=== PATIENT | male | born 1955 | race Caucasian/White ===

== ENCOUNTER 2019-02-03 17:05 | Inpatient (IN) | payer OTHER ==
--- NOTE | 2019-02-03 18:18 | PDOC ---
History of Present Illness - General Chief Complaint: Shortness of Breath Stated Complaint: SOB Time Seen by Provider: 02/03/19 18:16 - History of Present Illness Initial Comments: 02/03/19 19:00 HPI: 63 y/o M with hx ESRD via left arms AVF (MWF), DM, HTN, CAD s/p CABG and stents , hx of recurrent pulmonary edema requiring drainage catheter and multiple thoracenteses c/b infection and ?abscess vs empyema s/p VATS, COPD, lymphoma (s/ p radiation now in remission) presenting with 1 week of URI symptoms with SOB. He states 6 days ago he started feeling sore throat and the next couple days worsened to include cough with white sputum and sinus congestion. He has SOB at baseline due to COPD, but he said this week its worsened to the extent that he cant walk more than 10ft without SOB. He took a duonebs at home that improved symptoms slightly. He reports he is from [place], [place] and before flying to [place] he saw his PCP and was given azithromycin for bronchitis infection. After arriving to [place], his SOB worsened and needed an urgent care visit where his sats were 93% and was recommended to come to the ED. Of note, he also reports vague abdominal pain when he gets short of breath that improves after resting. Patient denies fever, chills, chest pain, palpitations, nausea, vomiting, diarrhea, constipation, dysuria, hematuria, BPR, weakness, sensory changes. PMHx: as noted above ROS: as noted SHx: Denies tobacco use; no alcohol use; no rec drugs Allergies: NKDA PCP: patient is from [place] for the weekend and has care done at [facility] in [place] ROS: GENERAL/CONSTITUTIONAL: No fever or chills. No weakness. HEAD, EYES, EARS, NOSE AND THROAT: +sore throat, sinus congestion CARDIOVASCULAR: No chest pain or shortness of breath RESPIRATORY: +cough, wheezing GASTROINTESTINAL: No nausea, vomiting, diarrhea or constipation. GENITOURINARY: No dysuria, frequency, or change in urination. MUSCULOSKELETAL: No joint or muscle swelling or pain. No neck or back pain. SKIN: No rash NEUROLOGIC: No headache, vertigo, loss of consciousness, or change in strength/ sensation. ENDOCRINE: No increased thirst. No abnormal weight change HEMATOLOGIC/LYMPHATIC: No anemia, easy bleeding, or history of blood clots. ALLERGIC/IMMUNOLOGIC: No hives or skin allergy. PE: GENERAL: Awake, alert, and fully oriented, mild acute distress HEAD: No signs of trauma, normocephalic, atraumatic EYES: EOMI, sclera anicteric, conjunctiva clear ENT: Auricles normal inspection, hearing grossly normal, nares patent, oropharynx clear without exudates. Moist mucosa NECK: Normal ROM, no lymphadenopathy LUNGS: audible cough, symmetrical chest rise, Rhonchi and wheezing auscultated in lung rodriguez through, worse on R>L HEART: Regular rate and rhythm, normal S1 and S2, no murmurs, peripheral pulses 2+ and equal bilaterally. ABDOMEN: Soft, nontender, nondistended, normoactive bowel sounds, reducible ventral hernia with no overlying skin changes. No guarding, no rebound. No masses EXTREMITIES: Normal inspection, Normal range of motion, no edema. No clubbing or cyanosis. NEUROLOGICAL: Cranial nerves II through XII grossly intact. Normal speech, normal gait, no focal sensorimotor deficits SKIN: Warm, Dry, normal turgor, no rashes or lesions noted Past History - Past Medical History Allergies/Adverse Reactions: Allergies Allergy/AdvReac Type Severity Reaction Status Date / Time No Known Allergies Allergy Verified 02/03/19 17:17 Home Medications: Ambulatory Orders Aspirin 81 mg PO DAILY 02/03/19 Calcium Acetate [Phoslo -] 667 mg PO TID 02/03/19 Candesartan Cilexetil [Atacand] 8 mg PO BID 02/03/19 Carvedilol 25 mg PO BID 02/03/19 Glipizide 10 mg PO BID 02/03/19 Montelukast Na [Singulair -] 10 mg PO DAILY 02/03/19 Pantoprazole Sodium 40 mg PO DAILY 02/03/19 Pravastatin Sodium [Pravachol (Nf)] 40 mg PO HS 02/03/19 Sodium Bicarbonate - 1,950 mg PO TID 02/03/19 Asthma: Yes Cardiac Disorders: Yes COPD: No Diabetes: Yes Other medical history: renal failure stage 4 - Surgical History Cardiac Surgery: Yes (bypass 05/2006) - Suicide/Smoking/Psychosocial Hx Smoking History: Never smoked *Physical Exam - Vital Signs Last Vital Signs Temp Pulse Resp BP Pulse Ox 98.2 F 82 20 143/62 95 02/03/19 17:12 02/03/19 17:12 02/03/19 17:12 02/03/19 17:12 02/03/19 17:12 ED Treatment Course - LABORATORY CBC & Chemistry Diagram: 02/03/19 20:05 02/03/19 20:05 Medical Decision Making - Medical Decision Making 02/03/19 21:24 63 y/o M with hx ESRD via left arms AVF (MWF), DM, HTN, CAD s/p CABG and stents , COPD, lymphoma (now in remission) presenting with 1 week of URI symptoms with SOB, currently being treated for bronchitis by PCP but now with worsening O2sats to 93% at urgent care. Sats on arrival 95%. PE notable for rhonchi and wheezing on pulmonary exam R>L -cbc, cmp, trops, bnp, vbg -ekg, cxr -duo nebs, salumedrol 125mg, ceftriaxone, azithromycin 02/03/19 23:11 patient now maintaining sats >93% after ambulation 02/03/19 23:25 discussed cxr with attending Dr Chang: right sided consolidation with concern for pna 02/03/19 23:26 ekg: NSR; RBBB; no vanessa admitted under Dr Figueroa *DC/Admit/Observation/Transfer Diagnosis at time of Disposition: Pneumonia Qualifiers: Pneumonia type: due to unspecified organism Laterality: right Lung location: middle lobe of lung Qualified Code(s): J18.1 - Lobar pneumonia, unspecified organism Fluid overload Qualifiers: Hypervolemia type: unspecified Qualified Code(s): E87.70 - Fluid overload, unspecified - Discharge Dispostion Condition at time of disposition: Stable Decision to Admit order: Yes - Referrals Referrals: ON STAFF,NOT [Primary Care Provider] - - Patient Instructions - Post Discharge Activity
--- NOTE | 2019-02-03 18:46 | PDOC ---
Attending Attestation - Resident Resident Name: Ranjan Alva - ED Attending Attestation I have performed the following: I have examined & evaluated the patient, The case was reviewed & discussed with the resident, I agree w/resident's findings & plan, Exceptions are as noted - HPI HPI: 02/03/19 18:45 63y M COPD, CHF, ESRD (MWF, last dialysis yesterday) presents with cough/sob. PT states he started with sore throat last tuesday followed by cough productive of whitish sputum starting tuesday along with CROSS - went to his PMD and was given an rx for azithromycin yesterday. He went to urgent care today who noticed he was wheezing, gave him a neb and told him to come to the ED for a cxr - pt notes some cross with his cough. denies any chest pain. pt does note some epigastric pain from his hernia when he is coughing. denies any diaphoresis , leg swelling, hemoptysis, back pain. . GENERAL: The patient is awake, alert, and fully oriented, Nontoxic - in no acute distress. HEAD: Normocephalic, atraumatic. EYES: extraocular movements intact, sclera anicteric, conjunctiva clear. ENT: Normal voice, Moist mucous membranes. NECK: Normal range of motion, supple LUNGS: no acute respiratory distress, scattered wheezing and rhonchi HEART: Regular rate and rhythm, normal S1 and S2 without murmur, rub or gallop. ABDOMEN: Soft, nontender, No guarding, no rebound. No CVA tenderness, soft reducible hernia on epigastrium in midline. EXTREMITIES: Normal range of motion, no edema. vascular access in RUE with thrill NEUROLOGICAL: No facial assymetry, Normal speech, moving all 4 extremities spontaneously and symemtrically PSYCH: Normal mood, normal affect. SKIN: Warm, Dry, normal turgor, a/p likely copd exacerbation vs viral illness consider fluid overload, chf, pna will obtain blood work, vbg, bnp, cxr will give duonebs and steroids will reassess - Physicial Exam PE: 02/09/19 13:51 see above - Medical Decision Making 02/03/19 19:17 signed out to evening team to reaseses
[2019-02-03] MEDS ORDERED: ALBUTEROL SO4 2.5/IPRATROPIUM 0.5 INH SOL 3 ML VIAL.NEB. NEB ONE (18:53)
[2019-02-03] MEDS ORDERED: methylPREDNISolone NA SUCC 125 MG/2 ML VIAL IVPUSH ONE (19:16)
[2019-02-03] MEDS ORDERED: methylPREDNISolone NA SUCC 125 MG/2 ML VIAL ONE (19:43)
[2019-02-03] MEDS ORDERED: ALBUTEROL SO4 0.083% IH SOL 2.5 MG/3 ML VIAL.NEB. NEB ONE (19:43)
[2019-02-03] MEDS ORDERED: CEFTRIAXONE 1 GM in DEXTROSE 5%-WATER - 50 ML IVPB ONE (19:56)
[2019-02-03] MEDS ORDERED: AZITHROMYCIN IVPB 500 MG in DEXTROSE 5%-WATER - 250 ML IVPB ONE (19:56)
--- NOTE | 2019-02-03 20:13 | PDOC ---
*Physical Exam - Vital Signs Last Vital Signs Temp Pulse Resp BP Pulse Ox 98.2 F 82 20 143/62 95 02/03/19 17:12 02/03/19 17:12 02/03/19 17:12 02/03/19 17:12 02/03/19 17:12 ED Treatment Course - LABORATORY CBC & Chemistry Diagram: 02/03/19 20:05 02/03/19 20:05 - Medications Given in the ED: ED Medications Discontinued Medications Generic Name Dose Route Start Last Admin Trade Name Terry PRN Reason Stop Dose Admin Albuterol/Ipratropium 1 amp 02/03/19 18:53 02/03/19 19:45 Duoneb - NEB 02/03/19 18:54 1 amp ONCE ONE Administration Methylprednisolone Sodium Succinate 125 mg 02/03/19 19:16 02/03/19 19:50 Solu-Medrol - IVPUSH 02/03/19 19:17 125 mg ONCE ONE Administration Medical Decision Making - Medical Decision Making 02/03/19 20:12Case signed out to me. Pt has cough and coarse breath sounds bilaterally. Pt has no fever. Pt has rhonchi and egophony. 02/03/19 20:56 Pt has a BNP of 5500 and he will be admitted for fluid overload and possible pneumonia *DC/Admit/Observation/Transfer Diagnosis at time of Disposition: Pneumonia, Fluid overload - Referrals - Patient Instructions - Post Discharge Activity
[2019-02-03 20:16] LABS: HEMATOCRIT 37.5 % (35.4-49); HEMOGLOBIN 12.3 GM/dL (11.7-16.9); LYMPH % 21.5 % (8-40); MCH 31.7 pg (25.7-33.7); MCHC 32.7 g/dl (32.0-35.9); MONO % 12.3 % (3.8-10.2); NEUT % 59.2 % (42.8-82.8); RBC 3.86 M/mm3 (4.00-5.60); RDW 14.5 % (11.9-15.9); WHITE BLOOD COUNT 7.1 K/mm3 (4.0-10.0)
[2019-02-03 20:18] LABS: VENOUS PC02 48.2 mmHg (38-52); VENOUS PH 7.33 (7.31-7.41)
[2019-02-03 20:19] LABS: VENOUS PO2 < 49 mmHg (28-48)
[2019-02-03 20:26] LABS: MEAN PLT VOLUME 9.7 fl (7.5-11.1); PLATELET COUNT 114 K/MM3 (134-434)
[2019-02-03] MEDS ORDERED: AZITHROMYCIN IVPB 500 MG/250 ML BAG IVPB ONE (20:47)
[2019-02-03] MEDS ORDERED: CEFTRIAXONE 1 GM/50 ML BAG ONE (20:47)
[2019-02-03 21:04] LABS: ALBUMIN 3.5 g/dl (3.4-5.0); BILIRUBIN,TOTAL 0.5 mg/dL (0.2-1); BLOOD UREA NITROGEN 75.1 mg/dL (7-18); CALCIUM 7.3 mg/dL (8.5-10.1); POTASSIUM 4.3 mmol/L (3.5-5.1)
[2019-02-03 21:06] LABS: CREATININE 9.2 mg/dL (0.55-1.3)
--- NOTE | 2019-02-04 00:46 | PN ---
Teaching Attending Note Name of Resident: Kush Jin ATTENDING PHYSICIAN STATEMENT I saw and evaluated the patient. Chart, data, imaging reviewed. I reviewed the resident's note and discussed the case with the resident. I agree with the resident's findings and plan as documented. SUBJECTIVE: 63yo man with CAD s/p 4 vessel CABG 2006 a [facility], COPD, DM, HTN, lymphoma, ESRD on HD, here visiting from [place], reports cough, malaise, since 01/30, says his boss was sick and might have infected him, received azithromcyin rx from PCP the next day which didnt help. Went to urgent care center 02/03 in am, received nebulizer treatment which helped slightly, came to ER seeking cxr. s/p azithromcyin, ceftriaxone in er. OBJECTIVE: Last Vital Signs Temp Pulse Resp BP Pulse Ox 98.1 F 82 20 155/77 96 02/03/19 23:04 02/03/19 23:04 02/03/19 23:04 02/03/19 23:04 02/03/19 23:04 general - coughing, hoarseness heent- at, nc, mild pharyngeal injection neck supple cv s1+s2+ rrr no murmur chest- diffuse rhonchi, mild exp wheezing abd- soft, nt, bs+ ext left upper ext avf fistula, good thrill, bruit, chronic venous changes on lower extremities b/ Abnormal Lab Results 02/03/19 02/03/19 02/03/19 20:05 20:05 20:05 RBC 3.86 L MCV 97.0 H Plt Count 114 L Monocytes % 12.3 H Eosinophils % 6.0 H POC VBG pO2 BUN 75.1 H Creatinine 9.2 H* Random Glucose 339 H Calcium 7.3 L Alkaline Phosphatase 202 H B-Natriuretic Peptide 5523.0 H Total Protein 6.0 L 02/03/19 20:05 RBC MCV Plt Count Monocytes % Eosinophils % POC VBG pO2 < 49 H BUN Creatinine Random Glucose Calcium Alkaline Phosphatase B-Natriuretic Peptide Total Protein cxr - reviewed- right mid/lower lobe infiltrate ekg - nsr, rbbb q waves in anterior lateral leads , poor r wave progression, prolonged qtc ASSESSMENT AND PLAN: #Community acquired pneumonia with poor response to azithromycin in immunocompromised patient. Likely pna superimposed on viral uri -flu swab -blood cultures x2 -ur legionella ag -sputum culture -vancomcyin 1g stat -cefepime 1g IV -supplemental oxygen -antibiotics should be dosed for renal failure -lactate -ID consult #ESRD - hd m,w,f -renal consult for HD -avoid ARB in renal failure -sodium bicard home dose -fluid restriction #DM - uncontrolled hyperglycemia -lantus 10 units qhs -novolog sliding scale #CAD/ s/p cabg, no baseline echo -echo to evaluate for chf -pravastatin home dose -carvedilol home dose #nonhodgkin lymphona #COPD? -duonebs q6hrs prn #DVT ppx - heparin sc
[2019-02-04] MEDS ORDERED: ALBUTEROL SO4 2.5/IPRATROPIUM 0.5 INH SOL 3 ML VIAL.NEB. NEB PRN (00:48)
--- NOTE | 2019-02-04 01:37 | HP ---
CHIEF COMPLAINT: SOB PCP: HISTORY OF PRESENT ILLNESS: Mr. Pereira is a 63 yo man with history ESRD (MWF dialysis), DM, HTN, CAD s/p CABG and stents, COPD and lymphoma (s/p radiation, now in remission). The patient also reported a hx of recurrent pulmonary edema requiring drainage catheter and multiple thoracenteses c/b infection s/p VATS. The patient said that he had this issue until about 7 years ago when he began dialysis. After starting dialysis he reports he has not had any issues with pulmonary edema. The patient is visiting from [facility]. In the ED the patient presented with a CC of URI symptoms with SOB since 01/30. He states that his boss at work was sick and that a few days ago he started feeling sore throat and the next couple days worsened to include cough with white sputum and sinus congestion. He says that on he visited his PCP and they prescribed him a Zpack. He states it doesn't seem to be helping yet but notes he still has 2 days remaining. He also reports that for the past several months he has been noticing increasing shortness of breath on exertion. He states that he finds it difficult to lay flat on his back and finds that laying on his side makes it easier to breath. He also reports that his friend gifted him a wedge pillow to try and sleep with, however he finds it uncomfortable so he doesn't use it. The patient also has some chronic SOB at baseline due to his COPD, but noted that in the last few days it has acutely worsened and he can hardly walk without symptoms. He came to the ED at the advice of an urgent care center he visted after arriving in [place] because of his worsening SOB. They discovered he was satting in the low 90s and recommended he come in. Patient denies fever, chills, chest pain, palpitations, nausea, vomiting, diarrhea, constipation, dysuria, hematuria, weakness, numbness or tingling in the hands or feet. In the ED he was given azithromycin and ceftriaxone. CXR showed an area of questionable consolidation in the R lower lobe, in addition to bilateral blunting of the costophrenic angles and clips present from his CABG. Recent Travel: yes, is visiting from [place] where he lives. PAST MEDICAL HISTORY: ESRD (MWF), DM, HTN, CAD s/p CABG and stents, COPD, Lymphoma (s/p radation, now in remission). PAST SURGICAL HISTORY: CABG and stents (2006) VATs Social History: Smoking: denies Alcohol: denies Drugs: denies Family History: Mother- DM Father- HF Allergies- No Known Allergies Allergy (Verified 02/03/19 17:17) HOME MEDICATIONS: Home Medications Medication Instructions Recorded Aspirin 81 mg PO DAILY 02/03/19 Calcium Acetate [Phoslo -] 667 mg PO TID 02/03/19 Candesartan Cilexetil [Atacand] 8 mg PO BID 02/03/19 Carvedilol 25 mg PO BID 02/03/19 Glipizide 10 mg PO BID 02/03/19 Montelukast Na [Singulair -] 10 mg PO DAILY 02/03/19 Pantoprazole Sodium 40 mg PO DAILY 02/03/19 Pravastatin Sodium [Pravachol (Nf)] 40 mg PO HS 02/03/19 Sodium Bicarbonate - 1,950 mg PO TID 02/03/19 REVIEW OF SYSTEMS CONSTITUTIONAL: Absent: fever, chills, diaphoresis, generalized weakness, malaise, loss of appetite, weight change HEENT: sore throat, sinus congestion Absent: rhinorrhea, throat swelling, difficulty swallowing, mouth swelling, ear pain, eye pain, visual changes CARDIOVASCULAR: Absent: chest pain, syncope, palpitations, irregular heart rate, lightheadedness , peripheral edema RESPIRATORY: cough, wheezing Absent: cough, shortness of breath, dyspnea with exertion, orthopnea, wheezing, stridor, hemoptysis GASTROINTESTINAL: Absent: abdominal pain, abdominal distension, nausea, vomiting, diarrhea, constipation, melena, hematochezia GENITOURINARY: Absent: dysuria, frequency, urgency, hesitancy, hematuria, flank pain, genital pain MUSCULOSKELETAL: Absent: myalgia, arthralgia, joint swelling, back pain, neck pain SKIN: Absent: rash, itching, pallor HEMATOLOGIC/IMMUNOLOGIC: Absent: easy bleeding, easy bruising, lymphadenopathy, frequent infections ENDOCRINE: Absent: unexplained weight gain, unexplained weight loss, heat intolerance, cold intolerance NEUROLOGIC: Absent: headache, focal weakness or paresthesias, dizziness, unsteady gait, seizure, mental status changes, bladder or bowel incontinence PSYCHIATRIC: Absent: anxiety, depression, suicidal or homicidal ideation, hallucinations. PHYSICAL EXAMINATION Vital Signs - 24 hr 02/03/19 02/03/19 17:12 23:04 Temperature 98.2 F 98.1 F Pulse Rate 82 Pulse Rate [ 82 Apical] Respiratory 20 20 Rate Blood Pressure 143/62 Blood Pressure 155/77 [Right Arm] O2 Sat by Pulse 95 96 Oximetry (%) GENERAL: Awake, sleepy, and fully oriented, in no acute distress. HEAD: Normal with no signs of trauma. EYES: Pupils equal, round and reactive to light, extraocular movements intact, sclera anicteric, conjunctiva clear. No lid lag. EARS, NOSE, THROAT: Ears normal, nares patent, oropharynx clear without exudates. Moist mucous membranes. NECK: Normal range of motion, supple without lymphadenopathy. LUNGS: Breath sounds equal to auscultation bilaterally, crackles and ronchi noted throughout all lung rodriguez. Expiratory wheezes noted at the bases R>L. No accessory muscle use. HEART: Distant heart sounds, regular rate and rhythm, normal S1 and S2. ABDOMEN: Soft, nontender, not distended, normoactive bowel sounds, no guarding, no rebound. Small reducible hernia noted in epigastric area. MUSCULOSKELETAL: Normal range of motion at all joints. No bony deformities or tenderness. No CVA tenderness. UPPER EXTREMITIES: 2+ pulses, warm, well-perfused. No cyanosis. No clubbing. No peripheral edema, LUE has dialysis fistula with palpable thrill. LOWER EXTREMITIES: 2+ pulses, warm, well-perfused. No calf tenderness. No peripheral edema. NEUROLOGICAL: Cranial nerves II-XII intact. Normal speech. Gait not observed. PSYCHIATRIC: Cooperative. Good eye contact. Appropriate mood and affect. SKIN: Warm, dry, normal turgor. Laboratory Results - last 24 hr 02/03/19 02/03/19 02/03/19 20:05 20:05 20:05 WBC 7.1 RBC 3.86 L Hgb 12.3 Hct 37.5 MCV 97.0 H MCH 31.7 MCHC 32.7 RDW 14.5 Plt Count 114 L MPV 9.7 Absolute Neuts (auto) 4.2 Neutrophils % 59.2 Lymphocytes % 21.5 Monocytes % 12.3 H Eosinophils % 6.0 H Basophils % 1.0 Nucleated RBC % 0 VBG pH POC VBG pCO2 POC VBG pO2 VBG HCO3 VBG O2 Sat (Jazmin) VBG Base Excess Sodium 137 Potassium 4.3 Chloride 99 Carbon Dioxide 27 Anion Gap 12 BUN 75.1 H Creatinine 9.2 H* Est GFR (CKD-EPI)AfAm 6.36 Est GFR (CKD-EPI)NonAf 5.49 Random Glucose 339 H Calcium 7.3 L Total Bilirubin 0.5 AST 15 ALT 17 Alkaline Phosphatase 202 H Troponin I 0.03 B-Natriuretic Peptide 5523.0 H Total Protein 6.0 L Albumin 3.5 02/03/19 20:05 WBC RBC Hgb Hct MCV MCH MCHC RDW Plt Count MPV Absolute Neuts (auto) Neutrophils % Lymphocytes % Monocytes % Eosinophils % Basophils % Nucleated RBC % VBG pH 7.33 POC VBG pCO2 48.2 POC VBG pO2 < 49 H VBG HCO3 24.4 VBG O2 Sat (Jazmin) 74.3 VBG Base Excess -1.4 Sodium Potassium Chloride Carbon Dioxide Anion Gap BUN Creatinine Est GFR (CKD-EPI)AfAm Est GFR (CKD-EPI)NonAf Random Glucose Calcium Total Bilirubin AST ALT Alkaline Phosphatase Troponin I B-Natriuretic Peptide Total Protein Albumin ASSESSMENT/PLAN: Mr. Pereira is a 63 yo man with history ESRD (MWF dialysis), DM, HTN, CAD s/p CABG and stents, COPD and lymphoma (s/p radiation, now in remission) presenting with a 1 week history of worsening SOB accompanied by productive cough with white sputum. #CAP- Patient presnting with productive cough, sick contacts, CXR with possible consolidation present in the RLL, and physical exam findings of crackles/ ronchi and expiratory wheezes at the bases R>L. Possible PNA superimposed on viral URI - flu swab - blood cultures x2 - ur legionella ag - sputum culture - vancomcyin 1g stat - cefepime 1g IV - supplemental oxygen - antibiotics should be dosed for renal failure - lactate - ID consult #ESRD - Hemodialysis on m,w,f - renal consult for HD - avoid ARB in renal failure - sodium bicarb home dose - fluid restriction #DM - uncontrolled hyperglycemia - lantus 10 units qhs - novolog sliding scale #CAD s/p cabg, no baseline echo. Patient denies CHF diagnosis but has significan cardiac history, appears volume overloaded on exam and endorses symptoms such as difficulty breathing flat on his back. On exam the patient has crackles and ronchi in all lung rodriguez and sounds volume overloaded. - echo to evaluate for chf - pravastatin home dose - carvedilol home dose #nonhodgkin lymphona #COPD -duonebs q6hrs prn #DVT ppx - heparin sc Visit type - Emergency Visit Emergency Visit: Yes ED Registration Date: 02/03/19 Care time: The patient presented to the Emergency Department on the above date and was hospitalized for further evaluation of their emergent condition. - New Patient This patient is new to me today: Yes Date on this admission: 02/05/19 - Critical Care Critical Care patient: No ATTENDING PHYSICIAN STATEMENT I saw and evaluated the patient. I reviewed the resident's note and discussed the case with the resident. I agree with the resident's findings and plan as documented. SUBJECTIVE: OBJECTIVE: ASSESSMENT AND PLAN:
[2019-02-04] MEDS: HEPARIN NA (PORCINE) 5,000 UNITS/ML 1ML VIAL SQ SCH ×3 (06:31→21:26)
[2019-02-04] MEDS: INSULIN SLIDING SCALE (NOVOLOG) 1 VIAL SQ SCH ×5 (06:32→21:05)
[2019-02-04] MEDS: SODIUM BICARBONATE 650 MG TABLET PO SCH ×3 (06:32→21:26)
[2019-02-04 07:10] LABS: ARTERIAL BLD GAS O2 SATURATION 96.2 % (95-98); ARTERIAL BLOOD GAS BASE EXCESS -4.4 meq/l (-2-2); ARTERIAL BLOOD GAS PCO2 41.2 mmHg (35-45); ARTERIAL BLOOD GAS PO2 94.1 mmHg (80-100); ARTERIAL BLOOD GAS pH 7.33 (7.35-7.45)
[2019-02-04 07:11] LABS: ALLENS TEST POSITIVE
[2019-02-04] MEDS: CALCIUM ACETATE 667 MG CAPSULE (FP) PO SCH ×3 (08:29→17:09)
[2019-02-04] MEDS ORDERED: CEFEPIME HCL 1 GM VIAL (RESTRICTED TO ID) ONE (09:22)
[2019-02-04] MEDS ORDERED: DEXTROSE 5%-WATER 100 ML IVPB ONE (09:23)
[2019-02-04] MEDS: ASPIRIN 81 MG CHEWABLE TABLETS PO SCH (09:29)
[2019-02-04] MEDS: PANTOPRAZOLE 40 MG TABLET (FP) PO SCH (09:29)
[2019-02-04] MEDS: CARVEDILOL 25 MG TABLET (FP) PO SCH ×2 (09:29→21:26)
[2019-02-04] MEDS ORDERED: ENOXAPARIN NA (PORCINE) 40 MG/0.4 ML DISP.SYRIN SQ SCH (10:00)
[2019-02-04] MEDS ORDERED: VANCOMYCIN 1 GM in D5W (PRE-DOCKED) 1,000 MG/250 ML IVPB SCH (10:00)
[2019-02-04] MEDS ORDERED: CEFEPIME 1 GM in DEXTROSE 5%-WATER 100 ML IVPB SCH (10:00)
[2019-02-04 10:09] LABS: BASO % 0.1 % (0-2.0); EOS % 0.1 % (0-4.5); HEMATOCRIT 36.1 % (35.4-49); HEMOGLOBIN 12.1 GM/dL (11.7-16.9); LYMPH % 11.1 % (8-40); MCH 32.3 pg (25.7-33.7); MCHC 33.6 g/dl (32.0-35.9); MEAN PLT VOLUME 9.7 fl (7.5-11.1); MONO % 2.3 % (3.8-10.2); NEUT % 86.4 % (42.8-82.8); PLATELET COUNT 116 K/MM3 (134-434); RBC 3.76 M/mm3 (4.00-5.60); RDW 14.7 % (11.9-15.9); WHITE BLOOD COUNT 5.7 K/mm3 (4.0-10.0)
--- NOTE | 2019-02-04 10:37 | CON.NEP ---
Consult Consult Specialty:: nephrology Reason for Consultation:: esrd - History of Present Illness Chief Complaint: cough History of Present Illness: 63 y/o M with hx ESRD via left arms AVF (MWF), DM, HTN, CAD s/p CABG and stents , hx of recurrent pulmonary edema requiring drainage catheter and multiple thoracenteses c/b infection and ?abscess vs empyema s/p VATS, COPD, lymphoma (s/ p radiation now in remission) presenting with 1 week of URI symptoms with SOB. He states 6 days ago he started feeling sore throat and the next couple days worsened to include cough with white sputum and sinus congestion. He has SOB at baseline due to COPD, but he said this week its worsened to the extent that he cant walk more than 10ft without SOB. He took a duonebs at home that improved symptoms slightly. He reports he is from [place], [place] and before flying to [place] he saw his PCP and was given azithromycin for bronchitis infection. After arriving to [place], his SOB worsened and needed an urgent care visit where his sats were 93% and was recommended to come to the ED. Of note, he also reports vague abdominal pain when he gets short of breath that improves after resting. 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 He has high interdialytic weight gains and usually has about 4 liters of fluid removed. Has severe hyperparathyroidism and was on parsabiv but it was stopped for unclear reasons. He takes renvela 3 tabs and phoslo 1 tab tid. - History Source History Provided By: Patient, Family Member, Medical Record - Past Medical History Cardio/Vascular: Yes: CHF Pulmonary: Yes: Bronchitis, COPD Renal/: Yes: Renal Failure, Hemodialysis Heme/Onc: Yes: Cancer (lymphoma) Endocrine: Yes: Diabetes Mellitus, Hyperparathyroidism (secondary) - Past Surgical History Past Surgical History: Yes: CABG - Alcohol/Substance Use Hx Alcohol Use: No - Smoking History Smoking history: Never smoked Home Medications - Allergies Allergies/Adverse Reactions: Allergies Allergy/AdvReac Type Severity Reaction Status Date / Time No Known Allergies Allergy Verified 02/03/19 17:17 - Home Medications Home Medications: Ambulatory Orders Aspirin 81 mg PO DAILY 02/03/19 Calcium Acetate [Phoslo -] 667 mg PO TID 02/03/19 Candesartan Cilexetil [Atacand] 8 mg PO BID 02/03/19 Carvedilol 25 mg PO BID 02/03/19 Glipizide 10 mg PO BID 02/03/19 Montelukast Na [Singulair -] 10 mg PO DAILY 02/03/19 Pantoprazole Sodium 40 mg PO DAILY 02/03/19 Pravastatin Sodium [Pravachol (Nf)] 40 mg PO HS 02/03/19 Sodium Bicarbonate - 1,950 mg PO TID 02/03/19 Renvela - 800 mg PO TID 02/04/19 Review of Systems - Review of Systems Constitutional: reports: No Symptoms Eyes: reports: No Symptoms HENT: reports: Throat Pain Neck: reports: No Symptoms Cardiovascular: reports: Shortness of Breath Respiratory: reports: Cough, SOB, SOB on Exertion Gastrointestinal: reports: Abdominal Pain Genitourinary: reports: No Symptoms Breasts: reports: No Symptoms Reported Musculoskeletal: reports: No Symptoms Integumentary: reports: No Symptoms Neurological: reports: No Symptoms Endocrine: reports: No Symptoms Hematology/Lymphatic: reports: No Symptoms Psychiatric: reports: No Symptoms Nephrology Consult - Height Height: 5 ft 6 in - Weight Weight: 200 lb 7 oz - BMI Body Mass Index (BMI): 32.3 - Lab Results CBC,BMP: CBC, BMP 02/04/19 09:30 Anion Gap: Anion Gap Anion Gap 12 MMOL/L (8-16) 02/03/19 20:05 - Imaging Chest X-ray: Report Reviewed, Image Reviewed - Physical Examination Vital Signs: Vital Signs Temperature 97.8 F 02/04/19 03:34 Pulse Rate 82 02/04/19 03:34 Respiratory Rate 18 02/04/19 03:34 Blood Pressure 156/77 02/04/19 03:34 O2 Sat by Pulse Oximetry (%) 95 02/04/19 08:32 Constitutional: Yes: No Distress, Calm, Mild Distress Eyes: Yes: Conjunctiva Clear, EOM Intact HENT: Yes: Atraumatic, Normocephalic Neck: Yes: Supple, Trachea Midline Cardiovascular: Yes: Regular Rate and Rhythm, Murmur Respiratory: Yes: Diminished (diminished on left) Gastrointestinal: Yes: Soft Renal/: Yes: WNL Access for Hemodialysis: AV Fistula Musculoskeletal: Yes: WNL Extremities: Yes: WNL Edema: Yes Edema: LLE: Trace, RLE: Trace Integumentary: Yes: Other (has a scar on left chest posteriorly) Neurological: Yes: Alert, Oriented Psychiatric: Yes: Alert, Oriented Assessment/Plan IMPRESSION esrd h/o NHL in remission htn h/o cabg h/o thoracotomy probable copd exacerbation reduced breath sounds on left may be from previous surgery- pleural reaction secondary hyperparathyroidism previously on parsabiv which was stopped possibly because of hypocalcemia PLAN will write orders for HD tomorrow would obtain CT of chest to evaluate reduced breath sounds further can get calcitriol for low calcium though he says he is noncompliant with meds antibiotics per primary team MV
[2019-02-04 10:46] LABS: BLOOD UREA NITROGEN 90.8 mg/dL (7-18); CALCIUM 7.6 mg/dL (8.5-10.1); MAGNESIUM 2.1 mg/dL (1.8-2.4); PHOSPHOROUS 5.4 mg/dL (2.5-4.9); POTASSIUM 5.2 mmol/L (3.5-5.1)
[2019-02-04 10:50] LABS: CREATININE 10.2 mg/dL (0.55-1.3)
[2019-02-04] MEDS ORDERED: SODIUM CHLORIDE 250 ML IV PRN (10:50)
--- NOTE | 2019-02-04 11:44 | PN ---
Progress Note (short form) - Note Progress Note: Seen and examined; please see overnight note for today's exam for billing, etc. 63 y/o male admitted for CAP; found to have DM with uncontrolled hypergly to 500s this AM but no positive anion gap. EKG documented as having prolonged QTc but I don't see a complete study uploaded so will repeat. Problems: -SOB: On my review of CXR looks overloaded; per radiology blunted CP angles, etc. consistent with fluid overload. Checking echo, fluid removal with HD. Consult CV if reduced LVEF and try to obtain old records. -Presumed CAP: Failed OP azithro; CXR read noted and states 'no infiltrates.' Continue coverage until verified with CT given presumed immunocompromise. Plan on adding atypical coverage with doxy if true PNA on CT. Followup urine Ags, sputum and blood cultures. Weaning from O2 as tolerated. -DM with uncontrolled hypergly: No anion gap; giving IV insulin. Changing to q4h fsg with SSI coverage and titrate up long acting based on requirements. Check A1c. Monitor closely on floor. -ESRD on HD: Renal following; to dialyze. -HyperK: Mild with no EKG changes noted -Hx HTN -? Long QTc: Followup EKG; I can't find the physical ER study or the uploaded copy Visit type - Emergency Visit Emergency Visit: No - New Patient This patient is new to me today: Yes Date on this admission: 02/04/19 - Critical Care Critical Care patient: No
[2019-02-04] MEDS ORDERED: ALBUTEROL SO4 0.042% IH SOL 1.25 MG/3 ML VIAL.NEB NEB PRN (11:57)
[2019-02-04] MEDS: ALBUTEROL SO4 2.5/IPRATROPIUM 0.5 INH SOL 3 ML VIAL.NEB. NEB SCH ×3 (12:40→20:05)
[2019-02-04] MEDS ORDERED: INSULIN REGULAR HUMAN 100 UNITS/ML *VIAL IVPUSH ONE (13:00)
[2019-02-04] MEDS: predniSONE 20 MG TABLET (UD) PO SCH (13:00)
[2019-02-04] MEDS: CALCITRIOL 1 MCG/ML BOT PO SCH (13:00)
--- NOTE | 2019-02-04 14:04 | CON.ID ---
Consult Consult Specialty:: infectious diseases Referred by:: Dr Sinclair Reason for Consultation:: r/o pneumonia,sob - History of Present Illness Chief Complaint: sob,bronchitis History of Present Illness: 63y M who lives in [place] COPD, CHF, ESRD presents with cough/sob. PT states he started with sore throat last tuesday followed by cough productive of whitish sputum starting tuesday went to his PMD and was given an rx for azithromycin . He went to urgent care today who noticed he was wheezing, gave him a neb and told him to come to the ED for a cxr - pt notes some encinas with his cough. denies any chest pain. pt does note some epigastric pain from his hernia when he is coughing. denies any diaphoresis, leg swelling, hemoptysis, back pain. denies any fever any other issues,says he has had bronchitis couple of times currently has a voice change but has remained stable - History Source History Provided By: Patient, Family Member Limitations to Obtaining History: No Limitations - Past Medical History Cardio/Vascular: Yes: CHF Pulmonary: Yes: Bronchitis, COPD Renal/: Yes: Renal Failure, Hemodialysis Endocrine: Yes: Diabetes Mellitus, Hyperparathyroidism (secondary) - Past Surgical History Past Surgical History: Yes: CABG - Alcohol/Substance Use Hx Alcohol Use: No - Smoking History Smoking history: Never smoked Home Medications - Allergies Allergies/Adverse Reactions: Allergies Allergy/AdvReac Type Severity Reaction Status Date / Time No Known Allergies Allergy Verified 02/03/19 17:17 - Home Medications Home Medications: Ambulatory Orders Aspirin 81 mg PO DAILY 02/03/19 Calcium Acetate [Phoslo -] 667 mg PO TID 02/03/19 Candesartan Cilexetil [Atacand] 8 mg PO BID 02/03/19 Carvedilol 25 mg PO BID 02/03/19 Glipizide 10 mg PO BID 02/03/19 Montelukast Na [Singulair -] 10 mg PO DAILY 02/03/19 Pantoprazole Sodium 40 mg PO DAILY 02/03/19 Pravastatin Sodium [Pravachol (Nf)] 40 mg PO HS 02/03/19 Sodium Bicarbonate - 1,950 mg PO TID 02/03/19 Renvela - 800 mg PO TID 02/04/19 Review of Systems - Review of Systems Constitutional: reports: No Symptoms Eyes: reports: No Symptoms HENT: reports: No Symptoms Neck: reports: No Symptoms Cardiovascular: reports: No Symptoms Respiratory: reports: Cough, SOB, SOB on Exertion Gastrointestinal: reports: No Symptoms Genitourinary: reports: No Symptoms Musculoskeletal: reports: No Symptoms Integumentary: reports: No Symptoms Neurological: reports: No Symptoms Endocrine: reports: No Symptoms Hematology/Lymphatic: reports: No Symptoms Psychiatric: reports: No Symptoms Physical Exam Vital Signs: Vital Signs Temperature 97.8 F 02/04/19 03:34 Pulse Rate 82 02/04/19 03:34 Respiratory Rate 18 02/04/19 03:34 Blood Pressure 156/77 02/04/19 03:34 O2 Sat by Pulse Oximetry (%) 95 02/04/19 08:32 Constitutional: Yes: Well Nourished, Calm, Mild Distress Eyes: Yes: Conjunctiva Clear HENT: Yes: Atraumatic, Normocephalic Neck: Yes: Supple, Trachea Midline Cardiovascular: Yes: Regular Rate and Rhythm Respiratory: Yes: Regular, CTA Bilaterally Gastrointestinal: Yes: Normal Bowel Sounds, Soft Musculoskeletal: Yes: WNL Extremities: Yes: Other (fistula site) Neurological: Yes: Alert, Oriented Psychiatric: Yes: Alert, Oriented Labs: CBC, BMP 02/04/19 09:30 02/04/19 09:30 Imaging - Results Chest X-ray: Report Reviewed, Image Reviewed Cat Scan: Report Reviewed, Image Reviewed Assessment/Plan esrd h/o NHL in remission htn h/o cabg h/o thoracotomy copd bronchitis plan will monitor off of abx probably symptoms due to fluid overload dialysis rest as per the team
[2019-02-04] MEDS: SEVELAMER CARBONATE 800 MG TAB (FP) PO SCH ×2 (14:46→21:26)
--- NOTE | 2019-02-04 15:38 | CON.CARD ---
Consult Consult Specialty:: cardiology Referred by:: hospitalist Reason for Consultation:: sob - History of Present Illness Chief Complaint: sob, cough History of Present Illness: 63 year old man with pmh HTN, DMII, HLD, CAD s/p CABG 2006 [facility], lymphoma, ESRD on HD, COPD, h/o recurrent pleural effusions s/p thoracentesis and VATS, lives in [place] where he sees his physicians, flew here last week, admitted with sob and cough. pt states he began feeling sick while in [place] but flew here anyway. states his boss was sick at work with a cold. [facility] he follows closely with his reproductive surgeon in [place] and recently underwent a preop work up for renal transplant consideration. [facility] he had a cardiac cath 09/2018 that showed no sig new obstructive CAD and medical management was recommended. was started on tx for AE COPD as outpatient with bronchodilators and azithromycin but did not improve so came to the hospital. he was seen and examined today in [facility]. states he is feeling a little better since admission. denies any chest pain, palpitations, pnd, orthopnea or LE edema. - History Source History Provided By: Patient, Family Member - Past Medical History Cardio/Vascular: Yes: CAD, CHF Pulmonary: Yes: Bronchitis, COPD Renal/: Yes: Renal Failure, Hemodialysis Endocrine: Yes: Diabetes Mellitus, Hyperparathyroidism (secondary) - Past Surgical History Past Surgical History: Yes: CABG - Alcohol/Substance Use Hx Alcohol Use: No - Smoking History Smoking history: Never smoked - Social History ADL: Independent Home Medications - Allergies Allergies/Adverse Reactions: Allergies Allergy/AdvReac Type Severity Reaction Status Date / Time No Known Allergies Allergy Verified 02/03/19 17:17 - Home Medications Home Medications: Ambulatory Orders Aspirin 81 mg PO DAILY 02/03/19 Calcium Acetate [Phoslo -] 667 mg PO TID 02/03/19 Candesartan Cilexetil [Atacand] 8 mg PO BID 02/03/19 Carvedilol 25 mg PO BID 02/03/19 Glipizide 10 mg PO BID 02/03/19 Montelukast Na [Singulair -] 10 mg PO DAILY 02/03/19 Pantoprazole Sodium 40 mg PO DAILY 02/03/19 Pravastatin Sodium [Pravachol (Nf)] 40 mg PO HS 02/03/19 Sodium Bicarbonate - 1,950 mg PO TID 02/03/19 Renvela - 800 mg PO TID 02/04/19 Family Disease History - Family Disease History Family History: Denies Review of Systems - Review of Systems Constitutional: reports: Weakness. denies: No Symptoms, Chills, Diaphoresis, Fever, Lethargy, Loss of Appetite, Malaise, Night Sweats, Unintentional Wgt. Loss, Other Eyes: denies: No Symptoms, Blind Spots, Blurred Vision, Double Vision, Eye Pain , Floaters, Photophobia, Recent Change in Vision, Other HENT: denies: No Symptoms, Difficult Swallowing, Ear Discharge, Ear Pain, Epistaxis, Gingival Bleeding, Hearing Loss, Mouth Swelling, Nasal Congestion, Ocular Prosthesis, Throat Pain, Toothache, Ringing in Ears, Other Neck: denies: No Symptoms, Decreased ROM, Lumps, Pain on Movement, Stiffness, Swollen Glands, Tenderness, Other Cardiovascular: reports: Shortness of Breath. denies: No Symptoms, Chest Pain, Edema, Palpitations, Other Respiratory: reports: Cough, Exercise Intolerance, SOB, SOB on Exertion. denies : No Symptoms, Hemoptysis, Orthopnea, PND, Snoring, Wheezing, Other Gastrointestinal: denies: No Symptoms, Abdominal Pain, Bloating, Constipation, Diarrhea, Dysphagia, Indigestion, Melena, Nausea, Rectal Bleeding, Vomiting, Vomiting Blood, Other Genitourinary: denies: No Symptoms, Burning, Discharge, Dysuria, Flank Pain, Frequency, Hematuria, Incontinence, Lesions, Menses, Pain, Testicular Mass, Testicular Pain, Testicular Swelling, Urgency, Vaginal Bleeding, Other Breasts: denies: No Symptoms Reported, See HPI, Breast Implants, Discharge from Nipple, Lumps, Pain, Skin Changes, Other Musculoskeletal: denies: No Symptoms, Back Pain, Crepitus, Decreased ROM, Extremity Pain, Joint Pain, Joint Swelling, Muscle Pain, Muscle Cramps, Muscle Weakness, Other Integumentary: denies: No Symptoms, Blister, Bruising, Change in Color, Eczema, Erythema, Incision, Lesions, Lump, Pallor, Pruritis, Rash, Wound, Other Neurological: denies: No Symptoms, Change in LOC, Change in Speech, Confusion, Dizziness, Headache, Incoordination, Numbness, Parasthesia, Pre-Existing Deficit , Seizure, Syncope, Tremors, Unsteady Gait, Weakness, Other Endocrine: denies: No Symptoms, Excessive Sweating, Flushing, Increased Hunger, Increased Thirst, Intolerance to Cold, Intolerance to Heat, Unexplained Weight Gain, Unexplained Weight Loss, Other Hematology/Lymphatic: denies: No Symptoms, Easily Bruised, Excessive Bleeding, Swollen Glands, Other Psychiatric: denies: No Symptoms, Altered Sleep Pattern, Anxiety, Depression, Hallucinations, Panic, Paranoia, Suicidal, Other - Risk Factors Known Risk Factors: Yes: Hypercholesterolemia, Hypertension Vital Signs: Vital Signs Temperature 97.8 F 02/04/19 03:34 Pulse Rate 82 02/04/19 03:34 Respiratory Rate 18 02/04/19 03:34 Blood Pressure 156/77 02/04/19 03:34 O2 Sat by Pulse Oximetry (%) 95 02/04/19 08:32 Constitutional: Yes: No Distress, Calm Eyes: Yes: Conjunctiva Clear, EOM Intact, PERRL HENT: Yes: Atraumatic, Normocephalic Neck: Yes: Supple, Trachea Midline Respiratory: Yes: Regular, Diminished, On Nasal O2, Rales, Rhonchi, Wheezes. No : SOB Gastrointestinal: Yes: Normal Bowel Sounds, Soft. No: Distention, Tenderness Cardiovascular: Yes: Regular Rate and Rhythm. No: Bradycardia, Tachycardia, Pulse Irregular, Gallop, Rub, Varicosities JVD: No Carotid Bruit: No PMI: Non-Displaced Heart Sounds: Yes: S1, S2. No: Split S2, S3, S4, Clicks, Gallop, Rub, Bruit Murmur: No: Systolic Murmur Extremities: Yes: WNL Edema: No Peripheral Pulses WNL: Yes Neurological: Yes: Alert, Oriented Psychiatric: Yes: Alert, Oriented - Other Data Labs, Other Data: CBC, BMP 02/04/19 09:30 02/04/19 09:30 Troponin, BNP 02/03/19 02/03/19 02/04/19 20:05 20:05 09:30 Troponin I 0.03 < 0.02 B-Natriuretic Peptide 5523.0 H Troponin, BNP 02/03/19 02/03/19 02/04/19 20:05 20:05 09:30 Troponin I 0.03 < 0.02 B-Natriuretic Peptide 5523.0 H Imaging - Results Chest X-ray: Report Reviewed, Image Reviewed EKG: Report Reviewed, Image Reviewed Other: Report Reviewed, Image Reviewed Assessment/Plan 63 year old man with pmh HTN, DMII, HLD, CAD s/p CABG 2006 [facility], lymphoma, ESRD on HD, COPD, h/o recurrent pleural effusions s/p thoracentesis and VATS, lives in [place] where he sees his physicians, flew here last week, admitted with sob and cough. pt states he began feeling sick while in [place] but flew here anyway. states his boss was sick at work with a cold. states he follows closely with his reproductive surgeon in [place] and recently underwent a preop work up for renal transplant consideration. [facility] he had a cardiac cath 09/2018 that showed no sig new obstructive CAD and medical management was recommended. was started on tx for AE COPD as outpatient with bronchodilators and azithromycin but did not improve so came to the hospital. he was seen and examined today in [facility]. states he is feeling a little better since admission. denies any chest pain, palpitations, pnd, orthopnea or LE edema. SOB/Cough -most likely AE COPD -possible mild component of pulm vascular congestion with known h/o CAD/CABG and presume chronic systolic CHF based on pts report -cardiac enzymes wnl, not c/w acs -recent cardiac cath showed no sig recurrent CAD that would need PCI and was medically managed -cont tx of AE COPD -volume removal with HD as needed -cont home cardiac meds -no additional cardiac testing is needed at this time. will see as needed. please call with additional questions.
--- NOTE | 2019-02-04 16:26 | EKG ---
Test Reason : Blood Pressure : / mmHG Vent. Rate : 077 BPM Atrial Rate : 077 BPM P-R Int : 160 ms QRS Dur : 158 ms QT Int : 462 ms P-R-T Axes : 075 265 -06 degrees QTc Int : 522 ms NORMAL SINUS RHYTHM RIGHT BUNDLE BRANCH BLOCK OLD INFERIOR INFARCT ABNORMAL ECG WHEN COMPARED WITH ECG OF 03-FEB-2019 19:39, NO SIGNIFICANT CHANGE WAS FOUND Confirmed by ELENITA VALENCIA MD ([id number]) on 02/04/2019 4:26:11 PM Referred By: Radha VELÁSQUEZ Confirmed By:ELENITA VALENCIA MD
--- NOTE | 2019-02-04 16:40 | EKG ---
Test Reason : Blood Pressure : / mmHG Vent. Rate : 079 BPM Atrial Rate : 079 BPM P-R Int : 166 ms QRS Dur : 154 ms QT Int : 448 ms P-R-T Axes : 072 252 -05 degrees QTc Int : 513 ms NORMAL SINUS RHYTHM RIGHT BUNDLE BRANCH BLOCK OLD INFERIOR INFARCT ABNORMAL ECG WHEN COMPARED WITH ECG OF 16-JUL-2009 10:26, RIGHT BUNDLE BRANCH BLOCK IS NOW PRESENT INFERIOR INFARCT NOT PRESENT Confirmed by ELENITA VALENCAI MD ([id number]) on 02/04/2019 4:40:08 PM Referred By: Confirmed By:ELENITA VALENCIA MD
[2019-02-04] MEDS: guaiFENesin 200 MG/10 ML 10 ML UNIT-DOSE CUPS PO PRN (17:09)
[2019-02-04] MEDS: ATORVASTATIN CA 10 MG TABLET (FP) PO SCH (21:26)
[2019-02-04] MEDS: MONTELUKAST NA 10 MG TABLET PO SCH (21:26)
[2019-02-05] MEDS: INSULIN SLIDING SCALE (NOVOLOG) 1 VIAL SQ SCH ×6 (00:29→21:18)
[2019-02-05] MEDS: SEVELAMER CARBONATE 800 MG TAB (FP) PO SCH ×3 (05:39→21:20)
[2019-02-05] MEDS: HEPARIN NA (PORCINE) 5,000 UNITS/ML 1ML VIAL SQ SCH ×3 (05:39→21:20)
[2019-02-05] MEDS: SODIUM BICARBONATE 650 MG TABLET PO SCH ×3 (05:39→21:19)
[2019-02-05] MEDS: guaiFENesin 200 MG/10 ML 10 ML UNIT-DOSE CUPS PO PRN ×2 (05:42→21:27)
[2019-02-05] MEDS: ALBUTEROL SO4 2.5/IPRATROPIUM 0.5 INH SOL 3 ML VIAL.NEB. NEB SCH ×4 (08:00→20:05)
[2019-02-05 08:01] LABS: BASO % 0.2 % (0-2.0); HEMOGLOBIN 10.8 GM/dL (11.7-16.9); LYMPH % 10.3 % (8-40); MCHC 33.6 g/dl (32.0-35.9); MEAN CELL VOLUME 95.1 fl (80-96); MONO % 4.8 % (3.8-10.2); NEUT % 84.7 % (42.8-82.8); PLATELET COUNT 95 K/MM3 (134-434); RBC 3.37 M/mm3 (4.00-5.60); RDW 14.7 % (11.9-15.9); WHITE BLOOD COUNT 8.1 K/mm3 (4.0-10.0)
[2019-02-05 08:05] LABS: ALBUMIN 3.1 g/dl (3.4-5.0); BILIRUBIN,TOTAL 0.5 mg/dL (0.2-1); CALCIUM 7.1 mg/dL (8.5-10.1); MAGNESIUM 1.9 mg/dL (1.8-2.4); PHOSPHOROUS 6.5 mg/dL (2.5-4.9); POTASSIUM 5.5 mmol/L (3.5-5.1); TOT PROT 5.2 g/dl (6.4-8.2)
[2019-02-05 08:30] LABS: BLOOD UREA NITROGEN 123.4 mg/dL (7-18); CREATININE 11.1 mg/dL (0.55-1.3)
[2019-02-05] MEDS: CARVEDILOL 25 MG TABLET (FP) PO SCH ×2 (09:00→21:19)
--- NOTE | 2019-02-05 09:37 | PN ---
Progress Note, Physician History of Present Illness: says still coughing voice sounds better - Current Medication List Current Medications: Active Medications Albuterol Sulfate (Ventolin 0.042trength) -) 1 amp NEB Q4H PRN PRN Reason: SHORT OF BREATH/WHEEZING Albuterol/Ipratropium (Duoneb -) 1 amp NEB RQID [facility] Last Admin: 02/05/19 08:00 Dose: 1 amp Aspirin (Asa -) 81 mg PO DAILY [facility] Last Admin: 02/04/19 09:29 Dose: 81 mg Atorvastatin Calcium (Lipitor -) 10 mg PO HS [facility] Last Admin: 02/04/19 21:26 Dose: 10 mg Calcitriol (Rocaltrol Liquid -) 0.5 mcg PO DAILY [facility] Last Admin: 02/04/19 13:00 Dose: 0.5 mcg Calcium Acetate (Phoslo -) 667 mg PO TIDCM [facility] Last Admin: 02/04/19 17:09 Dose: 667 mg Carvedilol (Coreg -) 25 mg PO BID [facility] Last Admin: 02/04/19 21:26 Dose: 25 mg Guaifenesin (Robitussin -) 10 ml PO Q6H PRN PRN Reason: COUGH Last Admin: 02/05/19 05:42 Dose: 10 ml Heparin Sodium (Porcine) (Heparin -) 5,000 unit SQ TID [facility] Last Admin: 02/05/19 05:39 Dose: 5,000 unit Cefepime HCl 1 gm/ Dextrose 100 mls @ 200 mls/hr IVPB DAILY [facility]; Protocol Sodium Chloride (Normal Saline -) 250 mls @ 3,000 mls/hr IV PRN PRN PRN Reason: Hypotension during Dialysis Stop: 02/05/19 10:50 Insulin Aspart (Novolog Vial Sliding Scale -) 1 vial SQ Q4H [facility]; Protocol Last Admin: 02/05/19 05:39 Dose: 2 units Montelukast Sodium (Singulair -) 10 mg PO HS [facility] Last Admin: 02/04/19 21:26 Dose: 10 mg Pantoprazole Sodium (Protonix -) 40 mg PO DAILY [facility] Last Admin: 02/04/19 09:29 Dose: 40 mg Prednisone (Deltasone -) 60 mg PO DAILY [facility] Last Admin: 02/04/19 13:00 Dose: 60 mg Sevelamer Carbonate (Renvela -) 800 mg PO TID [facility] Last Admin: 02/05/19 05:39 Dose: 800 mg Sodium Bicarbonate (Sodium Bicarbonate -) 1,950 mg PO TID [facility] Last Admin: 02/05/19 05:39 Dose: 1,950 mg Valsartan (Diovan -) 160 mg PO DAILY [facility] Vancomycin HCl (Vancomycin (Pre-Docked)) 1,000 mg IVPB DAILY [facility]; Protocol - Objective Vital Signs: Vital Signs Temperature 97.5 F L 02/05/19 05:42 Pulse Rate 73 02/05/19 05:42 Respiratory Rate 02/05/19 05:42 Blood Pressure 147/66 02/05/19 05:42 O2 Sat by Pulse Oximetry (%) 96 02/04/19 22:00 Constitutional: Yes: Calm, Mild Distress Cardiovascular: Yes: S1, S2 Respiratory: Yes: Regular, Other Gastrointestinal: Yes: Normal Bowel Sounds, Soft Musculoskeletal: Yes: WNL Extremities: Yes: WNL Neurological: Yes: Alert, Oriented Psychiatric: Yes: Alert, Oriented Labs: CBC, BMP 02/05/19 06:45 02/05/19 06:45 Assessment/Plan esrd h/o NHL in remission htn h/o cabg h/o thoracotomy copd bronchitis plan continue current mgmt dialysis await for sputum gm stain will decide after that if patient needs abx
[2019-02-05] MEDS: CALCIUM ACETATE 667 MG CAPSULE (FP) PO SCH ×3 (09:56→17:54)
--- NOTE | 2019-02-05 11:05 | CON.PULM ---
Consult Consult Specialty:: PULMONARY Referred by:: Dr Jeff Reason for Consultation:: shortness of breath - History of Present Illness Chief Complaint: shortness of breath History of Present Illness: 63yo male with h/o HTN, DM, CAD s/p CABG, COPD, lymphoma s/p RT, ESRD on HD, recurrent pleural effusions s/p VATS who was admitted with worsening shortness of breath x 1 week. Denies chest pain or palpitations. Was told that he was wheezing at his last HD session. +nonproductive cough. No fevers, chills or sweats. CT chest done showing areas of bronchiectasis. He is a never smoker. He worked mostly in a [employer] but did work in an [employer] shop x 9 years. No pets. - History Source History Provided By: Patient, Family Member, Medical Record Limitations to Obtaining History: No Limitations - Past Medical History Cardio/Vascular: Yes: CAD, CHF Pulmonary: Yes: Bronchitis, COPD Renal/: Yes: Renal Failure, Hemodialysis Endocrine: Yes: Diabetes Mellitus, Hyperparathyroidism (secondary) - Past Surgical History Past Surgical History: Yes: CABG - Alcohol/Substance Use Hx Alcohol Use: No - Smoking History Smoking history: Never smoked - Social History ADL: Independent Home Medications - Allergies Allergies/Adverse Reactions: Allergies Allergy/AdvReac Type Severity Reaction Status Date / Time No Known Allergies Allergy Verified 02/03/19 17:17 - Home Medications Home Medications: Ambulatory Orders Aspirin 81 mg PO DAILY 02/03/19 Calcium Acetate [Phoslo -] 667 mg PO TID 02/03/19 Candesartan Cilexetil [Atacand] 8 mg PO BID 02/03/19 Carvedilol 25 mg PO BID 02/03/19 Glipizide 10 mg PO BID 02/03/19 Montelukast Na [Singulair -] 10 mg PO DAILY 02/03/19 Pantoprazole Sodium 40 mg PO DAILY 02/03/19 Pravastatin Sodium [Pravachol (Nf)] 40 mg PO HS 02/03/19 Sodium Bicarbonate - 1,950 mg PO TID 02/03/19 Renvela - 800 mg PO TID 02/04/19 Review of Systems - Review of Systems Constitutional: reports: Weakness. denies: Chills, Fever Eyes: denies: Recent Change in Vision HENT: denies: Nasal Congestion, Throat Pain Neck: denies: Stiffness, Tenderness Cardiovascular: reports: Shortness of Breath. denies: Chest Pain, Palpitations Respiratory: reports: Cough, Exercise Intolerance, SOB on Exertion, Wheezing. denies: Hemoptysis Gastrointestinal: denies: Abdominal Pain, Nausea, Vomiting Genitourinary: denies: Dysuria, Hematuria Neurological: denies: Dizziness, Headache Endocrine: denies: Unexplained Weight Loss Physical Exam Vital Sings: Vital Signs Temperature 97.5 F L 02/05/19 05:42 Pulse Rate 73 02/05/19 05:42 Respiratory Rate 02/05/19 05:42 Blood Pressure 147/66 02/05/19 05:42 O2 Sat by Pulse Oximetry (%) 96 02/04/19 22:00 Constitutional: Yes: Calm Eyes: Yes: Conjunctiva Clear, EOM Intact HENT: Yes: Atraumatic, Normocephalic Neck: Yes: Supple, Trachea Midline Cardiovascular: Yes: Regular Rate and Rhythm Respiratory: Yes: Diminished (distant breath sounds), Poor Air Entry ...Clubbing: No Gastrointestinal: Yes: Normal Bowel Sounds, Soft. No: Tenderness Edema: Yes Neurological: Yes: Alert, Oriented Labs: CBC, BMP 02/05/19 06:45 02/05/19 06:45 ABG Results ABG pH 7.33 (7.35-7.45) L 02/04/19 06:50 ABG pCO2 at Pt Temp 41.2 mmHg (35-45) 02/04/19 06:50 ABG pO2 at Pt Temp 94.1 mmHg (80-100) 02/04/19 06:50 ABG HCO3 20.9 mmol/L (22-27) L 02/04/19 06:50 ABG O2 Sat (Measured) 96.2 % (95-98) 02/04/19 06:50 ABG O2 Content 17.0 % vol 02/04/19 06:50 ABG Base Excess -4.4 meq/l (-2-2) L 02/04/19 06:50 Imaging - Results Chest X-ray: Report Reviewed, Image Reviewed Cat Scan: Report Reviewed, Image Reviewed (no infiltrates, +bronchiectasis) Assessment/Plan Acute COPD Exacerbation Bronchiectasis CAD s/p CABG ESRD on HD HTN DM h/o Lymphoma - would start IV medrol - inhaled bronchodilators standing and PRN - O2 to keep SpO2 >90% - HD per renal - will need outpt PFTs and further work up of his bronchiectasis - DVT prophylaxis Thank you for this consult Javed Herrera MD
[2019-02-05] MEDS: predniSONE 20 MG TABLET (UD) PO SCH (12:51)
--- NOTE | 2019-02-05 14:10 | PN ---
Progress Note, Physician History of Present Illness: Pt seen and examined at bedside. He is tolerating HD. He feels that his breathing is improved. - Current Medication List Current Medications: Active Medications Albuterol Sulfate (Ventolin 0.042trength) -) 1 amp NEB Q4H PRN PRN Reason: SHORT OF BREATH/WHEEZING Albuterol/Ipratropium (Duoneb -) 1 amp NEB RQID [facility]NI Last Admin: 02/05/19 12:00 Dose: Not Given Aspirin (Asa -) 81 mg PO DAILY [facility] Last Admin: 02/04/19 09:29 Dose: 81 mg Atorvastatin Calcium (Lipitor -) 10 mg PO HS [facility]NI Last Admin: 02/04/19 21:26 Dose: 10 mg Calcitriol (Rocaltrol Liquid -) 0.5 mcg PO DAILY [facility] Last Admin: 02/04/19 13:00 Dose: 0.5 mcg Calcium Acetate (Phoslo -) 667 mg PO TIDCM [facility]NI Last Admin: 02/05/19 09:56 Dose: 667 mg Carvedilol (Coreg -) 25 mg PO BID [facility] Last Admin: 02/04/19 21:26 Dose: 25 mg Guaifenesin (Robitussin -) 10 ml PO Q6H PRN PRN Reason: COUGH Last Admin: 02/05/19 05:42 Dose: 10 ml Heparin Sodium (Porcine) (Heparin -) 5,000 unit SQ TID [facility] Last Admin: 02/05/19 05:39 Dose: 5,000 unit Cefepime HCl 1 gm/ Dextrose 100 mls @ 200 mls/hr IVPB DAILY [facility]; Protocol Insulin Aspart (Novolog Vial Sliding Scale -) 1 vial SQ Q4H [facility]; Protocol Last Admin: 02/05/19 12:51 Dose: Not Given Methylprednisolone Sodium Succinate (Solu-Medrol -) 40 mg IVPUSH Q8H-IV [facility] Montelukast Sodium (Singulair -) 10 mg PO HS [facility] Last Admin: 02/04/19 21:26 Dose: 10 mg Pantoprazole Sodium (Protonix -) 40 mg PO DAILY [facility] Last Admin: 02/04/19 09:29 Dose: 40 mg Sevelamer Carbonate (Renvela -) 800 mg PO TID [facility] Last Admin: 02/05/19 05:39 Dose: 800 mg Sodium Bicarbonate (Sodium Bicarbonate -) 1,950 mg PO TID [facility] Last Admin: 02/05/19 05:39 Dose: 1,950 mg Valsartan (Diovan -) 160 mg PO DAILY [facility] Vancomycin HCl (Vancomycin (Pre-Docked)) 1,000 mg IVPB DAILY [facility]; Protocol - Objective Vital Signs: Vital Signs Temperature 97.9 F 02/05/19 11:00 Pulse Rate 62 02/05/19 13:30 Respiratory Rate 18 02/05/19 13:30 Blood Pressure 135/52 L 02/05/19 13:30 O2 Sat by Pulse Oximetry (%) 96 02/05/19 09:00 Constitutional: Yes: Calm Eyes: Yes: Conjunctiva Clear HENT: Yes: Atraumatic Neck: Yes: Supple Cardiovascular: Yes: S1, S2 Respiratory: Yes: On Nasal O2, Wheezes Gastrointestinal: Yes: Normal Bowel Sounds, Soft Genitourinary: Yes: WNL Edema: Yes Edema: LLE: 1+, RLE: 1+ Neurological: Yes: Oriented Psychiatric: Yes: Oriented Labs: CBC, BMP 02/05/19 06:45 02/05/19 06:45 Assessment/Plan Current Medications Generic Name Dose Route Start Last Admin Trade Name Freq PRN Reason Stop Dose Admin Albuterol Sulfate 1 amp 02/04/19 11:57 Ventolin 0.042trength) - NEB Q4H PRN SHORT OF BREATH/WHEEZING Albuterol/Ipratropium 1 amp 02/04/19 12:00 02/05/19 12:00 Duoneb - NEB Not Given RQID ANNI Aspirin 81 mg 02/04/19 10:00 02/04/19 09:29 Asa - PO 81 mg DAILY ANNI Administration Atorvastatin Calcium 10 mg 02/04/19 22:00 02/04/19 21:26 Lipitor - PO 10 mg HS ANNI Administration Calcitriol 0.5 mcg 02/04/19 11:00 02/04/19 13:00 Rocaltrol Liquid - PO 0.5 mcg DAILY [facility]NI Administration Calcium Acetate 667 mg 02/04/19 08:00 02/05/19 09:56 Phoslo - PO 667 mg TIDCM ANNI Administration Carvedilol 25 mg 02/04/19 10:00 02/04/19 21:26 Coreg - PO 25 mg BID ANNI Administration Guaifenesin 10 ml 02/04/19 16:35 02/05/19 05:42 Robitussin - PO 10 ml Q6H PRN Administration COUGH Heparin Sodium (Porcine) 5,000 unit 02/04/19 06:00 02/05/19 05:39 Heparin - SQ 5,000 unit TID ANNI Administration Cefepime HCl 1 gm/ Dextrose 100 mls @ 200 mls/hr 02/05/19 10:00 IVPB DAILY [facility] Protocol Insulin Aspart 1 vial 02/04/19 12:00 02/05/19 12:51 Novolog Vial Sliding Scale - SQ Not Given Q4H [facility] Protocol Methylprednisolone Sodium Succinate 40 mg 02/05/19 11:45 Solu-Medrol - IVPUSH Q8H-IV [facility]NI Montelukast Sodium 10 mg 02/04/19 22:00 02/04/19 21:26 Singulair - PO 10 mg HS ANNI Administration Pantoprazole Sodium 40 mg 02/04/19 10:00 02/04/19 09:29 Protonix - PO 40 mg DAILY [facility] Administration Sevelamer Carbonate 800 mg 02/04/19 14:00 02/05/19 05:39 Renvela - PO 800 mg TID ANNI Administration Sodium Bicarbonate 1,950 mg 02/04/19 06:00 02/05/19 05:39 Sodium Bicarbonate - PO 1,950 mg TID ANNI Administration Valsartan 160 mg 02/05/19 10:00 Diovan - PO DAILY [facility] Vancomycin HCl 1,000 mg 02/05/19 10:00 Vancomycin (Pre-Docked) IVPB DAILY [facility] Protocol IMPRESSION esrd h/o NHL in remission htn h/o cabg h/o thoracotomy copd exacerbation PLAN - HD today - renal diet - ct reviewed, he should follow with pmd and pulmonary when he returns to [place] - antibiotics per primary team - increase dose of phoslo - cont caltitriol
--- NOTE | 2019-02-05 16:21 | ECHO ---
Name: EDGAR DOMINGUEZ Exam:Adult Echocardiogram Study Date: 02/05/2019 08:51 AM Age: 63 yrs Reason For Study: eval for chf Height: 66 in Weight: 200 lb BSA: 2.0 m2 MMode/2D Measurements & Calculations IVSd: 0.98 cm Ao root diam: 3.0 cm LVIDd: 5.3 cm LA dimension: 4.1 cm LVIDs: 4.1 cm LVPWd: 1.2 cm LVPWs: 1.7 cm EDV(Mickyich): 137.0 ml ESV(Teich): 74.0 ml LAV (MOD-bp): 94.0 ml Doppler Measurements & Calculations MV E max serge: 126.5 cm/sec Ao V2 max: 141.2 cm/sec MV A max serge: 59.8 cm/sec Ao max P.0 mmHg MV E/A: 2.1 Ao V2 mean: 108.3 cm/sec MV dec time: 0.17 sec Ao mean P.3 mmHg Ao V2 VTI: 35.8 cm LV V1 max P.9 mmHg MR max serge: 502.9 cm/sec LV V1 max: 99.3 cm/sec MR max P.3 mmHg TR max serge: 488.6 cm/sec PA V2 max: 91.2 cm/sec TR max P.5 mmHg PA max P.3 mmHg RVSP(TR): 105.5 mmHg Med Peak E' Serge: 6.2 cm/sec RAP systole: 10.0 mmHg Med E/e': 20.3 Lat Peak E' Serge: 10.3 cm/sec Lat E/e': 12.2 Procedure A complete two-dimensional transthoracic echocardiogram was performed (2D, M-mode, Doppler and color flow Doppler). Technically limited study. Left Ventricle The left ventricle is normal in size. Left ventricular systolic function is moderately reduced. Eject ion Fraction = 35-40%. There is moderate global hypokinesis of the left ventricle. Right Ventricle The right ventricle is not well visualized. Atria The left atrium is mildly dilated. Right atrial size is normal. Mitral Valve There is mild mitral annular calcification. There is moderate mitral regurgitation. Tricuspid Valve The tricuspid valve is normal in structure and function. No tricuspid regurgitation. Aortic Valve There is mild aortic sclerosis.;. No aortic regurgitation is present. Pulmonic Valve The pulmonic valve is not well visualized. Mild pulmonic valvular regurgitation. Great Vessels The aortic root is normal size. Pericardium/Pleura There is no pericardial effusion. Interpretation Summary The left ventricle is normal in size. Left ventricular systolic function is moderately reduced. There is moderate global hypokinesis of the left ventricle. Ejection Fraction = 35-40%. The right ventricle is not well visualized. The left atrium is mildly dilated. Right atrial size is normal. There is mild mitral annular calcification. There is moderate mitral regurgitation. There is mild aortic sclerosis. Mild pulmonic valvular regurgitation. There is no pericardial effusion. Previous study is not available for comparison Salvatore Baez MD 02/05/2019 04:21 PM
[2019-02-05] MEDS: PANTOPRAZOLE 40 MG TABLET (FP) PO SCH (16:25)
[2019-02-05] MEDS: CALCITRIOL 1 MCG/ML BOT PO SCH (16:26)
[2019-02-05] MEDS: VALSARTAN 160 MG TABLET (UD) PO SCH (16:26)
[2019-02-05] MEDS: ASPIRIN 81 MG CHEWABLE TABLETS PO SCH (16:37)
[2019-02-05] MEDS: methylPREDNISolone NA SUCC 40 MG/1 ML VIAL IVPUSH SCH ×2 (16:37→17:27)
--- NOTE | 2019-02-05 17:53 | PN ---
<Thor Guy - Last Filed: 02/05/19 17:41> Physical Exam: SUBJECTIVE: Patient seen and examined at bedside. OBJECTIVE: Vital Signs Period Temp Pulse Resp BP Sys/Dominguez Pulse Ox Last 24 Hr 97.4 F-98.2 F 61-80 18-20 123-153/47-103 96-96 Gen: NAD, AAOx3 HEENT: NCAT, EOMI Neck: supple, no jvd Cardio: rrr, normal s1s2, no mrg noted Pulm: expiratory wheezing abd: soft, nontender, nondistended Laboratory Results - last 24 hr 02/04/19 02/05/19 02/05/19 21:02 00:25 05:27 WBC RBC Hgb Hct MCV MCH MCHC RDW Plt Count MPV Absolute Neuts (auto) Neutrophils % Lymphocytes % Monocytes % Eosinophils % Basophils % Nucleated RBC % Sodium Potassium Chloride Carbon Dioxide Anion Gap BUN Creatinine Est GFR (CKD-EPI)AfAm Est GFR (CKD-EPI)NonAf POC Glucometer 460 291 207 Random Glucose Calcium Phosphorus Magnesium Total Bilirubin AST ALT Alkaline Phosphatase Total Protein Albumin 02/05/19 02/05/19 02/05/19 06:45 06:45 09:43 WBC 8.1 RBC 3.37 L Hgb 10.8 L Hct 32.0 L MCV 95.1 MCH 32.0 MCHC 33.6 RDW 14.7 Plt Count 95 L MPV 10.0 Absolute Neuts (auto) 6.9 Neutrophils % 84.7 H Lymphocytes % 10.3 Monocytes % 4.8 D Eosinophils % 0.0 D Basophils % 0.2 Nucleated RBC % 0 Sodium 134 L Potassium 5.5 H Chloride 93 L Carbon Dioxide 23 Anion Gap 18 H BUN 123.4 H* Creatinine 11.1 H* Est GFR (CKD-EPI)AfAm 5.07 Est GFR (CKD-EPI)NonAf 4.37 POC Glucometer 272 Random Glucose 222 H Calcium 7.1 L Phosphorus 6.5 H Magnesium 1.9 Total Bilirubin 0.5 AST 9 L ALT 15 Alkaline Phosphatase 162 H Total Protein 5.2 L Albumin 3.1 L 02/05/19 16:10 WBC RBC Hgb Hct MCV MCH MCHC RDW Plt Count MPV Absolute Neuts (auto) Neutrophils % Lymphocytes % Monocytes % Eosinophils % Basophils % Nucleated RBC % Sodium Potassium Chloride Carbon Dioxide Anion Gap BUN Creatinine Est GFR (CKD-EPI)AfAm Est GFR (CKD-EPI)NonAf POC Glucometer 112 Random Glucose Calcium Phosphorus Magnesium Total Bilirubin AST ALT Alkaline Phosphatase Total Protein Albumin Active Medications Generic Name Dose Route Start Last Admin Trade Name Terry PRN Reason Stop Dose Admin Albuterol Sulfate 1 amp 02/04/19 11:57 Ventolin 0.042trength) - NEB Q4H PRN SHORT OF BREATH/WHEEZING Albuterol/Ipratropium 1 amp 02/04/19 12:00 02/05/19 12:00 Duoneb - NEB Not Given RQID ANNI Aspirin 81 mg 02/04/19 10:00 02/05/19 16:37 Asa - PO Not Given DAILY ANNI Atorvastatin Calcium 10 mg 02/04/19 22:00 02/04/19 21:26 Lipitor - PO 10 mg HS ANNI Administration Calcitriol 0.5 mcg 02/04/19 11:00 02/05/19 16:26 Rocaltrol Liquid - PO 0.5 mcg DAILY ANNI Administration Calcium Acetate 1,334 mg 02/05/19 17:30 Phoslo - PO TIDCM ANNI Carvedilol 25 mg 02/04/19 10:00 02/05/19 09:00 Coreg - PO Not Given BID ANNI Guaifenesin 10 ml 02/04/19 16:35 02/05/19 05:42 Robitussin - PO 10 ml Q6H PRN Administration COUGH Heparin Sodium (Porcine) 5,000 unit 02/04/19 06:00 02/05/19 14:00 Heparin - SQ Not Given TID ANNI Cefepime HCl 1 gm/ Dextrose 100 mls @ 200 mls/hr 02/05/19 10:00 IVPB DAILY [facility] Protocol Insulin Aspart 1 vial 02/04/19 12:00 02/05/19 16:15 Novolog Vial Sliding Scale - SQ Not Given Q4H [facility] Protocol Methylprednisolone Sodium Succinate 40 mg 02/05/19 11:45 02/05/19 17:27 Solu-Medrol - IVPUSH 40 mg Q8H-IV ANNI Administration Montelukast Sodium 10 mg 02/04/19 22:00 02/04/19 21:26 Singulair - PO 10 mg HS ANNI Administration Pantoprazole Sodium 40 mg 02/04/19 10:00 02/05/19 16:25 Protonix - PO 40 mg DAILY ANNI Administration Sevelamer Carbonate 800 mg 02/04/19 14:00 02/05/19 16:28 Renvela - PO 800 mg TID ANNI Administration Sodium Bicarbonate 1,950 mg 02/04/19 06:00 02/05/19 16:25 Sodium Bicarbonate - PO 1,950 mg TID ANNI Administration Valsartan 160 mg 02/05/19 10:00 02/05/19 16:26 Diovan - PO 160 mg DAILY [facility]NI Administration Vancomycin HCl 1,000 mg 02/05/19 10:00 Vancomycin (Pre-Docked) IVPB DAILY [facility] Protocol ASSESSMENT/PLAN: Mr. Pereira is a 63 yo man with history ESRD (MWF dialysis), pleural effusion s/p VATS DM, HTN, CAD s/p CABG and stents, COPD and lymphoma (s/p radiation, now in remission) presenting with a 1 week history of worsening SOB accompanied by productive cough with white sputum. #SOB 2/2 bronchiectasis -Failed OP azithro -CXR neg -Per pulm will need medrol now, and out pt PFTs -viral panel pending -CT: L basilar thickening, b/l pulm nodularity, inflammatory change -Sputum and blood cultures pending -Weaning from O2 as tolerated. -ID on board #DM with uncontrolled hypergly -ISS -BGM -A1C 8.8 #ESRD on HD -Renal following, HD per schedule #HyperK -Mild with no EKG changes noted -getting HD #Hx HTN -controlled Visit type - Emergency Visit Emergency Visit: No - New Patient This patient is new to me today: Yes Date on this admission: 02/05/19 - Critical Care Critical Care patient: No ATTENDING PHYSICIAN STATEMENT I saw and evaluated the patient. I reviewed the resident's note and discussed the case with the resident. I agree with the resident's findings and plan as documented. SUBJECTIVE: OBJECTIVE: ASSESSMENT AND PLAN: <Db Jeff - Last Filed: 02/06/19 15:37> Physical Exam: Seen and examined; please refer to resident note for historical info/PE details. Personally verified all johnson aspects of charting. ATTENDING PHYSICIAN STATEMENT I saw and evaluated the patient. I reviewed the resident's note and discussed the case with the resident. I agree with the resident's findings and plan as documented. SUBJECTIVE: OBJECTIVE: ASSESSMENT AND PLAN:
--- NOTE | 2019-02-05 19:00 | PN ---
Teaching Attending Note Name of Resident: Thor Guy ATTENDING PHYSICIAN STATEMENT I saw and evaluated the patient. I reviewed the resident's note and discussed the case with the resident. I agree with the resident's findings and plan as documented. Seen and examined; no new complaints. More likely COPD; reviewed CV and pulm input. Not suspecting pna. VS, labs, imaging reviewed NAD, AAO, resting in bed. Cough better. O2 on. NC AT EOMI PERRLA RRR s1/2, slight murm Lungs with b/l slight rales but improved, w/ sym exp NT ND +BS Neuro unchanged, moves all 4 ext with normal sensory Consults, CT reviewed ASSESSMENT AND PLAN: -SOB likely 2/2 COPD exacerbation: Improved; continue weaning from IV steroids and nebs; deferring to pulmonary -Presumed CAP-less likely -Hx Empyema s/p VATS: Nonissue at this juncture; stable. -DM with uncontrolled hypergly: Continue current tx. -ESRD on HD: Renal following; to dialyze in AM. Discussed above -HyperK: Resolved -Hx HTN -Prolonged QTc Overall, less likely PNA. Less likely CHF. Consults reviewed. Sputum cx negative; off abx. Monitor on floor with steroids and nebs HD per nephro with fluid removal If remains stable off O2 and we elucidate DC HD (he wants to go back to [place]) can DC in next 24-48 hours
[2019-02-05] MEDS: ATORVASTATIN CA 10 MG TABLET (FP) PO SCH (21:19)
[2019-02-05] MEDS: MONTELUKAST NA 10 MG TABLET PO SCH (21:20)
[2019-02-06] MEDS: INSULIN SLIDING SCALE (NOVOLOG) 1 VIAL SQ SCH ×6 (00:49→19:50)
[2019-02-06] MEDS: MELATONIN 1 MG TABLET PO SCH ×2 (01:38→10:35)
[2019-02-06] MEDS: methylPREDNISolone NA SUCC 40 MG/1 ML VIAL IVPUSH SCH ×3 (02:44→17:46)
[2019-02-06] MEDS: SEVELAMER CARBONATE 800 MG TAB (FP) PO SCH ×3 (06:08→22:50)
[2019-02-06] MEDS: HEPARIN NA (PORCINE) 5,000 UNITS/ML 1ML VIAL SQ SCH ×3 (06:08→22:48)
[2019-02-06] MEDS: SODIUM BICARBONATE 650 MG TABLET PO SCH ×3 (06:08→22:49)
[2019-02-06] MEDS ORDERED: INSULIN (NOVOLOG) ASPART 100 UNITS/ML 10ML VIAL ONE ×2 (06:46→19:49)
[2019-02-06] MEDS: ALBUTEROL SO4 2.5/IPRATROPIUM 0.5 INH SOL 3 ML VIAL.NEB. NEB SCH ×4 (08:00→21:30)
[2019-02-06] MEDS: CALCIUM ACETATE 667 MG CAPSULE (FP) PO SCH ×3 (08:09→17:46)
[2019-02-06 08:52] LABS: BASO % 0.1 % (0-2.0); EOS % 0.1 % (0-4.5); HEMATOCRIT 35.3 % (35.4-49); HEMOGLOBIN 11.7 GM/dL (11.7-16.9); LYMPH % 8.6 % (8-40); MCH 31.7 pg (25.7-33.7); MCHC 33.2 g/dl (32.0-35.9); MEAN CELL VOLUME 95.5 fl (80-96); MEAN PLT VOLUME 9.6 fl (7.5-11.1); MONO % 2.1 % (3.8-10.2); NEUT % 89.1 % (42.8-82.8); PLATELET COUNT 99 K/MM3 (134-434); RBC 3.69 M/mm3 (4.00-5.60); RDW 14.3 % (11.9-15.9); WHITE BLOOD COUNT 6.5 K/mm3 (4.0-10.0)
[2019-02-06 09:26] LABS: ALBUMIN 3.4 g/dl (3.4-5.0); BILIRUBIN,TOTAL 0.6 mg/dL (0.2-1); BLOOD UREA NITROGEN 70.6 mg/dL (7-18); CALCIUM 7.7 mg/dL (8.5-10.1); CREATININE 6.8 mg/dL (0.55-1.3); POTASSIUM 5.1 mmol/L (3.5-5.1)
[2019-02-06] MEDS ORDERED: PT OWN MED DRAWER 7, Y5N ONE (09:50)
[2019-02-06] MEDS: CARVEDILOL 25 MG TABLET (FP) PO SCH ×2 (09:53→22:50)
[2019-02-06] MEDS: VALSARTAN 160 MG TABLET (UD) PO SCH (09:53)
[2019-02-06] MEDS: PANTOPRAZOLE 40 MG TABLET (FP) PO SCH (09:53)
[2019-02-06] MEDS: ASPIRIN 81 MG CHEWABLE TABLETS PO SCH ×2 (09:53→14:13)
[2019-02-06] MEDS: CALCITRIOL 1 MCG/ML BOT PO SCH (09:54)
--- NOTE | 2019-02-06 12:07 | PN ---
Progress Note, Physician History of Present Illness: stable no new issues - Current Medication List Current Medications: Active Medications Albuterol Sulfate (Ventolin 0.042trength) -) 1 amp NEB Q4H PRN PRN Reason: SHORT OF BREATH/WHEEZING Albuterol/Ipratropium (Duoneb -) 1 amp NEB RQID [facility] Last Admin: 02/06/19 08:00 Dose: 1 amp Aspirin (Asa -) 81 mg PO DAILY [facility] Last Admin: 02/06/19 09:53 Dose: 81 mg Atorvastatin Calcium (Lipitor -) 10 mg PO HS [facility] Last Admin: 02/05/19 21:19 Dose: 10 mg Calcitriol (Rocaltrol Liquid -) 0.5 mcg PO DAILY [facility] Last Admin: 02/06/19 09:54 Dose: 0.5 mcg Calcium Acetate (Phoslo -) 1,334 mg PO TIDCM [facility] Last Admin: 02/06/19 08:09 Dose: 1,334 mg Carvedilol (Coreg -) 25 mg PO BID [facility] Last Admin: 02/06/19 09:53 Dose: 25 mg Guaifenesin (Robitussin -) 10 ml PO Q6H PRN PRN Reason: COUGH Last Admin: 02/05/19 21:27 Dose: 10 ml Heparin Sodium (Porcine) (Heparin -) 5,000 unit SQ TID [facility] Last Admin: 02/06/19 06:08 Dose: 5,000 unit Cefepime HCl 1 gm/ Dextrose 100 mls @ 200 mls/hr IVPB DAILY [facility]; Protocol Insulin Aspart (Novolog Vial Sliding Scale -) 1 vial SQ Q4H [facility]; Protocol Last Admin: 02/06/19 08:08 Dose: 4 units Melatonin (Melatonin) 3 mg PO HS [facility] Last Admin: 02/06/19 01:38 Dose: 3 mg Methylprednisolone Sodium Succinate (Solu-Medrol -) 40 mg IVPUSH Q8H-IV [facility] Last Admin: 02/06/19 09:54 Dose: 40 mg Montelukast Sodium (Singulair -) 10 mg PO HS [facility] Last Admin: 02/05/19 21:20 Dose: 10 mg Pantoprazole Sodium (Protonix -) 40 mg PO DAILY [facility] Last Admin: 02/06/19 09:53 Dose: 40 mg Sevelamer Carbonate (Renvela -) 800 mg PO TID [facility] Last Admin: 02/06/19 06:08 Dose: 800 mg Sodium Bicarbonate (Sodium Bicarbonate -) 1,950 mg PO TID [facility] Last Admin: 02/06/19 06:08 Dose: 1,950 mg Valsartan (Diovan -) 160 mg PO DAILY [facility] Last Admin: 02/06/19 09:53 Dose: 160 mg Vancomycin HCl (Vancomycin (Pre-Docked)) 1,000 mg IVPB DAILY [facility]; Protocol - Objective Vital Signs: Vital Signs Temperature 98.3 F 02/06/19 10:13 Pulse Rate 76 02/06/19 10:13 Respiratory Rate 02/06/19 10:13 Blood Pressure 164/76 02/06/19 10:13 O2 Sat by Pulse Oximetry (%) 97 02/06/19 09:00 Constitutional: Yes: No Distress, Calm Cardiovascular: Yes: S1, S2 Respiratory: Yes: Regular, CTA Bilaterally Gastrointestinal: Yes: Normal Bowel Sounds, Soft Musculoskeletal: Yes: WNL Extremities: Yes: WNL Neurological: Yes: Alert, Oriented Psychiatric: Yes: Alert, Oriented Labs: CBC, BMP 02/06/19 08:10 02/06/19 08:10 Assessment/Plan esrd h/o NHL in remission htn h/o cabg h/o thoracotomy copd bronchitis plan continue current mgmt dialysis await for sputum gm stain will decide after that if patient needs abx
[2019-02-06] MEDS ORDERED: SODIUM CHLORIDE 250 ML IV PRN ×2 (12:50→13:03)
--- NOTE | 2019-02-06 12:50 | PN ---
Progress Note, Physician History of Present Illness: Pt seen and examined at bedside. He is awake and alert. He complains of wheezing at night. - Current Medication List Current Medications: Active Medications Albuterol Sulfate (Ventolin 0.042trength) -) 1 amp NEB Q4H PRN PRN Reason: SHORT OF BREATH/WHEEZING Albuterol/Ipratropium (Duoneb -) 1 amp NEB RQID [facility] Last Admin: 02/06/19 08:00 Dose: 1 amp Aspirin (Asa -) 81 mg PO DAILY [facility] Last Admin: 02/06/19 09:53 Dose: 81 mg Atorvastatin Calcium (Lipitor -) 10 mg PO HS [facility] Last Admin: 02/05/19 21:19 Dose: 10 mg Calcitriol (Rocaltrol Liquid -) 0.5 mcg PO DAILY [facility] Last Admin: 02/06/19 09:54 Dose: 0.5 mcg Calcium Acetate (Phoslo -) 1,334 mg PO TIDCM [facility] Last Admin: 02/06/19 12:16 Dose: 1,334 mg Carvedilol (Coreg -) 25 mg PO BID [facility] Last Admin: 02/06/19 09:53 Dose: 25 mg Guaifenesin (Robitussin -) 10 ml PO Q6H PRN PRN Reason: COUGH Last Admin: 02/05/19 21:27 Dose: 10 ml Heparin Sodium (Porcine) (Heparin -) 5,000 unit SQ TID [facility] Last Admin: 02/06/19 06:08 Dose: 5,000 unit Cefepime HCl 1 gm/ Dextrose 100 mls @ 200 mls/hr IVPB DAILY [facility]; Protocol Insulin Aspart (Novolog Vial Sliding Scale -) 1 vial SQ Q4H [facility]; Protocol Last Admin: 02/06/19 12:17 Dose: 8 units Melatonin (Melatonin) 3 mg PO HS [facility] Last Admin: 02/06/19 01:38 Dose: 3 mg Methylprednisolone Sodium Succinate (Solu-Medrol -) 40 mg IVPUSH Q8H-IV [facility] Last Admin: 02/06/19 09:54 Dose: 40 mg Montelukast Sodium (Singulair -) 10 mg PO HS [facility] Last Admin: 02/05/19 21:20 Dose: 10 mg Pantoprazole Sodium (Protonix -) 40 mg PO DAILY [facility] Last Admin: 02/06/19 09:53 Dose: 40 mg Sevelamer Carbonate (Renvela -) 800 mg PO TID [facility] Last Admin: 02/06/19 06:08 Dose: 800 mg Sodium Bicarbonate (Sodium Bicarbonate -) 1,950 mg PO TID [facility] Last Admin: 02/06/19 06:08 Dose: 1,950 mg Valsartan (Diovan -) 160 mg PO DAILY [facility] Last Admin: 02/06/19 09:53 Dose: 160 mg Vancomycin HCl (Vancomycin (Pre-Docked)) 1,000 mg IVPB DAILY [facility]; Protocol - Objective Vital Signs: Vital Signs Temperature 98.3 F 02/06/19 10:13 Pulse Rate 76 02/06/19 10:13 Respiratory Rate 02/06/19 10:13 Blood Pressure 164/76 02/06/19 10:13 O2 Sat by Pulse Oximetry (%) 97 02/06/19 09:00 Constitutional: Yes: Calm Eyes: Yes: Conjunctiva Clear HENT: Yes: Atraumatic Neck: Yes: Supple Cardiovascular: Yes: S1, S2 Respiratory: Yes: On Nasal O2, Wheezes Gastrointestinal: Yes: Soft, Abdomen, Obese Genitourinary: Yes: WNL Musculoskeletal: Yes: WNL Edema: Yes Edema: LLE: 2+, RLE: 2+ Neurological: Yes: Oriented Psychiatric: Yes: Oriented Labs: CBC, BMP 02/06/19 08:10 02/06/19 08:10 Assessment/Plan Current Medications Generic Name Dose Route Start Last Admin Trade Name Freq PRN Reason Stop Dose Admin Albuterol Sulfate 1 amp 02/04/19 11:57 Ventolin 0.042trength) - NEB Q4H PRN SHORT OF BREATH/WHEEZING Albuterol/Ipratropium 1 amp 02/04/19 12:00 02/06/19 08:00 Duoneb - NEB 1 amp RQID [facility]NI Administration Aspirin 81 mg 02/04/19 10:00 02/06/19 09:53 Asa - PO 81 mg DAILY [facility] Administration Atorvastatin Calcium 10 mg 02/04/19 22:00 02/05/19 21:19 Lipitor - PO 10 mg HS [facility] Administration Calcitriol 0.5 mcg 02/04/19 11:00 02/06/19 09:54 Rocaltrol Liquid - PO 0.5 mcg DAILY [facility] Administration Calcium Acetate 1,334 mg 02/05/19 17:30 02/06/19 12:16 Phoslo - PO 1,334 mg TIDCM [facility] Administration Carvedilol 25 mg 02/04/19 10:00 02/06/19 09:53 Coreg - PO 25 mg BID [facility] Administration Guaifenesin 10 ml 02/04/19 16:35 02/05/19 21:27 Robitussin - PO 10 ml Q6H PRN Administration COUGH Heparin Sodium (Porcine) 5,000 unit 02/04/19 06:00 02/06/19 06:08 Heparin - SQ 5,000 unit TID [facility] Administration Cefepime HCl 1 gm/ Dextrose 100 mls @ 200 mls/hr 02/05/19 10:00 IVPB DAILY [facility] Protocol Insulin Aspart 1 vial 02/04/19 12:00 02/06/19 12:17 Novolog Vial Sliding Scale - SQ 8 units Q4H [facility] Administration Protocol Melatonin 3 mg 02/06/19 01:30 02/06/19 01:38 Melatonin PO 3 mg HS [facility] Administration Methylprednisolone Sodium Succinate 40 mg 02/05/19 11:45 02/06/19 09:54 Solu-Medrol - IVPUSH 40 mg Q8H-IV [facility] Administration Montelukast Sodium 10 mg 02/04/19 22:00 02/05/19 21:20 Singulair - PO 10 mg HS [facility] Administration Pantoprazole Sodium 40 mg 02/04/19 10:00 02/06/19 09:53 Protonix - PO 40 mg DAILY [facility] Administration Sevelamer Carbonate 800 mg 02/04/19 14:00 02/06/19 06:08 Renvela - PO 800 mg TID [facility] Administration Sodium Bicarbonate 1,950 mg 02/04/19 06:00 02/06/19 06:08 Sodium Bicarbonate - PO 1,950 mg TID [facility] Administration Valsartan 160 mg 02/05/19 10:00 02/06/19 09:53 Diovan - PO 160 mg DAILY [facility] Administration Vancomycin HCl 1,000 mg 02/05/19 10:00 Vancomycin (Pre-Docked) IVPB DAILY [facility] Protocol IMPRESSION esrd h/o NHL in remission htn h/o cabg h/o thoracotomy copd exacerbation PLAN - will arrange for HD tomorrow - 4 hrs 2 k bath - will uf 3 liters - check phos level, increased phoslo dose
--- NOTE | 2019-02-06 12:58 | PN ---
Progress Note (short form) - Note Progress Note: PULMONARY States breathing slightly better. Coughing less. Vital Signs Period Temp Pulse Resp BP Sys/Dominguez Pulse Ox Last 24 Hr 98.3 F-98.6 F 61-84 18-20 123-164/47-76 97-97 Gen: NAD at rest Heart: RRR Lung: decreased air movement, scattered wheeze Abd: soft, nontender Ext: no edema CBC, BMP 02/06/19 08:10 02/06/19 08:10 Active Medications Albuterol Sulfate (Ventolin 0.042trength) -) 1 amp NEB Q4H PRN PRN Reason: SHORT OF BREATH/WHEEZING Albuterol/Ipratropium (Duoneb -) 1 amp NEB RQID [facility] Last Admin: 02/06/19 08:00 Dose: 1 amp Aspirin (Asa -) 81 mg PO DAILY [facility] Last Admin: 02/06/19 09:53 Dose: 81 mg Atorvastatin Calcium (Lipitor -) 10 mg PO HS [facility] Last Admin: 02/05/19 21:19 Dose: 10 mg Calcitriol (Rocaltrol Liquid -) 0.5 mcg PO DAILY [facility] Last Admin: 02/06/19 09:54 Dose: 0.5 mcg Calcium Acetate (Phoslo -) 1,334 mg PO TIDCM [facility] Last Admin: 02/06/19 12:16 Dose: 1,334 mg Carvedilol (Coreg -) 25 mg PO BID [facility] Last Admin: 02/06/19 09:53 Dose: 25 mg Guaifenesin (Robitussin -) 10 ml PO Q6H PRN PRN Reason: COUGH Last Admin: 02/05/19 21:27 Dose: 10 ml Heparin Sodium (Porcine) (Heparin -) 5,000 unit SQ TID [facility] Last Admin: 02/06/19 06:08 Dose: 5,000 unit Cefepime HCl 1 gm/ Dextrose 100 mls @ 200 mls/hr IVPB DAILY [facility]; Protocol Sodium Chloride (Normal Saline -) 250 mls @ 3,000 mls/hr IV PRN PRN PRN Reason: Hypotension during Dialysis Stop: 02/07/19 12:50 Insulin Aspart (Novolog Vial Sliding Scale -) 1 vial SQ Q4H [facility]; Protocol Last Admin: 02/06/19 12:17 Dose: 8 units Melatonin (Melatonin) 3 mg PO HS [facility] Last Admin: 02/06/19 01:38 Dose: 3 mg Methylprednisolone Sodium Succinate (Solu-Medrol -) 40 mg IVPUSH Q8H-IV [facility] Last Admin: 02/06/19 09:54 Dose: 40 mg Montelukast Sodium (Singulair -) 10 mg PO HS [facility] Last Admin: 02/05/19 21:20 Dose: 10 mg Pantoprazole Sodium (Protonix -) 40 mg PO DAILY [facility] Last Admin: 02/06/19 09:53 Dose: 40 mg Sevelamer Carbonate (Renvela -) 800 mg PO TID [facility] Last Admin: 02/06/19 06:08 Dose: 800 mg Sodium Bicarbonate (Sodium Bicarbonate -) 1,950 mg PO TID [facility] Last Admin: 02/06/19 06:08 Dose: 1,950 mg Valsartan (Diovan -) 160 mg PO DAILY [facility] Last Admin: 02/06/19 09:53 Dose: 160 mg Vancomycin HCl (Vancomycin (Pre-Docked)) 1,000 mg IVPB DAILY [facility]; Protocol A/P Acute COPD Exacerbation Bronchiectasis CAD s/p CABG ESRD on HD HTN DM h/o Lymphoma - continue medrol at current dose - inhaled bronchodilators standing and PRN - O2 to keep SpO2 >90% - HD per renal - will need outpt PFTs and further work up of his bronchiectasis - DVT prophylaxis
--- NOTE | 2019-02-06 15:07 | PN ---
Teaching Attending Note Name of Resident: Thor Guy ATTENDING PHYSICIAN STATEMENT I saw and evaluated the patient. I reviewed the resident's note and discussed the case with the resident. I agree with the resident's findings and plan as documented. Seen and examined; please refer to resident note for further historical information. Briefly, he has no complaints today and states he feels better. He likely had COPD exacerbation due to upper airway infection driving the process. He is stable on RA, ambulatory, and agreeable for DC. Need to arrange HD as he lives in [place] with no OP facility here. Will DW nephro. Still weaning from IV steroids so inpatient stay justifiable for weaning, HD, phoslo adjustment. If dialyzed, weaned to PO tomorrow can DC home. VS, labs, imaging reviewed NAD, AAO, resting in bed RRR s1/2 Lungs improved, w/ sym exp NT ND +BS CN2-12 wnl, no fnd Normal mood, appropriate behavior ASSESSMENT AND PLAN: Presents with COPD exacerbation likely 2/2 URI; complex pulmonary history but as of now no apparent pna, no apparent CHF. Weaning from steroids, HD and titrate phoslo per nephrology. Hopeful DC tomorrow. Barrier could be him needing HD and he lives in [place]. Problem list is: -SOB likely 2/2 COPD exacerbation: Improved; continue weaning from IV steroids and nebs; deferring to pulmonary -Presumed CAP-less likely -Hx Empyema s/p VATS: Nonissue at this juncture; stable. -DM with uncontrolled hypergly: Continue current tx. -ESRD on HD: Renal following; to dialyze in AM. Discussed above -HyperK: Resolved -Hx HTN -Prolonged QTc -
--- NOTE | 2019-02-06 18:33 | PN ---
Physical Exam: SUBJECTIVE: Patient seen and examined at bedside. No acute events. Pt feels well OBJECTIVE: Vital Signs Period Temp Pulse Resp BP Sys/Dominguez Pulse Ox Last 24 Hr 98.1 F-98.6 F 76-84 19-20 126-164/61-76 97-97 Gen: NAD, AAOx3 HEENT: NCAT, EOMI Neck: supple, no jvd Cardio: rrr, normal s1s2, no mrg noted Pulm: mild expiratory wheezing abd: soft, nontender, nondistended Laboratory Results - last 24 hr 02/05/19 02/05/19 02/05/19 11:00 11:00 21:16 WBC RBC Hgb Hct MCV MCH MCHC RDW Plt Count MPV Absolute Neuts (auto) Neutrophils % Lymphocytes % Monocytes % Eosinophils % Basophils % Nucleated RBC % Sodium Potassium Chloride Carbon Dioxide Anion Gap BUN Creatinine Est GFR (CKD-EPI)AfAm Est GFR (CKD-EPI)NonAf POC Glucometer 324 Random Glucose Calcium Total Bilirubin AST ALT Alkaline Phosphatase Total Protein Albumin Hep Bs Antigen Negative Hep C Ab Diagnostic <0.1 02/06/19 02/06/19 02/06/19 00:45 04:31 08:06 WBC RBC Hgb Hct MCV MCH MCHC RDW Plt Count MPV Absolute Neuts (auto) Neutrophils % Lymphocytes % Monocytes % Eosinophils % Basophils % Nucleated RBC % Sodium Potassium Chloride Carbon Dioxide Anion Gap BUN Creatinine Est GFR (CKD-EPI)AfAm Est GFR (CKD-EPI)NonAf POC Glucometer 317 276 265 Random Glucose Calcium Total Bilirubin AST ALT Alkaline Phosphatase Total Protein Albumin Hep Bs Antigen Hep C Ab Diagnostic 02/06/19 02/06/19 02/06/19 08:10 08:10 12:15 WBC 6.5 RBC 3.69 L Hgb 11.7 Hct 35.3 L MCV 95.5 MCH 31.7 MCHC 33.2 RDW 14.3 Plt Count 99 L MPV 9.6 Absolute Neuts (auto) 5.8 Neutrophils % 89.1 H Lymphocytes % 8.6 Monocytes % 2.1 L Eosinophils % 0.1 D Basophils % 0.1 Nucleated RBC % 0 Sodium 139 Potassium 5.1 Chloride 95 L Carbon Dioxide 31 Anion Gap 13 BUN 70.6 H Creatinine 6.8 H Est GFR (CKD-EPI)AfAm 9.17 Est GFR (CKD-EPI)NonAf 7.91 POC Glucometer 374 Random Glucose 296 H Calcium 7.7 L Total Bilirubin 0.6 AST 14 L ALT 18 Alkaline Phosphatase 179 H Total Protein 6.0 L Albumin 3.4 Hep Bs Antigen Hep C Ab Diagnostic 02/06/19 17:44 WBC RBC Hgb Hct MCV MCH MCHC RDW Plt Count MPV Absolute Neuts (auto) Neutrophils % Lymphocytes % Monocytes % Eosinophils % Basophils % Nucleated RBC % Sodium Potassium Chloride Carbon Dioxide Anion Gap BUN Creatinine Est GFR (CKD-EPI)AfAm Est GFR (CKD-EPI)NonAf POC Glucometer 419 Random Glucose Calcium Total Bilirubin AST ALT Alkaline Phosphatase Total Protein Albumin Hep Bs Antigen Hep C Ab Diagnostic Active Medications Generic Name Dose Route Start Last Admin Trade Name Freq PRN Reason Stop Dose Admin Albuterol Sulfate 1 amp 02/04/19 11:57 Ventolin 0.042trength) - NEB Q4H PRN SHORT OF BREATH/WHEEZING Albuterol/Ipratropium 1 amp 02/04/19 12:00 02/06/19 17:06 Duoneb - NEB 1 amp RQID ANNI Administration Aspirin 81 mg 02/04/19 10:00 02/06/19 14:13 Asa - PO Not Given DAILY [facility] Atorvastatin Calcium 10 mg 02/04/19 22:00 02/05/19 21:19 Lipitor - PO 10 mg HS [facility] Administration Calcitriol 0.5 mcg 02/04/19 11:00 02/06/19 09:54 Rocaltrol Liquid - PO 0.5 mcg DAILY [facility] Administration Calcium Acetate 1,334 mg 02/05/19 17:30 02/06/19 17:46 Phoslo - PO 1,334 mg TIDCM [facility] Administration Carvedilol 25 mg 02/04/19 10:00 02/06/19 09:53 Coreg - PO 25 mg BID [facility] Administration Guaifenesin 10 ml 02/04/19 16:35 02/05/19 21:27 Robitussin - PO 10 ml Q6H PRN Administration COUGH Heparin Sodium (Porcine) 5,000 unit 02/04/19 06:00 02/06/19 14:25 Heparin - SQ 5,000 unit TID [facility] Administration Cefepime HCl 1 gm/ Dextrose 100 mls @ 200 mls/hr 02/05/19 10:00 IVPB DAILY [facility] Protocol Sodium Chloride 250 mls @ 3,000 mls/hr 02/06/19 13:03 Normal Saline - IV PRN PRN Hypotension during Dialysis Insulin Aspart 1 vial 02/04/19 12:00 02/06/19 17:45 Novolog Vial Sliding Scale - SQ 10 units Q4H [facility] Administration Protocol Melatonin 3 mg 02/06/19 01:30 02/06/19 01:38 Melatonin PO 3 mg HS [facility] Administration Methylprednisolone Sodium Succinate 40 mg 02/05/19 11:45 02/06/19 17:46 Solu-Medrol - IVPUSH 40 mg Q8H-IV [facility] Administration Montelukast Sodium 10 mg 02/04/19 22:00 02/05/19 21:20 Singulair - PO 10 mg HS [facility] Administration Pantoprazole Sodium 40 mg 02/04/19 10:00 02/06/19 09:53 Protonix - PO 40 mg DAILY [facility] Administration Sevelamer Carbonate 800 mg 02/04/19 14:00 02/06/19 14:26 Renvela - PO 800 mg TID [facility] Administration Sodium Bicarbonate 1,950 mg 02/04/19 06:00 02/06/19 14:23 Sodium Bicarbonate - PO 1,950 mg TID [facility] Administration Valsartan 160 mg 02/05/19 10:00 02/06/19 09:53 Diovan - PO 160 mg DAILY [facility] Administration Vancomycin HCl 1,000 mg 02/05/19 10:00 Vancomycin (Pre-Docked) IVPB DAILY [facility] Protocol ASSESSMENT/PLAN: Mr. Pereira is a 63 yo man with history ESRD (MWF dialysis), pleural effusion s/p VATS DM, HTN, CAD s/p CABG and stents, COPD and lymphoma (s/p radiation, now in remission) presenting with a 1 week history of worsening SOB accompanied by productive cough with white sputum. #SOB 2/2 bronchiectasis -Failed OP azithro -CXR neg -Pulm on board. C/w steroids -viral panel pending -CT: L basilar thickening, b/l pulm nodularity, inflammatory change -Sputum and blood cultures pending -Weaning from O2 as tolerated. -ID on board #DM with uncontrolled hypergly -ISS -BGM -A1C 8.8 #ESRD on HD -Renal following, HD per schedule #HyperK -Mild with no EKG changes noted -getting HD #Hx HTN -controlled Visit type - Emergency Visit Emergency Visit: No - New Patient This patient is new to me today: No - Critical Care Critical Care patient: No ATTENDING PHYSICIAN STATEMENT I saw and evaluated the patient. I reviewed the resident's note and discussed the case with the resident. I agree with the resident's findings and plan as documented. SUBJECTIVE: OBJECTIVE: ASSESSMENT AND PLAN:
[2019-02-06] MEDS ORDERED: INSULIN (NOVOLOG) ASPART 100 UNITS/ML 10ML VIAL SQ ONE (18:42)
[2019-02-06] MEDS ORDERED: INSULIN (LEVEMIR) 100 UNITS/ML UNITS SQ SCH (22:00)
[2019-02-06] MEDS: ATORVASTATIN CA 10 MG TABLET (FP) PO SCH (22:49)
[2019-02-06] MEDS: guaiFENesin 200 MG/10 ML 10 ML UNIT-DOSE CUPS PO PRN (22:49)
[2019-02-06] MEDS: MONTELUKAST NA 10 MG TABLET PO SCH (22:49)
[2019-02-07] MEDS: INSULIN SLIDING SCALE (NOVOLOG) 1 VIAL SQ SCH ×6 (00:11→21:44)
[2019-02-07] MEDS: methylPREDNISolone NA SUCC 40 MG/1 ML VIAL IVPUSH SCH ×2 (01:51→15:53)
[2019-02-07] MEDS: SODIUM BICARBONATE 650 MG TABLET PO SCH ×3 (06:04→21:13)
[2019-02-07] MEDS: HEPARIN NA (PORCINE) 5,000 UNITS/ML 1ML VIAL SQ SCH ×3 (06:04→22:19)
[2019-02-07] MEDS: SEVELAMER CARBONATE 800 MG TAB (FP) PO SCH ×3 (06:04→21:13)
[2019-02-07] MEDS: ALBUTEROL SO4 2.5/IPRATROPIUM 0.5 INH SOL 3 ML VIAL.NEB. NEB SCH ×4 (07:48→21:11)
--- NOTE | 2019-02-07 10:36 | PN ---
Teaching Attending Note Name of Resident: Thor Guy ATTENDING PHYSICIAN STATEMENT I saw and evaluated the patient. I reviewed the resident's note and discussed the case with the resident. I agree with the resident's findings and plan as documented with exceptions below. SUBJECTIVE: Patient seen and examined. OBJECTIVE: Vital Signs Period Temp Pulse Resp BP Sys/Dominguez Pulse Ox Last 24 Hr 97.6 F-98.2 F 40-84 18-20 110-156/70-80 99 Intake & Output 02/04/19 02/05/19 02/06/19 02/07/19 23:59 23:59 23:59 23:59 Intake Total 900 1870 1730 1040 Output Total 3700 Balance 900 -1830 1730 1040 Weight 200 lb 7 oz 202 lb 201 lb 4 oz 201 lb 3 oz Home Medications Medication Instructions Recorded Aspirin 81 mg PO DAILY 02/03/19 Calcium Acetate [Phoslo -] 667 mg PO TID 02/03/19 Candesartan Cilexetil [Atacand] 8 mg PO BID 02/03/19 Carvedilol 25 mg PO BID 02/03/19 Glipizide 10 mg PO BID 02/03/19 Montelukast Na [Singulair -] 10 mg PO DAILY 02/03/19 Pantoprazole Sodium 40 mg PO DAILY 02/03/19 Pravastatin Sodium [Pravachol (Nf)] 40 mg PO HS 02/03/19 Sodium Bicarbonate - 1,950 mg PO TID 02/03/19 Renvela - 800 mg PO TID 02/04/19 Active Medications Albuterol Sulfate (Ventolin 0.042trength) -) 1 amp NEB Q4H PRN PRN Reason: SHORT OF BREATH/WHEEZING Albuterol/Ipratropium (Duoneb -) 1 amp NEB RQID [facility] Last Admin: 02/07/19 07:48 Dose: 1 amp Aspirin (Asa -) 81 mg PO DAILY [facility] Last Admin: 02/06/19 14:13 Dose: Not Given Atorvastatin Calcium (Lipitor -) 10 mg PO HS [facility] Last Admin: 02/06/19 22:49 Dose: 10 mg Calcitriol (Rocaltrol Liquid -) 0.5 mcg PO DAILY [facility] Last Admin: 02/06/19 09:54 Dose: 0.5 mcg Calcium Acetate (Phoslo -) 1,334 mg PO TIDCM [facility] Last Admin: 02/06/19 17:46 Dose: 1,334 mg Carvedilol (Coreg -) 25 mg PO BID [facility] Last Admin: 02/06/19 22:50 Dose: 25 mg Guaifenesin (Robitussin -) 10 ml PO Q6H PRN PRN Reason: COUGH Last Admin: 02/06/19 22:49 Dose: 10 ml Heparin Sodium (Porcine) (Heparin -) 5,000 unit SQ TID [facility] Last Admin: 02/07/19 06:04 Dose: 5,000 unit Cefepime HCl 1 gm/ Dextrose 100 mls @ 200 mls/hr IVPB DAILY [facility]; Protocol Sodium Chloride (Normal Saline -) 250 mls @ 3,000 mls/hr IV PRN PRN PRN Reason: Hypotension during Dialysis Insulin Aspart (Novolog Vial Sliding Scale -) 1 vial SQ Q4H [facility]; Protocol Last Admin: 02/07/19 03:35 Dose: 2 units Insulin Detemir (Levemir Vial) 10 units SQ HS [facility] Last Admin: 02/06/19 22:50 Dose: 10 units Melatonin (Melatonin) 3 mg PO HS [facility] Last Admin: 02/06/19 10:35 Dose: 3 mg Methylprednisolone Sodium Succinate (Solu-Medrol -) 40 mg IVPUSH Q8H-IV [facility] Last Admin: 02/07/19 01:51 Dose: 40 mg Montelukast Sodium (Singulair -) 10 mg PO HS [facility] Last Admin: 02/06/19 22:49 Dose: 10 mg Pantoprazole Sodium (Protonix -) 40 mg PO DAILY [facility] Last Admin: 02/06/19 09:53 Dose: 40 mg Sevelamer Carbonate (Renvela -) 800 mg PO TID [facility] Last Admin: 02/07/19 06:04 Dose: 800 mg Sodium Bicarbonate (Sodium Bicarbonate -) 1,950 mg PO TID [facility] Last Admin: 02/07/19 06:04 Dose: 1,950 mg Valsartan (Diovan -) 160 mg PO DAILY [facility] Last Admin: 02/06/19 09:53 Dose: 160 mg Vancomycin HCl (Vancomycin (Pre-Docked)) 1,000 mg IVPB DAILY [facility]; Protocol Laboratory Results - last 24 hr 02/06/19 02/06/19 02/06/19 12:15 17:44 18:37 POC Glucometer 374 419 447 Random Glucose Group A Strep Rapid 02/06/19 02/06/19 02/07/19 19:36 21:00 00:09 POC Glucometer 413 220 Random Glucose 313 H Group A Strep Rapid 02/07/19 02/07/19 03:33 03:50 POC Glucometer 228 Random Glucose Group A Strep Rapid Negative ASSESSMENT AND PLAN:
--- NOTE | 2019-02-07 10:51 | PN ---
Teaching Attending Note Name of Resident: Thor Guy ATTENDING PHYSICIAN STATEMENT I saw and evaluated the patient. I reviewed the resident's note and discussed the case with the resident. I agree with the resident's findings and plan as documented with exceptions below. SUBJECTIVE: patient seen and examined. breathing/wheezing improved. Still reports cough paroxysms, with associated wheezing, otherwise feels well. OBJECTIVE: Vital Signs Period Temp Pulse Resp BP Sys/Dominguez Pulse Ox Last 24 Hr 97.6 F-98.2 F 40-84 18-20 110-156/70-80 99 Intake & Output 02/04/19 02/05/19 02/06/19 02/07/19 23:59 23:59 23:59 23:59 Intake Total 900 1870 1730 1040 Output Total 3700 Balance 900 -1830 1730 1040 Weight 200 lb 7 oz 202 lb 201 lb 4 oz 201 lb 3 oz general: lying in bed in no acute distress neck: soft, supple, no JVD Chest: good air entry, no rales or wheezing appreciated currently(getting HD) Abdomen;Soft, obese, NT Extremities: no edema Home Medications Medication Instructions Recorded Aspirin 81 mg PO DAILY 02/03/19 Calcium Acetate [Phoslo -] 667 mg PO TID 02/03/19 Candesartan Cilexetil [Atacand] 8 mg PO BID 02/03/19 Carvedilol 25 mg PO BID 02/03/19 Glipizide 10 mg PO BID 02/03/19 Montelukast Na [Singulair -] 10 mg PO DAILY 02/03/19 Pantoprazole Sodium 40 mg PO DAILY 02/03/19 Pravastatin Sodium [Pravachol (Nf)] 40 mg PO HS 02/03/19 Sodium Bicarbonate - 1,950 mg PO TID 02/03/19 Renvela - 800 mg PO TID 02/04/19 Active Medications Albuterol Sulfate (Ventolin 0.042trength) -) 1 amp NEB Q4H PRN PRN Reason: SHORT OF BREATH/WHEEZING Albuterol/Ipratropium (Duoneb -) 1 amp NEB RQID [facility] Last Admin: 02/07/19 07:48 Dose: 1 amp Aspirin (Asa -) 81 mg PO DAILY [facility] Last Admin: 02/06/19 14:13 Dose: Not Given Atorvastatin Calcium (Lipitor -) 10 mg PO [facility] Last Admin: 02/06/19 22:49 Dose: 10 mg Calcitriol (Rocaltrol Liquid -) 0.5 mcg PO DAILY [facility] Last Admin: 02/06/19 09:54 Dose: 0.5 mcg Calcium Acetate (Phoslo -) 1,334 mg PO TIDCM [facility] Last Admin: 02/06/19 17:46 Dose: 1,334 mg Carvedilol (Coreg -) 25 mg PO BID [facility] Last Admin: 02/06/19 22:50 Dose: 25 mg Glipizide (Glucotrol -) 10 mg PO BID@0700,1630 [facility] Guaifenesin (Robitussin -) 10 ml PO Q6H PRN PRN Reason: COUGH Last Admin: 02/06/19 22:49 Dose: 10 ml Heparin Sodium (Porcine) (Heparin -) 5,000 unit SQ TID [facility] Last Admin: 02/07/19 06:04 Dose: 5,000 unit Cefepime HCl 1 gm/ Dextrose 100 mls @ 200 mls/hr IVPB DAILY [facility]; Protocol Sodium Chloride (Normal Saline -) 250 mls @ 3,000 mls/hr IV PRN PRN PRN Reason: Hypotension during Dialysis Insulin Aspart (Novolog Vial Sliding Scale -) 1 vial SQ Q4H [facility]; Protocol Last Admin: 02/07/19 03:35 Dose: 2 units Insulin Detemir (Levemir Vial) 5 units SQ HS [facility] Melatonin (Melatonin) 3 mg PO [facility] Last Admin: 02/06/19 10:35 Dose: 3 mg Methylprednisolone Sodium Succinate (Solu-Medrol -) 40 mg IVPUSH Q12H [facility] Montelukast Sodium (Singulair -) 10 mg PO HS [facility] Last Admin: 02/06/19 22:49 Dose: 10 mg Pantoprazole Sodium (Protonix -) 40 mg PO DAILY [facility] Last Admin: 02/06/19 09:53 Dose: 40 mg Sevelamer Carbonate (Renvela -) 800 mg PO TID [facility] Last Admin: 02/07/19 06:04 Dose: 800 mg Sodium Bicarbonate (Sodium Bicarbonate -) 1,950 mg PO TID [facility] Last Admin: 02/07/19 06:04 Dose: 1,950 mg Valsartan (Diovan -) 160 mg PO DAILY [facility] Last Admin: 02/06/19 09:53 Dose: 160 mg Vancomycin HCl (Vancomycin (Pre-Docked)) 1,000 mg IVPB DAILY [facility]; Protocol ASSESSMENT AND PLAN: 63 yom with PMhx of ESRD on HD (MWF), Pleural effusion s/p VATS, NIDDM, HTN, CAD s/p CABG/PCI, COPD, lymphoma (s/p radiation, now in remission), admitted with dyspnea and productive cough with white sputum. -Acute exacerbation of COPD/bronchiectasis -Suspected URI like illness -Poorly controlled NIDDM with superimposed steroid induced hyperglycemia -ESRD on HD -Hyperphosphatemia -Hyperkalemia -HTN Plan: Afebrile, normal WBc. Doing well off abx( none received > 24 hours). Sputum cx with normal respi rose, blood cx neg. Monitor off abx. taper steroids. Pulmonary input noted. CT chest reviewed. transition to PO In AM. Ambulatory oxygen needs assessment. Standing and prn nebs. Renal input noted. Phoslo increased Continue calcitriol/Renvela. A1c 8.8 Current uncontrolled blood sugars partly contributed by steroids, patient lives [facility]. Will resume glipizide and taper levemir. Steroids being tapered. Will avoid starting insulin inhouse, given traveling and risk of unmonitored hypoglycemia. Patient informed of need for home BGM monitoring and close follow up with PCP on return. Renal input noted, plan for patient to return to hospital for HD with Dr. Goodman till his travel back scheduled next Tuesday. Patient aware of the same. Dispo plan for dc in 24 hours on po steroids if respiratory status stable, no new concerns and has appropriate follow up for outpatient HD.
--- NOTE | 2019-02-07 11:53 | PN ---
Progress Note, Physician History of Present Illness: stable no new issues - Current Medication List Current Medications: Active Medications Albuterol Sulfate (Ventolin 0.042trength) -) 1 amp NEB Q4H PRN PRN Reason: SHORT OF BREATH/WHEEZING Albuterol/Ipratropium (Duoneb -) 1 amp NEB RQID [facility] Last Admin: 02/07/19 07:48 Dose: 1 amp Aspirin (Asa -) 81 mg PO DAILY [facility] Last Admin: 02/06/19 14:13 Dose: Not Given Atorvastatin Calcium (Lipitor -) 10 mg PO HS [facility] Last Admin: 02/06/19 22:49 Dose: 10 mg Calcitriol (Rocaltrol Liquid -) 0.5 mcg PO DAILY [facility] Last Admin: 02/06/19 09:54 Dose: 0.5 mcg Calcium Acetate (Phoslo -) 1,334 mg PO TIDCM [facility] Last Admin: 02/06/19 17:46 Dose: 1,334 mg Carvedilol (Coreg -) 25 mg PO BID [facility] Last Admin: 02/06/19 22:50 Dose: 25 mg Glipizide (Glucotrol -) 10 mg PO BID@0700,1630 [facility] Guaifenesin (Robitussin -) 10 ml PO Q6H PRN PRN Reason: COUGH Last Admin: 02/06/19 22:49 Dose: 10 ml Heparin Sodium (Porcine) (Heparin -) 5,000 unit SQ TID [facility] Last Admin: 02/07/19 06:04 Dose: 5,000 unit Sodium Chloride (Normal Saline -) 250 mls @ 3,000 mls/hr IV PRN PRN PRN Reason: Hypotension during Dialysis Insulin Aspart (Novolog Vial Sliding Scale -) 1 vial SQ Q4H [facility]; Protocol Last Admin: 02/07/19 03:35 Dose: 2 units Insulin Detemir (Levemir Vial) 5 units SQ HS [facility] Melatonin (Melatonin) 3 mg PO [facility] Last Admin: 02/06/19 10:35 Dose: 3 mg Methylprednisolone Sodium Succinate (Solu-Medrol -) 40 mg IVPUSH BID [facility] Montelukast Sodium (Singulair -) 10 mg PO [facility] Last Admin: 02/06/19 22:49 Dose: 10 mg Pantoprazole Sodium (Protonix -) 40 mg PO DAILY [facility] Last Admin: 02/06/19 09:53 Dose: 40 mg Sevelamer Carbonate (Renvela -) 800 mg PO TID [facility] Last Admin: 02/07/19 06:04 Dose: 800 mg Sodium Bicarbonate (Sodium Bicarbonate -) 1,950 mg PO TID [facility] Last Admin: 02/07/19 06:04 Dose: 1,950 mg Valsartan (Diovan -) 160 mg PO DAILY [facility] Last Admin: 02/06/19 09:53 Dose: 160 mg - Objective Vital Signs: Vital Signs Temperature 97.6 F 02/07/19 09:30 Pulse Rate 71 02/07/19 11:35 Respiratory Rate 18 02/07/19 11:35 Blood Pressure 154/65 02/07/19 11:35 O2 Sat by Pulse Oximetry (%) 99 02/06/19 21:00 Constitutional: Yes: No Distress, Calm Cardiovascular: Yes: S1, S2 Respiratory: Yes: Regular, CTA Bilaterally Gastrointestinal: Yes: Normal Bowel Sounds, Soft Musculoskeletal: Yes: WNL Extremities: Yes: WNL Psychiatric: Yes: Alert, Oriented Labs: CBC, BMP 02/06/19 08:10 02/06/19 21:00 Assessment/Plan esrd h/o NHL in remission htn h/o cabg h/o thoracotomy copd bronchitis plan continue current mgmt dialysis
--- NOTE | 2019-02-07 13:17 | PN ---
Progress Note, Physician History of Present Illness: Pt seen and examined at bedside. He is awake and alert. He feels that his breathing is improved. - Current Medication List Current Medications: Active Medications Albuterol Sulfate (Ventolin 0.042trength) -) 1 amp NEB Q4H PRN PRN Reason: SHORT OF BREATH/WHEEZING Albuterol/Ipratropium (Duoneb -) 1 amp NEB RQID [facility] Last Admin: 02/07/19 12:21 Dose: Not Given Aspirin (Asa -) 81 mg PO DAILY [facility] Last Admin: 02/06/19 14:13 Dose: Not Given Atorvastatin Calcium (Lipitor -) 10 mg PO HS [facility] Last Admin: 02/06/19 22:49 Dose: 10 mg Calcitriol (Rocaltrol Liquid -) 0.5 mcg PO DAILY [facility] Last Admin: 02/06/19 09:54 Dose: 0.5 mcg Calcium Acetate (Phoslo -) 1,334 mg PO TIDCM [facility] Last Admin: 02/06/19 17:46 Dose: 1,334 mg Carvedilol (Coreg -) 25 mg PO BID [facility] Last Admin: 02/06/19 22:50 Dose: 25 mg Glipizide (Glucotrol -) 10 mg PO BID@0700,1630 [facility] Guaifenesin (Robitussin -) 10 ml PO Q6H PRN PRN Reason: COUGH Last Admin: 02/06/19 22:49 Dose: 10 ml Heparin Sodium (Porcine) (Heparin -) 5,000 unit SQ TID [facility] Last Admin: 02/07/19 06:04 Dose: 5,000 unit Sodium Chloride (Normal Saline -) 250 mls @ 3,000 mls/hr IV PRN PRN PRN Reason: Hypotension during Dialysis Insulin Aspart (Novolog Vial Sliding Scale -) 1 vial SQ Q4H [facility]; Protocol Last Admin: 02/07/19 03:35 Dose: 2 units Insulin Detemir (Levemir Vial) 5 units SQ [facility] Melatonin (Melatonin) 3 mg PO [facility] Last Admin: 02/06/19 10:35 Dose: 3 mg Methylprednisolone Sodium Succinate (Solu-Medrol -) 40 mg IVPUSH BID [facility] Montelukast Sodium (Singulair -) 10 mg PO [facility] Last Admin: 02/06/19 22:49 Dose: 10 mg Pantoprazole Sodium (Protonix -) 40 mg PO DAILY [facility] Last Admin: 02/06/19 09:53 Dose: 40 mg Sevelamer Carbonate (Renvela -) 800 mg PO TID [facility] Last Admin: 02/07/19 06:04 Dose: 800 mg Sodium Bicarbonate (Sodium Bicarbonate -) 1,950 mg PO TID [facility] Last Admin: 02/07/19 06:04 Dose: 1,950 mg Valsartan (Diovan -) 160 mg PO DAILY [facility] Last Admin: 02/06/19 09:53 Dose: 160 mg - Objective Vital Signs: Vital Signs Temperature 97.6 F 02/07/19 09:30 Pulse Rate 74 02/07/19 13:05 Respiratory Rate 18 02/07/19 13:05 Blood Pressure 164/71 02/07/19 13:05 O2 Sat by Pulse Oximetry (%) 99 02/06/19 21:00 Constitutional: Yes: Calm Eyes: Yes: Conjunctiva Clear Cardiovascular: Yes: S1, S2 Respiratory: Yes: On Nasal O2, Wheezes Gastrointestinal: Yes: Soft Genitourinary: Yes: WNL Musculoskeletal: Yes: WNL Edema: Yes Edema: LLE: 1+, RLE: 1+ Neurological: Yes: Oriented Psychiatric: Yes: Oriented Labs: CBC, BMP 02/06/19 08:10 02/06/19 21:00 Assessment/Plan Current Medications Generic Name Dose Route Start Last Admin Trade Name Freq PRN Reason Stop Dose Admin Albuterol Sulfate 1 amp 02/04/19 11:57 Ventolin 0.042trength) - NEB Q4H PRN SHORT OF BREATH/WHEEZING Albuterol/Ipratropium 1 amp 02/04/19 12:00 02/07/19 12:21 Duoneb - NEB Not Given RQID [facility] Aspirin 81 mg 02/04/19 10:00 02/06/19 14:13 Asa - PO Not Given DAILY [facility] Atorvastatin Calcium 10 mg 02/04/19 22:00 02/06/19 22:49 Lipitor - PO 10 mg HS [facility] Administration Calcitriol 0.5 mcg 02/04/19 11:00 02/06/19 09:54 Rocaltrol Liquid - PO 0.5 mcg DAILY [facility] Administration Calcium Acetate 1,334 mg 02/05/19 17:30 02/06/19 17:46 Phoslo - PO 1,334 mg TIDCM [facility] Administration Carvedilol 25 mg 02/04/19 10:00 02/06/19 22:50 Coreg - PO 25 mg BID [facility] Administration Glipizide 10 mg 02/07/19 16:30 Glucotrol - PO BID@0700,1630 [facility] Guaifenesin 10 ml 02/04/19 16:35 02/06/19 22:49 Robitussin - PO 10 ml Q6H PRN Administration COUGH Heparin Sodium (Porcine) 5,000 unit 02/04/19 06:00 02/07/19 06:04 Heparin - SQ 5,000 unit TID [facility] Administration Sodium Chloride 250 mls @ 3,000 mls/hr 02/06/19 13:03 Normal Saline - IV PRN PRN Hypotension during Dialysis Insulin Aspart 1 vial 02/04/19 12:00 02/07/19 03:35 Novolog Vial Sliding Scale - SQ 2 units Q4H [facility] Administration Protocol Insulin Detemir 5 units 02/07/19 22:00 Levemir Vial SQ HS [facility] Melatonin 3 mg 02/06/19 01:30 02/06/19 10:35 Melatonin PO 3 mg HS [facility] Administration Methylprednisolone Sodium Succinate 40 mg 02/07/19 20:00 Solu-Medrol - IVPUSH BID [facility] Montelukast Sodium 10 mg 02/04/19 22:00 02/06/19 22:49 Singulair - PO 10 mg HS [facility] Administration Pantoprazole Sodium 40 mg 02/04/19 10:00 02/06/19 09:53 Protonix - PO 40 mg DAILY [facility] Administration Sevelamer Carbonate 800 mg 02/04/19 14:00 02/07/19 06:04 Renvela - PO 800 mg TID [facility] Administration Sodium Bicarbonate 1,950 mg 02/04/19 06:00 02/07/19 06:04 Sodium Bicarbonate - PO 1,950 mg TID [facility] Administration Valsartan 160 mg 02/05/19 10:00 02/06/19 09:53 Diovan - PO 160 mg DAILY [facility] Administration IMPRESSION esrd h/o NHL in remission htn h/o cabg h/o thoracotomy copd exacerbation PLAN - HD today - pt is here on vacation from [place]. He does not have a transient unit set up as outpt. He says he is going back to [place] next week on Tuesday - He will need to return to the hospital for HD on Tuesday if he goes home today - he is aware - renal diet
--- NOTE | 2019-02-07 13:54 | PN ---
Progress Note (short form) - Note Progress Note: PULMONARY States breathing continues to slowly improving. Coughing less. Vital Signs Period Temp Pulse Resp BP Sys/Dominguez Pulse Ox Last 24 Hr 97.6 F-98.2 F 40-85 18-20 110-164/64-80 99 Gen: NAD at rest Heart: RRR Lung: decreased air movement, scattered wheeze Abd: soft, nontender Ext: no edema CBC, BMP 02/06/19 08:10 02/06/19 21:00 Active Medications Albuterol Sulfate (Ventolin 0.042trength) -) 1 amp NEB Q4H PRN PRN Reason: SHORT OF BREATH/WHEEZING Albuterol/Ipratropium (Duoneb -) 1 amp NEB RQID [facility] Last Admin: 02/07/19 12:21 Dose: Not Given Aspirin (Asa -) 81 mg PO DAILY [facility] Last Admin: 02/06/19 14:13 Dose: Not Given Atorvastatin Calcium (Lipitor -) 10 mg PO HS [facility] Last Admin: 02/06/19 22:49 Dose: 10 mg Calcitriol (Rocaltrol Liquid -) 0.5 mcg PO DAILY [facility] Last Admin: 02/06/19 09:54 Dose: 0.5 mcg Calcium Acetate (Phoslo -) 1,334 mg PO TIDCM [facility] Last Admin: 02/06/19 17:46 Dose: 1,334 mg Carvedilol (Coreg -) 25 mg PO BID [facility] Last Admin: 02/06/19 22:50 Dose: 25 mg Glipizide (Glucotrol -) 10 mg PO BID@0700,1630 [facility] Guaifenesin (Robitussin -) 10 ml PO Q6H PRN PRN Reason: COUGH Last Admin: 02/06/19 22:49 Dose: 10 ml Heparin Sodium (Porcine) (Heparin -) 5,000 unit SQ TID [facility] Last Admin: 02/07/19 06:04 Dose: 5,000 unit Sodium Chloride (Normal Saline -) 250 mls @ 3,000 mls/hr IV PRN PRN PRN Reason: Hypotension during Dialysis Insulin Aspart (Novolog Vial Sliding Scale -) 1 vial SQ Q4H [facility]; Protocol Last Admin: 02/07/19 03:35 Dose: 2 units Insulin Detemir (Levemir Vial) 5 units SQ [facility] Melatonin (Melatonin) 3 mg PO HS [facility] Last Admin: 02/06/19 10:35 Dose: 3 mg Methylprednisolone Sodium Succinate (Solu-Medrol -) 40 mg IVPUSH BID [facility] Montelukast Sodium (Singulair -) 10 mg PO HS [facility] Last Admin: 02/06/19 22:49 Dose: 10 mg Pantoprazole Sodium (Protonix -) 40 mg PO DAILY [facility] Last Admin: 02/06/19 09:53 Dose: 40 mg Sevelamer Carbonate (Renvela -) 800 mg PO TID [facility] Last Admin: 02/07/19 06:04 Dose: 800 mg Sodium Bicarbonate (Sodium Bicarbonate -) 1,950 mg PO TID [facility] Last Admin: 02/07/19 06:04 Dose: 1,950 mg Valsartan (Diovan -) 160 mg PO DAILY [facility] Last Admin: 02/06/19 09:53 Dose: 160 mg A/P Acute COPD Exacerbation Bronchiectasis CAD s/p CABG ESRD on HD HTN DM h/o Lymphoma - agree with medrol taper - inhaled bronchodilators standing and PRN - O2 to keep SpO2 >90% - HD per renal - will need outpt PFTs and further work up of his bronchiectasis - DVT prophylaxis
[2019-02-07 14:59] LABS: BLOOD UREA NITROGEN 26.3 mg/dL (7-18); CALCIUM 8.2 mg/dL (8.5-10.1); CREATININE 2.8 mg/dL (0.55-1.3); POTASSIUM 3.4 mmol/L (3.5-5.1)
[2019-02-07] MEDS ORDERED: glipiZIDE 5 MG TABLET (FP) ONE (15:22)
[2019-02-07] MEDS: CALCIUM ACETATE 667 MG CAPSULE (FP) PO SCH ×3 (15:26→17:39)
[2019-02-07] MEDS: ASPIRIN 81 MG CHEWABLE TABLETS PO SCH (15:27)
[2019-02-07] MEDS: guaiFENesin 200 MG/10 ML 10 ML UNIT-DOSE CUPS PO PRN (15:27)
[2019-02-07] MEDS: PANTOPRAZOLE 40 MG TABLET (FP) PO SCH (15:30)
[2019-02-07] MEDS: VALSARTAN 160 MG TABLET (UD) PO SCH (15:30)
[2019-02-07] MEDS: CALCITRIOL 1 MCG/ML BOT PO SCH (15:35)
[2019-02-07] MEDS: glipiZIDE 10 MG TABLET (FP) PO SCH (15:37)
[2019-02-07] MEDS ORDERED: POTASSIUM CHLORIDE TABS 20 MEQ TABLET.ER (FP) PO ONE (15:42)
--- NOTE | 2019-02-07 15:48 | PN ---
Physical Exam: SUBJECTIVE: Patient seen and examined at bedside. Still feels unwell. OBJECTIVE: Vital Signs Period Temp Pulse Resp BP Sys/Dominguez Pulse Ox Last 24 Hr 97.6 F-98.2 F 40-85 18-20 110-164/64-80 99 Gen: NAD, AAOx3 HEENT: NCAT, EOMI Neck: supple, no jvd Cardio: rrr, normal s1s2, no mrg noted Pulm: mild expiratory wheezing abd: soft, nontender, nondistended Laboratory Results - last 24 hr 02/06/19 02/06/19 02/06/19 17:44 18:37 19:36 Sodium Potassium Chloride Carbon Dioxide Anion Gap BUN Creatinine Est GFR (CKD-EPI)AfAm Est GFR (CKD-EPI)NonAf POC Glucometer 419 447 413 Random Glucose Calcium Group A Strep Rapid 02/06/19 02/07/19 02/07/19 21:00 00:09 03:33 Sodium Potassium Chloride Carbon Dioxide Anion Gap BUN Creatinine Est GFR (CKD-EPI)AfAm Est GFR (CKD-EPI)NonAf POC Glucometer 220 228 Random Glucose 313 H Calcium Group A Strep Rapid 02/07/19 02/07/19 02/07/19 03:50 13:30 14:08 Sodium 140 Potassium 3.4 L Chloride 99 Carbon Dioxide 34 H Anion Gap 8 BUN 26.3 H Creatinine 2.8 H Est GFR (CKD-EPI)AfAm 26.81 Est GFR (CKD-EPI)NonAf 23.13 POC Glucometer 225 Random Glucose 221 H Calcium 8.2 L Group A Strep Rapid Negative Active Medications Generic Name Dose Route Start Last Admin Trade Name Freq PRN Reason Stop Dose Admin Albuterol Sulfate 1 amp 02/04/19 11:57 Ventolin 0.042trength) - NEB Q4H PRN SHORT OF BREATH/WHEEZING Albuterol/Ipratropium 1 amp 02/04/19 12:00 02/07/19 12:21 Duoneb - NEB Not Given RQID [facility] Aspirin 81 mg 02/04/19 10:00 02/07/19 15:27 Asa - PO 81 mg DAILY [facility] Administration Atorvastatin Calcium 10 mg 02/04/19 22:00 02/06/19 22:49 Lipitor - PO 10 mg HS [facility] Administration Calcitriol 0.5 mcg 02/04/19 11:00 02/07/19 15:35 Rocaltrol Liquid - PO Not Given DAILY [facility] Calcium Acetate 1,334 mg 02/05/19 17:30 02/07/19 15:28 Phoslo - PO 1,334 mg TIDCM [facility] Administration Carvedilol 25 mg 02/04/19 10:00 02/06/19 22:50 Coreg - PO 25 mg BID [facility] Administration Glipizide 10 mg 02/07/19 16:30 02/07/19 15:37 Glucotrol - PO 10 mg BID@0700,1630 [facility] Administration Guaifenesin 10 ml 02/04/19 16:35 02/07/19 15:27 Robitussin - PO 10 ml Q6H PRN Administration COUGH Heparin Sodium (Porcine) 5,000 unit 02/04/19 06:00 02/07/19 15:34 Heparin - SQ 5,000 unit TID [facility] Administration Sodium Chloride 250 mls @ 3,000 mls/hr 02/06/19 13:03 Normal Saline - IV PRN PRN Hypotension during Dialysis Insulin Aspart 1 vial 02/04/19 12:00 02/07/19 15:25 Novolog Vial Sliding Scale - SQ 2 units Q4H [facility] Administration Protocol Insulin Detemir 5 units 02/07/19 22:00 Levemir Vial SQ HS [facility] Melatonin 3 mg 02/06/19 01:30 02/06/19 10:35 Melatonin PO 3 mg HS [facility] Administration Methylprednisolone Sodium Succinate 40 mg 02/07/19 20:00 Solu-Medrol - IVPUSH 02/07/19 20:01 BID [facility] Montelukast Sodium 10 mg 02/04/19 22:00 02/06/19 22:49 Singulair - PO 10 mg HS [facility] Administration Pantoprazole Sodium 40 mg 02/04/19 10:00 02/07/19 15:30 Protonix - PO 40 mg DAILY [facility] Administration Potassium Chloride 40 meq 02/07/19 15:42 K-Dur - PO 02/07/19 15:43 ONCE ONE Prednisone 50 mg 02/08/19 10:00 Deltasone - PO DAILY [facility] Sevelamer Carbonate 800 mg 02/04/19 14:00 02/07/19 15:37 Renvela - PO Not Given TID [facility] Sodium Bicarbonate 1,950 mg 02/04/19 06:00 02/07/19 15:35 Sodium Bicarbonate - PO 1,950 mg TID [facility] Administration Valsartan 160 mg 02/05/19 10:00 02/07/19 15:30 Diovan - PO 160 mg DAILY [facility] Administration ASSESSMENT/PLAN: Mr. Pereira is a 63 yo man with history ESRD (MWF dialysis), pleural effusion s/p VATS DM, HTN, CAD s/p CABG and stents, COPD and lymphoma (s/p radiation, now in remission) presenting with a 1 week history of worsening SOB accompanied by productive cough with white sputum. #SOB 2/2 bronchiectasis -Failed OP azithro -CXR neg -Pulm on board. C/w steroids -viral panel pending -strep neg -CT: L basilar thickening, b/l pulm nodularity, inflammatory change -Sputum and blood cultures pending -Weaning from O2 as tolerated. -ID on board #DM with uncontrolled hypergly -ISS -BGM -A1C 8.8 -resume glipizide #ESRD on HD -Renal following, HD per schedule #HyperK -Mild with no EKG changes noted -getting HD #Hx HTN -controlled Visit type - Emergency Visit Emergency Visit: No - New Patient This patient is new to me today: No - Critical Care Critical Care patient: No ATTENDING PHYSICIAN STATEMENT I saw and evaluated the patient. I reviewed the resident's note and discussed the case with the resident. I agree with the resident's findings and plan as documented. SUBJECTIVE: OBJECTIVE: ASSESSMENT AND PLAN:
[2019-02-07] MEDS: VANCOMYCIN 1 GM in D5W (PRE-DOCKED) 1,000 MG/250 ML IVPB SCH (15:53)
[2019-02-07] MEDS: CEFEPIME 1 GM in DEXTROSE 5%-WATER 100 ML IVPB SCH (15:56)
[2019-02-07] MEDS: CARVEDILOL 25 MG TABLET (FP) PO SCH ×2 (16:44→21:21)
[2019-02-07] MEDS ORDERED: methylPREDNISolone NA SUCC 40 MG/1 ML VIAL IVPUSH SCH (20:00)
[2019-02-07] MEDS ORDERED: PT OWN MED DRAWER 7, Y5N ONE ×2 (20:03→21:23)
[2019-02-07 20:59] VITALS: BMI 32.5
[2019-02-07] MEDS: ATORVASTATIN CA 10 MG TABLET (FP) PO SCH (21:13)
[2019-02-07] MEDS: MONTELUKAST NA 10 MG TABLET PO SCH (21:13)
[2019-02-07] MEDS: MELATONIN 1 MG TABLET PO SCH (21:32)
[2019-02-07] MEDS: INSULIN (LEVEMIR) 100 UNITS/ML UNITS SQ SCH (22:27)
[2019-02-08] MEDS: INSULIN SLIDING SCALE (NOVOLOG) 1 VIAL SQ SCH ×7 (00:02→23:46)
[2019-02-08] MEDS: SODIUM BICARBONATE 650 MG TABLET PO SCH ×3 (05:43→22:15)
[2019-02-08] MEDS ORDERED: glipiZIDE 5 MG TABLET (FP) ONE ×3 (05:44→14:55)
[2019-02-08] MEDS: SEVELAMER CARBONATE 800 MG TAB (FP) PO SCH ×3 (05:44→22:14)
[2019-02-08] MEDS: HEPARIN NA (PORCINE) 5,000 UNITS/ML 1ML VIAL SQ SCH ×3 (05:44→22:16)
[2019-02-08] MEDS: glipiZIDE 10 MG TABLET (FP) PO SCH ×2 (06:16→16:28)
[2019-02-08] MEDS: guaiFENesin 200 MG/10 ML 10 ML UNIT-DOSE CUPS PO PRN ×2 (06:52→23:46)
[2019-02-08] MEDS: ALBUTEROL SO4 2.5/IPRATROPIUM 0.5 INH SOL 3 ML VIAL.NEB. NEB SCH ×4 (07:33→21:02)
[2019-02-08 07:39] LABS: HEMATOCRIT 32.3 % (35.4-49); MCH 32.4 pg (25.7-33.7); MCHC 34.1 g/dl (32.0-35.9); MEAN CELL VOLUME 95.1 fl (80-96); PLATELET COUNT 77 K/MM3 (134-434); RDW 14.5 % (11.9-15.9); WHITE BLOOD COUNT 6.2 K/mm3 (4.0-10.0)
[2019-02-08 07:47] LABS: BLOOD UREA NITROGEN 64.7 mg/dL (7-18); CALCIUM 7.4 mg/dL (8.5-10.1); POTASSIUM 4.9 mmol/L (3.5-5.1)
[2019-02-08] MEDS: CARVEDILOL 25 MG TABLET (FP) PO SCH ×2 (09:33→22:14)
[2019-02-08] MEDS: ASPIRIN 81 MG CHEWABLE TABLETS PO SCH (09:33)
[2019-02-08] MEDS: CALCIUM ACETATE 667 MG CAPSULE (FP) PO SCH ×3 (09:33→17:41)
[2019-02-08] MEDS: predniSONE 20 MG TABLET (UD) PO SCH (09:33)
[2019-02-08] MEDS: PANTOPRAZOLE 40 MG TABLET (FP) PO SCH (09:33)
[2019-02-08] MEDS: VALSARTAN 160 MG TABLET (UD) PO SCH (09:34)
[2019-02-08] MEDS: CALCITRIOL 1 MCG/ML BOT PO SCH (09:34)
[2019-02-08] MEDS ORDERED: INSULIN (NOVOLOG) ASPART 100 UNITS/ML 10ML VIAL ONE ×2 (09:42→20:12)
--- NOTE | 2019-02-08 11:16 | PN ---
Progress Note, Physician History of Present Illness: stable no new issues - Current Medication List Current Medications: Active Medications Albuterol Sulfate (Ventolin 0.042trength) -) 1 amp NEB Q4H PRN PRN Reason: SHORT OF BREATH/WHEEZING Albuterol/Ipratropium (Duoneb -) 1 amp NEB RQID [facility] Last Admin: 02/08/19 07:33 Dose: 1 amp Aspirin (Asa -) 81 mg PO DAILY [facility] Last Admin: 02/08/19 09:33 Dose: 81 mg Atorvastatin Calcium (Lipitor -) 10 mg PO HS [facility] Last Admin: 02/07/19 21:13 Dose: 10 mg Calcitriol (Rocaltrol Liquid -) 0.5 mcg PO DAILY [facility] Last Admin: 02/08/19 09:34 Dose: 0.5 mcg Calcium Acetate (Phoslo -) 1,334 mg PO TIDCM [facility] Last Admin: 02/08/19 09:33 Dose: 1,334 mg Carvedilol (Coreg -) 25 mg PO BID [facility] Last Admin: 02/08/19 09:33 Dose: 25 mg Glipizide (Glucotrol -) 10 mg PO BID@0700,1630 [facility] Last Admin: 02/08/19 06:16 Dose: 10 mg Guaifenesin (Robitussin -) 10 ml PO Q6H PRN PRN Reason: COUGH Last Admin: 02/08/19 06:52 Dose: 10 ml Heparin Sodium (Porcine) (Heparin -) 5,000 unit SQ TID [facility] Last Admin: 02/08/19 05:44 Dose: 5,000 unit Sodium Chloride (Normal Saline -) 250 mls @ 3,000 mls/hr IV PRN PRN PRN Reason: Hypotension during Dialysis Insulin Aspart (Novolog Vial Sliding Scale -) 1 vial SQ Q4H [facility]; Protocol Last Admin: 02/08/19 09:45 Dose: 2 units Insulin Detemir (Levemir Vial) 5 units SQ [facility] Last Admin: 02/07/19 22:27 Dose: 5 units Melatonin (Melatonin) 3 mg PO HS [facility] Last Admin: 02/07/19 21:32 Dose: 3 mg Montelukast Sodium (Singulair -) 10 mg PO HS [facility] Last Admin: 02/07/19 21:13 Dose: 10 mg Pantoprazole Sodium (Protonix -) 40 mg PO DAILY [facility] Last Admin: 02/08/19 09:33 Dose: 40 mg Prednisone (Deltasone -) 50 mg PO DAILY [facility] Last Admin: 02/08/19 09:33 Dose: 50 mg Sevelamer Carbonate (Renvela -) 800 mg PO TID [facility] Last Admin: 02/08/19 05:44 Dose: 800 mg Sodium Bicarbonate (Sodium Bicarbonate -) 1,950 mg PO TID [facility] Last Admin: 02/08/19 05:43 Dose: 1,950 mg Valsartan (Diovan -) 160 mg PO DAILY [facility] Last Admin: 02/08/19 09:34 Dose: 160 mg - Objective Vital Signs: Vital Signs Temperature 98.1 F 02/08/19 08:28 Pulse Rate 80 02/08/19 08:28 Respiratory Rate 20 02/08/19 08:33 Blood Pressure 146/59 L 02/08/19 08:28 O2 Sat by Pulse Oximetry (%) 98 02/08/19 08:33 Constitutional: Yes: No Distress, Calm Cardiovascular: Yes: S1, S2 Respiratory: Yes: Regular, CTA Bilaterally Gastrointestinal: Yes: Normal Bowel Sounds, Soft Musculoskeletal: Yes: WNL Extremities: Yes: WNL Neurological: Yes: Alert, Oriented Psychiatric: Yes: Alert, Oriented Labs: CBC, BMP 02/08/19 06:35 02/08/19 06:35 Assessment/Plan esrd h/o NHL in remission htn h/o cabg h/o thoracotomy copd bronchitis plan continue current mgmt dialysis
--- NOTE | 2019-02-08 11:17 | PN ---
Progress Note (short form) - Note Progress Note: PULMONARY Seen after ambulating down hallways x 2. Now with some shortness of breath and chest tightness. Improving with rest. Vital Signs Period Temp Pulse Resp BP Sys/Dominguez Pulse Ox Last 24 Hr 97.7 F-98.4 F 70-102 18-20 144-164/59-74 90-98 Gen: NAD at rest Heart: RRR Lung: decreased air movement, scattered wheeze Abd: soft, nontender Ext: no edema CBC, BMP 02/08/19 06:35 02/08/19 06:35 Active Medications Albuterol Sulfate (Ventolin 0.042trength) -) 1 amp NEB Q4H PRN PRN Reason: SHORT OF BREATH/WHEEZING Albuterol/Ipratropium (Duoneb -) 1 amp NEB RQID [facility] Last Admin: 02/08/19 07:33 Dose: 1 amp Aspirin (Asa -) 81 mg PO DAILY [facility] Last Admin: 02/08/19 09:33 Dose: 81 mg Atorvastatin Calcium (Lipitor -) 10 mg PO HS [facility] Last Admin: 02/07/19 21:13 Dose: 10 mg Calcitriol (Rocaltrol Liquid -) 0.5 mcg PO DAILY [facility] Last Admin: 02/08/19 09:34 Dose: 0.5 mcg Calcium Acetate (Phoslo -) 1,334 mg PO TIDCM [facility] Last Admin: 02/08/19 09:33 Dose: 1,334 mg Carvedilol (Coreg -) 25 mg PO BID [facility] Last Admin: 02/08/19 09:33 Dose: 25 mg Glipizide (Glucotrol -) 10 mg PO BID@0700,1630 [facility] Last Admin: 02/08/19 06:16 Dose: 10 mg Guaifenesin (Robitussin -) 10 ml PO Q6H PRN PRN Reason: COUGH Last Admin: 02/08/19 06:52 Dose: 10 ml Heparin Sodium (Porcine) (Heparin -) 5,000 unit SQ TID [facility] Last Admin: 02/08/19 05:44 Dose: 5,000 unit Sodium Chloride (Normal Saline -) 250 mls @ 3,000 mls/hr IV PRN PRN PRN Reason: Hypotension during Dialysis Insulin Aspart (Novolog Vial Sliding Scale -) 1 vial SQ Q4H [facility]; Protocol Last Admin: 02/08/19 09:45 Dose: 2 units Insulin Detemir (Levemir Vial) 5 units SQ HS [facility] Last Admin: 02/07/19 22:27 Dose: 5 units Melatonin (Melatonin) 3 mg PO HS [facility] Last Admin: 02/07/19 21:32 Dose: 3 mg Montelukast Sodium (Singulair -) 10 mg PO HS [facility] Last Admin: 02/07/19 21:13 Dose: 10 mg Pantoprazole Sodium (Protonix -) 40 mg PO DAILY [facility] Last Admin: 02/08/19 09:33 Dose: 40 mg Prednisone (Deltasone -) 50 mg PO DAILY [facility] Last Admin: 02/08/19 09:33 Dose: 50 mg Sevelamer Carbonate (Renvela -) 800 mg PO TID [facility] Last Admin: 02/08/19 05:44 Dose: 800 mg Sodium Bicarbonate (Sodium Bicarbonate -) 1,950 mg PO TID [facility] Last Admin: 02/08/19 05:43 Dose: 1,950 mg Valsartan (Diovan -) 160 mg PO DAILY [facility] Last Admin: 02/08/19 09:34 Dose: 160 mg A/P Acute COPD Exacerbation Chronic Bronchitis Bronchiectasis CAD s/p CABG ESRD on HD HTN DM h/o Lymphoma - agree with prednisone taper, will likely need slow taper - inhaled bronchodilators standing and PRN - O2 to keep SpO2 >90% - HD per renal - will need outpt PFTs - DVT prophylaxis - can be discharged from pulmonary standpoint on steroid taper, LABA/ICS, LAMA , nebs
--- NOTE | 2019-02-08 11:42 | PN ---
Teaching Attending Note Name of Resident: Thor Guy ATTENDING PHYSICIAN STATEMENT I saw and evaluated the patient. I reviewed the resident's note and discussed the case with the resident. I agree with the resident's findings and plan as documented with exceptions below. SUBJECTIVE: Patient seen and examined. breathing improved, still with cough, but overall better. OBJECTIVE: Vital Signs Period Temp Pulse Resp BP Sys/Dominguez Pulse Ox Last 24 Hr 97.7 F-98.4 F 70-102 18-20 144-164/59-74 90-98 Intake & Output 02/05/19 02/06/19 02/07/19 02/08/19 23:59 23:59 23:59 23:59 Intake Total 1870 1730 1760 240 Output Total 3700 3700 Balance -1830 1730 -1940 240 Weight 202 lb 201 lb 4 oz 201 lb 3 oz 208 lb 6.4 oz General: sitting at edge of bed, no acute distress neck: soft, supple Chest: improved air entry, no rales or wheezing appreciated Abdomen:Soft, obese, NT Extremities: no edema Home Medications Medication Instructions Recorded Renvela - 800 mg PO TID 02/04/19 Albuterol Sulfate 0.042% [Ventolin 1 amp NEB Q4H PRN amp 02/08/19 0.042% (Half-Strength) -] Aspirin 81 mg PO DAILY #10 tab.chew 02/08/19 Budesonide/Formeterol Fumarate 1 inh PO BID #1 cannister 02/08/19 [SYMBICORT 160/4.5mcg -] Calcium Acetate [Phoslo -] 667 mg PO TID #30 capsule 02/08/19 Candesartan Cilexetil [Atacand] 8 mg PO BID #20 tablet 02/08/19 Carvedilol 25 mg PO BID #20 tablet 02/08/19 Glipizide 10 mg PO BID #20 tablet 02/08/19 Guaifenesin [Robitussin -] 10 ml PO Q6H PRN #1 bottle 02/08/19 Montelukast Na [Singulair -] 10 mg PO DAILY #10 tablet 02/08/19 Pantoprazole Sodium 40 mg PO DAILY #10 tablet. 02/08/19 Pravastatin Sodium [Pravachol -] 40 mg PO HS #10 tablet 02/08/19 Prednisone See Taper PO DAILY #30 tablet 02/08/19 Sevelamer HCl 800 mg PO TID #30 tablet 02/08/19 Sodium Bicarbonate - 1,950 mg PO TID #30 tablet 02/08/19 Tiotropium [place] [Spiriva] 1 inh PO DAILY #1 inhaler 02/08/19 Active Medications Albuterol Sulfate (Ventolin 0.042trength) -) 1 amp NEB Q4H PRN PRN Reason: SHORT OF BREATH/WHEEZING Albuterol/Ipratropium (Duoneb -) 1 amp NEB RQID [facility] Last Admin: 02/08/19 07:33 Dose: 1 amp Aspirin (Asa -) 81 mg PO DAILY [facility] Last Admin: 02/08/19 09:33 Dose: 81 mg Atorvastatin Calcium (Lipitor -) 10 mg PO HS [facility] Last Admin: 02/07/19 21:13 Dose: 10 mg Calcitriol (Rocaltrol Liquid -) 0.5 mcg PO DAILY [facility] Last Admin: 02/08/19 09:34 Dose: 0.5 mcg Calcium Acetate (Phoslo -) 1,334 mg PO TIDCM [facility] Last Admin: 02/08/19 09:33 Dose: 1,334 mg Carvedilol (Coreg -) 25 mg PO BID [facility] Last Admin: 02/08/19 09:33 Dose: 25 mg Glipizide (Glucotrol -) 10 mg PO BID@0700,1630 [facility] Last Admin: 02/08/19 06:16 Dose: 10 mg Guaifenesin (Robitussin -) 10 ml PO Q6H PRN PRN Reason: COUGH Last Admin: 02/08/19 06:52 Dose: 10 ml Heparin Sodium (Porcine) (Heparin -) 5,000 unit SQ TID [facility] Last Admin: 02/08/19 05:44 Dose: 5,000 unit Sodium Chloride (Normal Saline -) 250 mls @ 3,000 mls/hr IV PRN PRN PRN Reason: Hypotension during Dialysis Insulin Aspart (Novolog Vial Sliding Scale -) 1 vial SQ Q4H [facility]; Protocol Last Admin: 02/08/19 09:45 Dose: 2 units Insulin Detemir (Levemir Vial) 5 units SQ HS [facility] Last Admin: 02/07/19 22:27 Dose: 5 units Melatonin (Melatonin) 3 mg PO HS [facility] Last Admin: 02/07/19 21:32 Dose: 3 mg Montelukast Sodium (Singulair -) 10 mg PO HS [facility] Last Admin: 02/07/19 21:13 Dose: 10 mg Pantoprazole Sodium (Protonix -) 40 mg PO DAILY [facility] Last Admin: 02/08/19 09:33 Dose: 40 mg Prednisone (Deltasone -) 50 mg PO DAILY [facility] Last Admin: 02/08/19 09:33 Dose: 50 mg Sevelamer Carbonate (Renvela -) 800 mg PO TID [facility] Last Admin: 02/08/19 05:44 Dose: 800 mg Sodium Bicarbonate (Sodium Bicarbonate -) 1,950 mg PO TID [facility] Last Admin: 02/08/19 05:43 Dose: 1,950 mg Valsartan (Diovan -) 160 mg PO DAILY [facility] Last Admin: 02/08/19 09:34 Dose: 160 mg Laboratory Results - last 24 hr 02/07/19 02/07/19 02/07/19 13:30 14:08 17:19 WBC RBC Hgb Hct MCV MCH MCHC RDW Plt Count MPV Sodium 140 Potassium 3.4 L Chloride 99 Carbon Dioxide 34 H Anion Gap 8 BUN 26.3 H Creatinine 2.8 H Est GFR (CKD-EPI)AfAm 26.81 Est GFR (CKD-EPI)NonAf 23.13 POC Glucometer 225 388 Random Glucose 221 H Calcium 8.2 L 02/07/19 02/08/19 02/08/19 21:10 00:01 05:40 WBC RBC Hgb Hct MCV MCH MCHC RDW Plt Count MPV Sodium Potassium Chloride Carbon Dioxide Anion Gap BUN Creatinine Est GFR (CKD-EPI)AfAm Est GFR (CKD-EPI)NonAf POC Glucometer 253 278 252 Random Glucose Calcium 02/08/19 02/08/19 02/08/19 06:35 06:35 09:36 WBC 6.2 RBC 3.40 L Hgb 11.0 L Hct 32.3 L MCV 95.1 MCH 32.4 MCHC 34.1 RDW 14.5 Plt Count 77 L D MPV 10.0 Sodium 136 Potassium 4.9 Chloride 96 L Carbon Dioxide 33 H Anion Gap 8 BUN 64.7 H Creatinine 6.0 H Est GFR (CKD-EPI)AfAm 10.67 Est GFR (CKD-EPI)NonAf 9.20 POC Glucometer 243 Random Glucose 266 H Calcium 7.4 L ASSESSMENT AND PLAN: 63 yom with PMhx of ESRD on HD (MWF), Pleural effusion s/p VATS, NIDDM, HTN, CAD s/p CABG/PCI, COPD, lymphoma (s/p radiation, now in remission), admitted with dyspnea and productive cough with white sputum. -Acute exacerbation of COPD/bronchiectasis -Suspected URI like illness -Poorly controlled NIDDM with superimposed steroid induced hyperglycemia -ESRD on HD -Hyperphosphatemia -Hyperkalemia -HTN Plan: Afebrile, normal WBc. Doing well off abx( none received > 24 hours). Sputum cx with normal respi rose, blood cx neg. Monitor off abx. taper steroids. Pulmonary input noted. CT chest reviewed. Add symbicort/spiriva. no home oxygen needs noted. Standing and prn nebs. Renal input noted. Phoslo increased Continue calcitriol/Renvela. A1c 8.8 Resume glipizixde. Patient informed of need for home BGM monitoring and close follow up with PCP on return. Renal input noted, plan for patient to return to hospital for HD with Dr. Goodman till his travel back scheduled next Tuesday. Patient aware of the same. Dispo plan dc home pending HD arrangements. Discussed with patient and nursing. Await Hd arrangements.
[2019-02-08] MEDS ORDERED: SODIUM CHLORIDE 250 ML IV PRN (17:33)
--- NOTE | 2019-02-08 17:33 | PN ---
Progress Note, Physician History of Present Illness: Pt seen and examined at bedside. He is awake and alert. He denies shortness of breath. - Current Medication List Current Medications: Active Medications Albuterol Sulfate (Ventolin 0.042trength) -) 1 amp NEB Q4H PRN PRN Reason: SHORT OF BREATH/WHEEZING Albuterol/Ipratropium (Duoneb -) 1 amp NEB RQID [facility] Last Admin: 02/08/19 15:12 Dose: 1 amp Aspirin (Asa -) 81 mg PO DAILY [facility] Last Admin: 02/08/19 09:33 Dose: 81 mg Atorvastatin Calcium (Lipitor -) 10 mg PO HS [facility] Last Admin: 02/07/19 21:13 Dose: 10 mg Calcitriol (Rocaltrol Liquid -) 0.5 mcg PO DAILY [facility] Last Admin: 02/08/19 09:34 Dose: 0.5 mcg Calcium Acetate (Phoslo -) 1,334 mg PO TIDCM [facility] Last Admin: 02/08/19 13:14 Dose: 1,334 mg Carvedilol (Coreg -) 25 mg PO BID [facility] Last Admin: 02/08/19 09:33 Dose: 25 mg Glipizide (Glucotrol -) 10 mg PO BID@0700,1630 [facility] Last Admin: 02/08/19 16:28 Dose: 10 mg Guaifenesin (Robitussin -) 10 ml PO Q6H PRN PRN Reason: COUGH Last Admin: 02/08/19 06:52 Dose: 10 ml Heparin Sodium (Porcine) (Heparin -) 5,000 unit SQ TID [facility] Last Admin: 02/08/19 13:14 Dose: 5,000 unit Sodium Chloride (Normal Saline -) 250 mls @ 3,000 mls/hr IV PRN PRN PRN Reason: Hypotension during Dialysis Insulin Aspart (Novolog Vial Sliding Scale -) 1 vial SQ Q4H [facility]; Protocol Last Admin: 02/08/19 16:27 Dose: 6 units Insulin Detemir (Levemir Vial) 5 units SQ [facility] Last Admin: 02/07/19 22:27 Dose: 5 units Melatonin (Melatonin) 3 mg PO HS [facility] Last Admin: 02/07/19 21:32 Dose: 3 mg Montelukast Sodium (Singulair -) 10 mg PO [facility] Last Admin: 02/07/19 21:13 Dose: 10 mg Pantoprazole Sodium (Protonix -) 40 mg PO DAILY [facility] Last Admin: 02/08/19 09:33 Dose: 40 mg Prednisone (Deltasone -) 50 mg PO DAILY [facility] Last Admin: 02/08/19 09:33 Dose: 50 mg Sevelamer Carbonate (Renvela -) 800 mg PO TID [facility] Last Admin: 02/08/19 13:14 Dose: 800 mg Sodium Bicarbonate (Sodium Bicarbonate -) 1,950 mg PO TID [facility] Last Admin: 02/08/19 13:14 Dose: 1,950 mg Valsartan (Diovan -) 160 mg PO DAILY [facility] Last Admin: 02/08/19 09:34 Dose: 160 mg - Objective Vital Signs: Vital Signs Temperature 98.1 F 02/08/19 08:28 Pulse Rate 92 H 02/08/19 12:09 Respiratory Rate 20 02/08/19 08:33 Blood Pressure 146/59 L 02/08/19 08:28 O2 Sat by Pulse Oximetry (%) 95 02/08/19 12:09 Constitutional: Yes: Calm Eyes: Yes: Conjunctiva Clear HENT: Yes: Atraumatic Neck: Yes: Supple Cardiovascular: Yes: S1, S2 Respiratory: Yes: CTA Bilaterally, Wheezes Gastrointestinal: Yes: Normal Bowel Sounds, Soft Genitourinary: Yes: WNL Musculoskeletal: Yes: WNL Edema: No Neurological: Yes: Oriented Psychiatric: Yes: Oriented Labs: CBC, BMP 02/08/19 06:35 02/08/19 06:35 Assessment/Plan Current Medications Generic Name Dose Route Start Last Admin Trade Name Terry PRN Reason Stop Dose Admin Albuterol Sulfate 1 amp 02/04/19 11:57 Ventolin 0.042trength) - NEB Q4H PRN SHORT OF BREATH/WHEEZING Albuterol/Ipratropium 1 amp 02/04/19 12:00 02/08/19 15:12 Duoneb - NEB 1 amp RQID [facility] Administration Aspirin 81 mg 02/04/19 10:00 02/08/19 09:33 Asa - PO 81 mg DAILY [facility] Administration Atorvastatin Calcium 10 mg 02/04/19 22:00 02/07/19 21:13 Lipitor - PO 10 mg HS [facility] Administration Calcitriol 0.5 mcg 02/04/19 11:00 02/08/19 09:34 Rocaltrol Liquid - PO 0.5 mcg DAILY [facility] Administration Calcium Acetate 1,334 mg 02/05/19 17:30 02/08/19 13:14 Phoslo - PO 1,334 mg TIDCM [facility] Administration Carvedilol 25 mg 02/04/19 10:00 02/08/19 09:33 Coreg - PO 25 mg BID [facility] Administration Glipizide 10 mg 02/07/19 16:30 02/08/19 16:28 Glucotrol - PO 10 mg BID@0700,1630 [facility] Administration Guaifenesin 10 ml 02/04/19 16:35 02/08/19 06:52 Robitussin - PO 10 ml Q6H PRN Administration COUGH Heparin Sodium (Porcine) 5,000 unit 02/04/19 06:00 02/08/19 13:14 Heparin - SQ 5,000 unit TID [facility] Administration Sodium Chloride 250 mls @ 3,000 mls/hr 02/06/19 13:03 Normal Saline - IV PRN PRN Hypotension during Dialysis Insulin Aspart 1 vial 02/04/19 12:00 02/08/19 16:27 Novolog Vial Sliding Scale - SQ 6 units Q4H [facility] Administration Protocol Insulin Detemir 5 units 02/07/19 22:00 02/07/19 22:27 Levemir Vial SQ 5 units HS [facility] Administration Melatonin 3 mg 02/06/19 01:30 02/07/19 21:32 Melatonin PO 3 mg HS [facility] Administration Montelukast Sodium 10 mg 02/04/19 22:00 02/07/19 21:13 Singulair - PO 10 mg HS [facility] Administration Pantoprazole Sodium 40 mg 02/04/19 10:00 02/08/19 09:33 Protonix - PO 40 mg DAILY [facility] Administration Prednisone 50 mg 02/08/19 10:00 02/08/19 09:33 Deltasone - PO 50 mg DAILY [facility] Administration Sevelamer Carbonate 800 mg 02/04/19 14:00 02/08/19 13:14 Renvela - PO 800 mg TID [facility] Administration Sodium Bicarbonate 1,950 mg 02/04/19 06:00 02/08/19 13:14 Sodium Bicarbonate - PO 1,950 mg TID [facility] Administration Valsartan 160 mg 02/05/19 10:00 09/12/19 09:34 Diovan - PO 160 mg DAILY [facility] Administration IMPRESSION esrd h/o NHL in remission htn h/o cabg h/o thoracotomy copd exacerbation PLAN - HD tomorrow - pt's fight changed and he can get HD on Tuesday in [place] - renal diet - fluid restriction
--- NOTE | 2019-02-08 18:01 | PN ---
Physical Exam: SUBJECTIVE: Patient seen and examined at bedside. no acute events OBJECTIVE: Vital Signs Period Temp Pulse Resp BP Sys/Dominguez Pulse Ox Last 24 Hr 97.7 F-98.4 F 74-102 20-20 144-157/59-74 90-98 Gen: NAD, AAOx3 HEENT: NCAT, EOMI Neck: supple, no jvd Cardio: rrr, normal s1s2, no mrg noted Pulm: mild expiratory wheezing abd: soft, nontender, nondistended Laboratory Results - last 24 hr 02/07/19 02/08/19 02/08/19 21:10 00:01 05:40 WBC RBC Hgb Hct MCV MCH MCHC RDW Plt Count MPV Sodium Potassium Chloride Carbon Dioxide Anion Gap BUN Creatinine Est GFR (CKD-EPI)AfAm Est GFR (CKD-EPI)NonAf POC Glucometer 253 278 252 Random Glucose Calcium 02/08/19 02/08/19 02/08/19 06:35 06:35 09:36 WBC 6.2 RBC 3.40 L Hgb 11.0 L Hct 32.3 L MCV 95.1 MCH 32.4 MCHC 34.1 RDW 14.5 Plt Count 77 L D MPV 10.0 Sodium 136 Potassium 4.9 Chloride 96 L Carbon Dioxide 33 H Anion Gap 8 BUN 64.7 H Creatinine 6.0 H Est GFR (CKD-EPI)AfAm 10.67 Est GFR (CKD-EPI)NonAf 9.20 POC Glucometer 243 Random Glucose 266 H Calcium 7.4 L 02/08/19 02/08/19 13:20 16:23 WBC RBC Hgb Hct MCV MCH MCHC RDW Plt Count MPV Sodium Potassium Chloride Carbon Dioxide Anion Gap BUN Creatinine Est GFR (CKD-EPI)AfAm Est GFR (CKD-EPI)NonAf POC Glucometer 380 329 Random Glucose Calcium Active Medications Generic Name Dose Route Start Last Admin Trade Name Freq PRN Reason Stop Dose Admin Albuterol Sulfate 1 amp 02/04/19 11:57 Ventolin 0.042trength) - NEB Q4H PRN SHORT OF BREATH/WHEEZING Albuterol/Ipratropium 1 amp 02/04/19 12:00 02/08/19 15:12 Duoneb - NEB 1 amp RQID [facility] Administration Aspirin 81 mg 02/04/19 10:00 02/08/19 09:33 Asa - PO 81 mg DAILY [facility] Administration Atorvastatin Calcium 10 mg 02/04/19 22:00 02/07/19 21:13 Lipitor - PO 10 mg HS [facility] Administration Calcitriol 0.5 mcg 02/04/19 11:00 02/08/19 09:34 Rocaltrol Liquid - PO 0.5 mcg DAILY [facility] Administration Calcium Acetate 1,334 mg 02/05/19 17:30 02/08/19 17:41 Phoslo - PO 1,334 mg TIDCM [facility] Administration Carvedilol 25 mg 02/04/19 10:00 02/08/19 09:33 Coreg - PO 25 mg BID [facility] Administration Glipizide 10 mg 02/07/19 16:30 02/08/19 16:28 Glucotrol - PO 10 mg BID@0700,1630 [facility] Administration Guaifenesin 10 ml 02/04/19 16:35 02/08/19 06:52 Robitussin - PO 10 ml Q6H PRN Administration COUGH Heparin Sodium (Porcine) 5,000 unit 02/04/19 06:00 02/08/19 13:14 Heparin - SQ 5,000 unit TID [facility] Administration Sodium Chloride 250 mls @ 3,000 mls/hr 02/06/19 13:03 Normal Saline - IV PRN PRN Hypotension during Dialysis Sodium Chloride 250 mls @ 3,000 mls/hr 02/08/19 17:33 Normal Saline - IV 02/09/19 17:33 PRN PRN Hypotension during Dialysis Insulin Aspart 1 vial 02/04/19 12:00 02/08/19 16:27 Novolog Vial Sliding Scale - SQ 6 units Q4H [facility] Administration Protocol Insulin Detemir 5 units 02/07/19 22:00 02/07/19 22:27 Levemir Vial SQ 5 units HS [facility] Administration Melatonin 3 mg 02/06/19 01:30 02/07/19 21:32 Melatonin PO 3 mg HS [facility] Administration Montelukast Sodium 10 mg 02/04/19 22:00 02/07/19 21:13 Singulair - PO 10 mg HS [facility] Administration Pantoprazole Sodium 40 mg 02/04/19 10:00 02/08/19 09:33 Protonix - PO 40 mg DAILY [facility] Administration Prednisone 50 mg 02/08/19 10:00 02/08/19 09:33 Deltasone - PO 50 mg DAILY [facility] Administration Sevelamer Carbonate 800 mg 02/04/19 14:00 02/08/19 13:14 Renvela - PO 800 mg TID [facility] Administration Sodium Bicarbonate 1,950 mg 02/04/19 06:00 02/08/19 13:14 Sodium Bicarbonate - PO 1,950 mg TID [facility] Administration Valsartan 160 mg 02/05/19 10:00 02/08/19 09:34 Diovan - PO 160 mg DAILY [facility] Administration ASSESSMENT/PLAN: -Mr. Pereira is a 63 yo man with history ESRD (MWF dialysis), pleural effusion s/p VATS DM, HTN, CAD s/p CABG and stents, COPD and lymphoma (s/p radiation, now in remission) presenting with a 1 week history of worsening SOB accompanied by productive cough with white sputum. #SOB 2/2 bronchiectasis -Failed OP azithro -CXR neg -Pulm on board. C/w steroids -viral panel pending -strep neg -CT: L basilar thickening, b/l pulm nodularity, inflammatory change -Sputum and blood cultures pending -Weaning from O2 as tolerated. -ID on board #DM with uncontrolled hypergly -ISS -BGM -A1C 8.8 -resume glipizide #ESRD on HD -Renal following, HD per schedule #HyperK -Mild with no EKG changes noted -getting HD #Hx HTN -controlledISS -BGM -A1C 8.8 -resume glipizide #ESRD on HD -Renal following, HD per schedule #HyperK -Mild with no EKG changes noted -getting HD #Hx HTN -controlled Visit type - Emergency Visit Emergency Visit: No - New Patient This patient is new to me today: No - Critical Care Critical Care patient: No ATTENDING PHYSICIAN STATEMENT I saw and evaluated the patient. I reviewed the resident's note and discussed the case with the resident. I agree with the resident's findings and plan as documented. SUBJECTIVE: OBJECTIVE: ASSESSMENT AND PLAN:
[2019-02-08] MEDS ORDERED: guaiFENesin 600 MG TABLET.ER (FP) PO ONE (21:01)
[2019-02-08] MEDS: MONTELUKAST NA 10 MG TABLET PO SCH (22:15)
[2019-02-08] MEDS: ATORVASTATIN CA 10 MG TABLET (FP) PO SCH (22:15)
[2019-02-08] MEDS: MELATONIN 1 MG TABLET PO SCH (22:16)
[2019-02-08] MEDS: INSULIN (LEVEMIR) 100 UNITS/ML UNITS SQ SCH (22:17)
[2019-02-09] MEDS: INSULIN SLIDING SCALE (NOVOLOG) 1 VIAL SQ SCH ×5 (04:00→21:14)
[2019-02-09] MEDS ORDERED: glipiZIDE 5 MG TABLET (FP) ONE ×2 (06:56→17:19)
[2019-02-09] MEDS: glipiZIDE 10 MG TABLET (FP) PO SCH ×2 (06:57→17:22)
[2019-02-09] MEDS: SODIUM BICARBONATE 650 MG TABLET PO SCH ×2 (06:58→14:15)
[2019-02-09] MEDS: SEVELAMER CARBONATE 800 MG TAB (FP) PO SCH ×3 (06:58→21:07)
[2019-02-09] MEDS: HEPARIN NA (PORCINE) 5,000 UNITS/ML 1ML VIAL SQ SCH ×3 (06:58→21:04)
[2019-02-09] MEDS: ALBUTEROL SO4 2.5/IPRATROPIUM 0.5 INH SOL 3 ML VIAL.NEB. NEB SCH ×4 (07:28→20:35)
[2019-02-09] MEDS: CALCIUM ACETATE 667 MG CAPSULE (FP) PO SCH ×3 (08:30→17:57)
[2019-02-09] MEDS ORDERED: PT OWN MED DRAWER 7, Y5N ONE ×2 (11:48→21:16)
--- NOTE | 2019-02-09 12:25 | PN ---
Progress Note, Physician - Current Medication List Current Medications: Active Medications Albuterol Sulfate (Ventolin 0.042trength) -) 1 amp NEB Q4H PRN PRN Reason: SHORT OF BREATH/WHEEZING Albuterol/Ipratropium (Duoneb -) 1 amp NEB RQID [facility] Last Admin: 02/09/19 07:28 Dose: 1 amp Aspirin (Asa -) 81 mg PO DAILY [facility] Last Admin: 02/08/19 09:33 Dose: 81 mg Atorvastatin Calcium (Lipitor -) 10 mg PO HS [facility] Last Admin: 02/08/19 22:15 Dose: 10 mg Calcitriol (Rocaltrol Liquid -) 0.5 mcg PO DAILY [facility] Last Admin: 02/08/19 09:34 Dose: 0.5 mcg Calcium Acetate (Phoslo -) 1,334 mg PO TIDCM [facility] Last Admin: 02/09/19 08:30 Dose: Not Given Carvedilol (Coreg -) 25 mg PO BID [facility] Last Admin: 02/08/19 22:14 Dose: 25 mg Glipizide (Glucotrol -) 10 mg PO BID@0700,1630 [facility] Last Admin: 02/09/19 06:57 Dose: 10 mg Guaifenesin (Robitussin -) 10 ml PO Q6H PRN PRN Reason: COUGH Last Admin: 02/08/19 23:46 Dose: 10 ml Heparin Sodium (Porcine) (Heparin -) 5,000 unit SQ TID [facility] Last Admin: 02/09/19 06:58 Dose: 5,000 unit Sodium Chloride (Normal Saline -) 250 mls @ 3,000 mls/hr IV PRN PRN PRN Reason: Hypotension during Dialysis Sodium Chloride (Normal Saline -) 250 mls @ 3,000 mls/hr IV PRN PRN PRN Reason: Hypotension during Dialysis Stop: 02/09/19 17:33 Insulin Aspart (Novolog Vial Sliding Scale -) 1 vial SQ Q4H [facility]; Protocol Last Admin: 02/09/19 08:32 Dose: Not Given Insulin Detemir (Levemir Vial) 5 units SQ [facility] Last Admin: 02/08/19 22:17 Dose: 5 units Melatonin (Melatonin) 3 mg PO [facility] Last Admin: 02/08/19 22:16 Dose: 3 mg Montelukast Sodium (Singulair -) 10 mg PO HS [facility] Last Admin: 02/08/19 22:15 Dose: 10 mg Pantoprazole Sodium (Protonix -) 40 mg PO DAILY [facility] Last Admin: 02/08/19 09:33 Dose: 40 mg Prednisone (Deltasone -) 50 mg PO DAILY [facility] Last Admin: 02/08/19 09:33 Dose: 50 mg Sevelamer Carbonate (Renvela -) 800 mg PO TID [facility] Last Admin: 02/09/19 06:58 Dose: 800 mg Sodium Bicarbonate (Sodium Bicarbonate -) 1,950 mg PO TID [facility] Last Admin: 02/09/19 06:58 Dose: 1,950 mg Valsartan (Diovan -) 160 mg PO DAILY [facility] Last Admin: 02/08/19 09:34 Dose: 160 mg - Objective Vital Signs: Vital Signs Temperature 97.8 F 02/09/19 05:48 Pulse Rate 68 02/09/19 12:05 Respiratory Rate 18 02/09/19 12:05 Blood Pressure 131/65 02/09/19 12:05 O2 Sat by Pulse Oximetry (%) 95 02/08/19 12:09 Labs: CBC, BMP 02/08/19 06:35 02/08/19 06:35
[2019-02-09] MEDS: PANTOPRAZOLE 40 MG TABLET (FP) PO SCH (14:10)
[2019-02-09] MEDS: VALSARTAN 160 MG TABLET (UD) PO SCH (14:10)
[2019-02-09] MEDS: ASPIRIN 81 MG CHEWABLE TABLETS PO SCH (14:10)
[2019-02-09] MEDS: CALCITRIOL 1 MCG/ML BOT PO SCH (14:12)
[2019-02-09] MEDS: predniSONE 20 MG TABLET (UD) PO SCH (14:12)
[2019-02-09] MEDS: CARVEDILOL 25 MG TABLET (FP) PO SCH ×2 (14:12→21:07)
[2019-02-09] MEDS: guaiFENesin 200 MG/10 ML 10 ML UNIT-DOSE CUPS PO PRN (14:22)
--- NOTE | 2019-02-09 15:06 | PN ---
Progress Note, Physician History of Present Illness: Pt seen and examined at bedside. He tolerated HD. He feels that his wheezing is worse. - Current Medication List Current Medications: Active Medications Albuterol Sulfate (Ventolin 0.042trength) -) 1 amp NEB Q4H PRN PRN Reason: SHORT OF BREATH/WHEEZING Albuterol/Ipratropium (Duoneb -) 1 amp NEB RQID [facility] Last Admin: 02/09/19 07:28 Dose: 1 amp Aspirin (Asa -) 81 mg PO DAILY [facility] Last Admin: 02/09/19 14:10 Dose: 81 mg Atorvastatin Calcium (Lipitor -) 10 mg PO HS [facility] Last Admin: 02/08/19 22:15 Dose: 10 mg Calcitriol (Rocaltrol Liquid -) 0.5 mcg PO DAILY [facility] Last Admin: 02/09/19 14:12 Dose: 0.5 mcg Calcium Acetate (Phoslo -) 1,334 mg PO TIDCM [facility] Last Admin: 02/09/19 14:10 Dose: 1,334 mg Carvedilol (Coreg -) 25 mg PO BID [facility] Last Admin: 02/09/19 14:12 Dose: 25 mg Glipizide (Glucotrol -) 10 mg PO BID@0700,1630 [facility] Last Admin: 02/09/19 06:57 Dose: 10 mg Guaifenesin (Robitussin -) 10 ml PO Q6H PRN PRN Reason: COUGH Last Admin: 02/09/19 14:22 Dose: 10 ml Heparin Sodium (Porcine) (Heparin -) 5,000 unit SQ TID [facility] Last Admin: 02/09/19 14:15 Dose: 5,000 unit Sodium Chloride (Normal Saline -) 250 mls @ 3,000 mls/hr IV PRN PRN PRN Reason: Hypotension during Dialysis Sodium Chloride (Normal Saline -) 250 mls @ 3,000 mls/hr IV PRN PRN PRN Reason: Hypotension during Dialysis Stop: 02/09/19 17:33 Insulin Aspart (Novolog Vial Sliding Scale -) 1 vial SQ Q4H [facility]; Protocol Last Admin: 02/09/19 12:00 Dose: Not Given Insulin Detemir (Levemir Vial) 5 units SQ HS [facility] Last Admin: 02/08/19 22:17 Dose: 5 units Melatonin (Melatonin) 3 mg PO HS [facility] Last Admin: 02/08/19 22:16 Dose: 3 mg Montelukast Sodium (Singulair -) 10 mg PO HS [facility] Last Admin: 02/08/19 22:15 Dose: 10 mg Pantoprazole Sodium (Protonix -) 40 mg PO DAILY [facility] Last Admin: 02/09/19 14:10 Dose: 40 mg Prednisone (Deltasone -) 50 mg PO DAILY [facility] Last Admin: 02/09/19 14:12 Dose: 50 mg Sevelamer Carbonate (Renvela -) 800 mg PO TID [facility] Last Admin: 02/09/19 14:15 Dose: 800 mg Sodium Bicarbonate (Sodium Bicarbonate -) 1,950 mg PO TID [facility] Last Admin: 02/09/19 14:15 Dose: 1,950 mg Valsartan (Diovan -) 160 mg PO DAILY [facility] Last Admin: 02/09/19 14:10 Dose: 160 mg - Objective Vital Signs: Vital Signs Temperature 97.8 F 02/09/19 05:48 Pulse Rate 72 02/09/19 12:46 Respiratory Rate 18 02/09/19 12:46 Blood Pressure 152/85 02/09/19 14:09 O2 Sat by Pulse Oximetry (%) 95 02/08/19 12:09 Constitutional: Yes: Calm Eyes: Yes: Conjunctiva Clear HENT: Yes: Atraumatic Cardiovascular: Yes: S1, S2 Respiratory: Yes: Wheezes Gastrointestinal: Yes: Soft, Abdomen, Obese Genitourinary: Yes: WNL Musculoskeletal: Yes: WNL Edema: Yes Edema: LLE: 1+, RLE: 1+ Neurological: Yes: Oriented Psychiatric: Yes: Oriented Labs: CBC, BMP 02/08/19 06:35 02/08/19 06:35 Assessment/Plan Current Medications Generic Name Dose Route Start Last Admin Trade Name Freq PRN Reason Stop Dose Admin Albuterol Sulfate 1 amp 02/04/19 11:57 Ventolin 0.042trength) - NEB Q4H PRN SHORT OF BREATH/WHEEZING Albuterol/Ipratropium 1 amp 02/04/19 12:00 02/09/19 07:28 Duoneb - NEB 1 amp RQID [facility] Administration Aspirin 81 mg 02/04/19 10:00 02/09/19 14:10 Asa - PO 81 mg DAILY [facility] Administration Atorvastatin Calcium 10 mg 02/04/19 22:00 02/08/19 22:15 Lipitor - PO 10 mg HS ANNI Administration Calcitriol 0.5 mcg 02/04/19 11:00 02/09/19 14:12 Rocaltrol Liquid - PO 0.5 mcg DAILY [facility]NI Administration Calcium Acetate 1,334 mg 02/05/19 17:30 02/09/19 14:10 Phoslo - PO 1,334 mg TIDCM [facility]NI Administration Carvedilol 25 mg 02/04/19 10:00 02/09/19 14:12 Coreg - PO 25 mg BID [facility] Administration Glipizide 10 mg 02/07/19 16:30 02/09/19 06:57 Glucotrol - PO 10 mg BID@0700,1630 [facility] Administration Guaifenesin 10 ml 02/04/19 16:35 02/09/19 14:22 Robitussin - PO 10 ml Q6H PRN Administration COUGH Heparin Sodium (Porcine) 5,000 unit 02/04/19 06:00 02/09/19 14:15 Heparin - SQ 5,000 unit TID [facility]NI Administration Sodium Chloride 250 mls @ 3,000 mls/hr 02/06/19 13:03 Normal Saline - IV PRN PRN Hypotension during Dialysis Sodium Chloride 250 mls @ 3,000 mls/hr 02/08/19 17:33 Normal Saline - IV 02/09/19 17:33 PRN PRN Hypotension during Dialysis Insulin Aspart 1 vial 02/04/19 12:00 02/09/19 12:00 Novolog Vial Sliding Scale - SQ Not Given Q4H [facility] Protocol Insulin Detemir 5 units 02/07/19 22:00 02/08/19 22:17 Levemir Vial SQ 5 units HS [facility] Administration Melatonin 3 mg 02/06/19 01:30 02/08/19 22:16 Melatonin PO 3 mg HS [facility] Administration Montelukast Sodium 10 mg 02/04/19 22:00 02/08/19 22:15 Singulair - PO 10 mg HS [facility]NI Administration Pantoprazole Sodium 40 mg 02/04/19 10:00 02/09/19 14:10 Protonix - PO 40 mg DAILY [facility] Administration Prednisone 50 mg 02/08/19 10:00 02/09/19 14:12 Deltasone - PO 50 mg DAILY [facility]NI Administration Sevelamer Carbonate 800 mg 02/04/19 14:00 02/09/19 14:15 Renvela - PO 800 mg TID [facility] Administration Sodium Bicarbonate 1,950 mg 02/04/19 06:00 02/09/19 14:15 Sodium Bicarbonate - PO 1,950 mg TID [facility]NI Administration Valsartan 160 mg 02/05/19 10:00 02/09/19 14:10 Diovan - PO 160 mg DAILY [facility]NI Administration IMPRESSION esrd h/o NHL in remission htn h/o cabg h/o thoracotomy copd exacerbation PLAN - stop po bicarb - will arrange for another HD session tomorrow - renal diet with fluid restriction - pt will not be discharged today - discussed with medical team
[2019-02-09] MEDS ORDERED: SODIUM CHLORIDE 250 ML IV PRN (15:08)
--- NOTE | 2019-02-09 15:31 | PN ---
Physical Exam: SUBJECTIVE: Patient seen and examined, worsening breathing today. No complaints otherwise. OBJECTIVE: Vital Signs Period Temp Pulse Resp BP Sys/Dominguez Pulse Ox Last 24 Hr 97.8 F-98.7 F 42-91 18-20 103-162/51-85 Intake & Output 02/06/19 02/07/19 02/08/19 02/09/19 23:59 23:59 23:59 23:59 Intake Total 1730 1760 1270 850 Output Total 3700 4500 Balance 1730 -1940 1270 -3650 Weight 201 lb 4 oz 201 lb 3 oz 208 lb 6.4 oz 209 lb GENERAL: The patient is awake, alert, and fully oriented, in no acute distress. HEAD: Normal with no signs of trauma. EYES: PERRL, extraocular movements intact, sclera anicteric, conjunctiva clear. No ptosis. ENT: Ears normal, nares patent, oropharynx clear without exudates, moist mucous membranes. NECK: Trachea midline, full range of motion, supple. LUNGS: Breath sounds equal, clear to auscultation bilaterally, no wheezes, no crackles, no accessory muscle use. HEART: Regular rate and rhythm, S1, S2 without murmur, rub or gallop. ABDOMEN: Soft, nontender, nondistended, normoactive bowel sounds, no guarding, no rebound, no hepatosplenomegaly, no masses. EXTREMITIES: 2+ pulses, warm, well-perfused, no edema. NEUROLOGICAL: Cranial nerves II through XII grossly intact. Normal speech, gait not observed. PSYCH: Normal mood, normal affect. SKIN: Warm, dry, normal turgor, no rashes or lesions noted Laboratory Results - last 24 hr 02/08/19 02/08/19 02/08/19 16:23 20:03 23:45 POC Glucometer 329 265 244 02/09/19 02/09/19 03:54 13:18 POC Glucometer 258 142 Active Medications Generic Name Dose Route Start Last Admin Trade Name Freq PRN Reason Stop Dose Admin Albuterol Sulfate 1 amp 02/04/19 11:57 Ventolin 0.042trength) - NEB Q4H PRN SHORT OF BREATH/WHEEZING Albuterol/Ipratropium 1 amp 02/04/19 12:00 02/09/19 07:28 Duoneb - NEB 1 amp RQID ANNI Administration Aspirin 81 mg 02/04/19 10:00 02/09/19 14:10 Asa - PO 81 mg DAILY ANNI Administration Atorvastatin Calcium 10 mg 02/04/19 22:00 02/08/19 22:15 Lipitor - PO 10 mg HS ANNI Administration Calcitriol 0.5 mcg 02/04/19 11:00 02/09/19 14:12 Rocaltrol Liquid - PO 0.5 mcg DAILY [facility]NI Administration Calcium Acetate 1,334 mg 02/05/19 17:30 02/09/19 14:10 Phoslo - PO 1,334 mg TIDCM ANNI Administration Carvedilol 25 mg 02/04/19 10:00 02/09/19 14:12 Coreg - PO 25 mg BID [facility]NI Administration Glipizide 10 mg 02/07/19 16:30 02/09/19 06:57 Glucotrol - PO 10 mg BID@0700,1630 ANNI Administration Guaifenesin 10 ml 02/04/19 16:35 02/09/19 14:22 Robitussin - PO 10 ml Q6H PRN Administration COUGH Heparin Sodium (Porcine) 5,000 unit 02/04/19 06:00 02/09/19 14:15 Heparin - SQ 5,000 unit TID [facility]NI Administration Sodium Chloride 250 mls @ 3,000 mls/hr 02/06/19 13:03 Normal Saline - IV PRN PRN Hypotension during Dialysis Sodium Chloride 250 mls @ 3,000 mls/hr 02/08/19 17:33 Normal Saline - IV 02/09/19 17:33 PRN PRN Hypotension during Dialysis Sodium Chloride 250 mls @ 3,000 mls/hr 02/09/19 15:08 Normal Saline - IV 02/10/19 15:08 PRN PRN Hypotension during Dialysis Insulin Aspart 1 vial 02/04/19 12:00 02/09/19 12:00 Novolog Vial Sliding Scale - SQ Not Given Q4H [facility] Protocol Insulin Detemir 5 units 02/07/19 22:00 02/08/19 22:17 Levemir Vial SQ 5 units HS [facility]NI Administration Melatonin 3 mg 02/06/19 01:30 02/08/19 22:16 Melatonin PO 3 mg HS [facility]NI Administration Montelukast Sodium 10 mg 02/04/19 22:00 02/08/19 22:15 Singulair - PO 10 mg HS [facility]NI Administration Pantoprazole Sodium 40 mg 02/04/19 10:00 02/09/19 14:10 Protonix - PO 40 mg DAILY [facility]NI Administration Prednisone 50 mg 02/08/19 10:00 02/09/19 14:12 Deltasone - PO 50 mg DAILY [facility]NI Administration Sevelamer Carbonate 800 mg 02/04/19 14:00 02/09/19 14:15 Renvela - PO 800 mg TID [facility]NI Administration Valsartan 160 mg 02/05/19 10:00 02/09/19 14:10 Diovan - PO 160 mg DAILY [facility]NI Administration Microbiology 02/03/19 20:52 Blood - Peripheral Venous Blood Culture - Final NO GROWTH AFTER 5 DAYS INCUBATION 02/03/19 20:52 Blood - Peripheral Venous Blood Culture - Final NO GROWTH AFTER 5 DAYS INCUBATION 02/07/19 04:24 Throat Throat Culture - Final NO BETA HEMOLYTIC STREPTOCOCCI ISOLATED 02/04/19 14:19 Sputum - Expectorated Gram Stain - Final 02/04/19 14:19 Sputum - Expectorated Sputum Culture - Final NORMAL RESPIRATORY ROSE 02/04/19 14:19 Urine For Antigen Detection Legionella Antigen - Final 02/04/19 14:19 Urine For Antigen Detection Streptococcus pneumoniae Antigen (M - Final ASSESSMENT/PLAN: 63 yom with PMhx of ESRD on HD (MWF), Pleural effusion s/p VATS, NIDDM, HTN, CAD s/p CABG/PCI, COPD, lymphoma (s/p radiation, now in remission), admitted with dyspnea and productive cough with white sputum. -Acute exacerbation of COPD/bronchiectasis -Suspected URI like illness -Poorly controlled NIDDM with superimposed steroid induced hyperglycemia -ESRD on HD -Hyperphosphatemia -Hyperkalemia -HTN Plan: More rales, respiratory status worse. discussed with Dr. Goodman, 4 Kg fluid removed with HD today. Plan for repeat HD tomorrow. Monitor volume status. Afebrile, normal WBc. Doing well off abx( none received > 24 hours). Sputum cx with normal respi rose, blood cx neg. Monitor off abx. Slow steroid taper. Pulmonary input noted. CT chest reviewed Add symbicort/spiriva. no home oxygen needs noted. Standing and prn nebs. Renal input noted. Phoslo increased Continue calcitriol/Renvela. A1c 8.8 Resume glipizide. Patient informed of need for home BGM monitoring and close follow up with PCP on return. dispo pending clinical improvement. patient plans to return to [place] early next week. Visit type - Emergency Visit Emergency Visit: Yes ED Registration Date: 02/03/19 Care time: The patient presented to the Emergency Department on the above date and was hospitalized for further evaluation of their emergent condition. - New Patient This patient is new to me today: No - Critical Care Critical Care patient: No - Discharge Referral Referred to [facility] Med P.C.: No
--- NOTE | 2019-02-09 18:53 | PN ---
Physical Exam: SUBJECTIVE: Patient seen and examined at bedside. OBJECTIVE: Vital Signs Period Temp Pulse Resp BP Sys/Dominguez Pulse Ox Last 24 Hr 97.8 F-98.7 F 42-91 18-20 103-162/51-85 94 Gen: NAD, AAOx3 HEENT: NCAT, EOMI Neck: supple, no jvd Cardio: rrr, normal s1s2, no mrg noted Pulm: mild expiratory wheezing abd: soft, nontender, nondistended Laboratory Results - last 24 hr 02/08/19 02/08/19 02/09/19 20:03 23:45 03:54 POC Glucometer 265 244 258 02/09/19 02/09/19 13:18 17:18 POC Glucometer 142 289 Active Medications Generic Name Dose Route Start Last Admin Trade Name Freq PRN Reason Stop Dose Admin Albuterol Sulfate 1 amp 02/04/19 11:57 Ventolin 0.042trength) - NEB Q4H PRN SHORT OF BREATH/WHEEZING Albuterol/Ipratropium 1 amp 02/04/19 12:00 02/09/19 15:30 Duoneb - NEB 1 amp RQID ANNI Administration Aspirin 81 mg 02/04/19 10:00 02/09/19 14:10 Asa - PO 81 mg DAILY ANNI Administration Atorvastatin Calcium 10 mg 02/04/19 22:00 02/08/19 22:15 Lipitor - PO 10 mg HS ANNI Administration Budesonide/Formoterol Fumarate 2 puff 02/09/19 22:00 Symbicort 160/4.5mcg - IH BID ANNI Calcitriol 0.5 mcg 02/04/19 11:00 02/09/19 14:12 Rocaltrol Liquid - PO 0.5 mcg DAILY ANNI Administration Calcium Acetate 1,334 mg 02/05/19 17:30 02/09/19 17:57 Phoslo - PO 1,334 mg TIDCM ANNI Administration Carvedilol 25 mg 02/04/19 10:00 02/09/19 14:12 Coreg - PO 25 mg BID ANNI Administration Glipizide 10 mg 02/07/19 16:30 02/09/19 17:22 Glucotrol - PO 10 mg BID@0700,1630 ANNI Administration Guaifenesin 10 ml 02/04/19 16:35 02/09/19 14:22 Robitussin - PO 10 ml Q6H PRN Administration COUGH Heparin Sodium (Porcine) 5,000 unit 02/04/19 06:00 02/09/19 14:15 Heparin - SQ 5,000 unit TID ANNI Administration Sodium Chloride 250 mls @ 3,000 mls/hr 02/06/19 13:03 Normal Saline - IV PRN PRN Hypotension during Dialysis Sodium Chloride 250 mls @ 3,000 mls/hr 02/08/19 17:33 Normal Saline - IV 02/09/19 17:33 PRN PRN Hypotension during Dialysis Sodium Chloride 250 mls @ 3,000 mls/hr 02/09/19 15:08 Normal Saline - IV 02/10/19 15:08 PRN PRN Hypotension during Dialysis Insulin Aspart 1 vial 02/04/19 12:00 02/09/19 17:23 Novolog Vial Sliding Scale - SQ 4 units Q4H ANNI Administration Protocol Insulin Detemir 5 units 02/07/19 22:00 02/08/19 22:17 Levemir Vial SQ 5 units HS ANNI Administration Melatonin 3 mg 02/06/19 01:30 02/08/19 22:16 Melatonin PO 3 mg HS ANNI Administration Montelukast Sodium 10 mg 02/04/19 22:00 02/08/19 22:15 Singulair - PO 10 mg HS ANNI Administration Pantoprazole Sodium 40 mg 02/04/19 10:00 02/09/19 14:10 Protonix - PO 40 mg DAILY ANNI Administration Prednisone 50 mg 02/08/19 10:00 02/09/19 14:12 Deltasone - PO 50 mg DAILY ANNI Administration Sevelamer Carbonate 800 mg 02/04/19 14:00 02/09/19 14:15 Renvela - PO 800 mg TID ANNI Administration Tiotropium [place] 2 puff 02/10/19 10:00 Spiriva Respimat IH DAILY ANNI Valsartan 160 mg 02/05/19 10:00 02/09/19 14:10 Diovan - PO 160 mg DAILY ANNI Administration ASSESSMENT/PLAN: -Mr. Pereira is a 63 yo man with history ESRD (MWF dialysis), pleural effusion s/p VATS DM, HTN, CAD s/p CABG and stents, COPD and lymphoma (s/p radiation, now in remission) presenting with a 1 week history of worsening SOB accompanied by productive cough with white sputum. #SOB 2/2 bronchiectasis -Failed OP azithro -CXR neg -Pulm on board. C/w steroids -viral panel pending -strep neg -CT: L basilar thickening, b/l pulm nodularity, inflammatory change -Sputum and blood cultures pending -Weaning from O2 as tolerated. -ID on board #DM with uncontrolled hypergly -ISS -BGM -A1C 8.8 -resume glipizide #ESRD on HD -Renal following, HD per schedule #HyperK -Mild with no EKG changes noted -getting HD #Hx HTN -controlledISS -BGM -A1C 8.8 -resume glipizide #ESRD on HD -Renal following, HD per schedule #HyperK -Mild with no EKG changes noted -getting HD #Hx HTN -controlled Visit type - Emergency Visit Emergency Visit: No - New Patient This patient is new to me today: No - Critical Care Critical Care patient: No ATTENDING PHYSICIAN STATEMENT I saw and evaluated the patient. I reviewed the resident's note and discussed the case with the resident. I agree with the resident's findings and plan as documented. SUBJECTIVE: OBJECTIVE: ASSESSMENT AND PLAN:
[2019-02-09] MEDS ORDERED: INSULIN (NOVOLOG) ASPART 100 UNITS/ML 10ML VIAL ONE (20:56)
[2019-02-09] MEDS: INSULIN (LEVEMIR) 100 UNITS/ML UNITS SQ SCH (21:04)
[2019-02-09] MEDS: MONTELUKAST NA 10 MG TABLET PO SCH (21:07)
[2019-02-09] MEDS: ATORVASTATIN CA 10 MG TABLET (FP) PO SCH (21:07)
[2019-02-09] MEDS: BUDESONIDE/FORMETEROL FUMARATE 160/4.5 mcg INHALER IH SCH (21:09)
[2019-02-09] MEDS: MELATONIN 1 MG TABLET PO SCH (21:17)
[2019-02-10] MEDS: INSULIN SLIDING SCALE (NOVOLOG) 1 VIAL SQ SCH ×4 (00:09→12:00)
[2019-02-10] MEDS: guaiFENesin 200 MG/10 ML 10 ML UNIT-DOSE CUPS PO PRN (02:00)
[2019-02-10] MEDS: SEVELAMER CARBONATE 800 MG TAB (FP) PO SCH ×2 (05:07→13:41)
[2019-02-10] MEDS: HEPARIN NA (PORCINE) 5,000 UNITS/ML 1ML VIAL SQ SCH ×2 (05:07→13:38)
[2019-02-10] MEDS ORDERED: glipiZIDE 5 MG TABLET (FP) ONE (05:53)
[2019-02-10] MEDS: glipiZIDE 10 MG TABLET (FP) PO SCH (06:02)
[2019-02-10] MEDS: ALBUTEROL SO4 2.5/IPRATROPIUM 0.5 INH SOL 3 ML VIAL.NEB. NEB SCH ×3 (07:29→16:01)
[2019-02-10] MEDS: BUDESONIDE/FORMETEROL FUMARATE 160/4.5 mcg INHALER IH SCH ×2 (08:10→10:00)
[2019-02-10] MEDS: CALCIUM ACETATE 667 MG CAPSULE (FP) PO SCH ×2 (08:12→13:39)
[2019-02-10] MEDS: TIOTROPIUM BROMIDE 2.5 MCG (SPIRIVA) RESPIMAT INHALER IH SCH ×2 (08:13→10:00)
[2019-02-10 09:00] VITALS: TEMP 98.4
[2019-02-10] MEDS ORDERED: PT OWN MED DRAWER 7, Y5N ONE (09:07)
[2019-02-10 09:10] LABS: HEMATOCRIT 33.3 % (35.4-49); HEMOGLOBIN 11.1 GM/dL (11.7-16.9); MCHC 33.4 g/dl (32.0-35.9); MEAN CELL VOLUME 95.8 fl (80-96); MEAN PLT VOLUME 9.9 fl (7.5-11.1); PLATELET COUNT 78 K/MM3 (134-434); RBC 3.48 M/mm3 (4.00-5.60); RDW 14.5 % (11.9-15.9); WHITE BLOOD COUNT 7.6 K/mm3 (4.0-10.0)
[2019-02-10 09:31] LABS: BLOOD UREA NITROGEN 85.4 mg/dL (7-18); CALCIUM 7.5 mg/dL (8.5-10.1); CREATININE 6.4 mg/dL (0.55-1.3); POTASSIUM 4.3 mmol/L (3.5-5.1)
[2019-02-10] MEDS ORDERED: predniSONE 20 MG TABLET (UD) PO SCH (10:00)
--- NOTE | 2019-02-10 10:39 | PN ---
Progress Note (short form) - Note Progress Note: Renal coverage for Dr. Goodman Seen and examined during dialysis BP stable, AVF with good blood flow. UF goal is 4kg as tolerated denies any cp, abd pain, fever, chills or sob Vital Signs Temperature 98.4 F 02/10/19 08:59 Pulse Rate 72 02/10/19 10:30 Respiratory Rate 18 02/10/19 10:30 Blood Pressure 172/74 H 02/10/19 10:30 O2 Sat by Pulse Oximetry (%) 96 02/09/19 21:00 Intake & Output 02/07/19 02/08/19 02/09/19 02/10/19 23:59 23:59 23:59 23:59 Intake Total 1760 1270 1350 680 Output Total 3700 4500 Balance -1940 1270 -3150 680 Weight 91.257 kg 94.529 kg 94.801 kg 94.801 kg NAD awake and alert RRR Dec BS + edema CBC, BMP 02/10/19 08:35 02/10/19 07:41 Current Medications Albuterol Sulfate (Ventolin 0.042trength) -) 1 amp NEB Q4H PRN PRN Reason: SHORT OF BREATH/WHEEZING Albuterol/Ipratropium (Duoneb -) 1 amp NEB RQID [facility] Last Admin: 02/10/19 07:29 Dose: 1 amp Aspirin (Asa -) 81 mg PO DAILY [facility] Last Admin: 02/09/19 14:10 Dose: 81 mg Atorvastatin Calcium (Lipitor -) 10 mg PO HS [facility] Last Admin: 02/09/19 21:07 Dose: 10 mg Budesonide/Formoterol Fumarate (Symbicort 160/4.5mcg -) 2 puff IH BID [facility] Last Admin: 02/10/19 08:10 Dose: 2 puff Calcitriol (Rocaltrol Liquid -) 0.5 mcg PO DAILY [facility] Last Admin: 02/09/19 14:12 Dose: 0.5 mcg Calcium Acetate (Phoslo -) 1,334 mg PO TIDCM [facility] Last Admin: 02/10/19 08:12 Dose: 1,334 mg Carvedilol (Coreg -) 25 mg PO BID [facility] Last Admin: 02/09/19 21:07 Dose: 25 mg Glipizide (Glucotrol -) 10 mg PO BID@0700,1630 [facility] Last Admin: 02/10/19 06:02 Dose: 10 mg Guaifenesin (Robitussin -) 10 ml PO Q6H PRN PRN Reason: COUGH Last Admin: 02/10/19 02:00 Dose: 10 ml Heparin Sodium (Porcine) (Heparin -) 5,000 unit SQ TID [facility] Last Admin: 02/10/19 05:07 Dose: 5,000 unit Sodium Chloride (Normal Saline -) 250 mls @ 3,000 mls/hr IV PRN PRN PRN Reason: Hypotension during Dialysis Sodium Chloride (Normal Saline -) 250 mls @ 3,000 mls/hr IV PRN PRN PRN Reason: Hypotension during Dialysis Stop: 02/09/19 17:33 Sodium Chloride (Normal Saline -) 250 mls @ 3,000 mls/hr IV PRN PRN PRN Reason: Hypotension during Dialysis Stop: 02/10/19 15:08 Insulin Aspart (Novolog Vial Sliding Scale -) 1 vial SQ Q4H [facility]; Protocol Last Admin: 02/10/19 04:42 Dose: 4 units Insulin Detemir (Levemir Vial) 5 units SQ HS [facility] Last Admin: 02/09/19 21:04 Dose: 5 units Melatonin (Melatonin) 3 mg PO HS [facility] Last Admin: 02/09/19 21:17 Dose: 3 mg Montelukast Sodium (Singulair -) 10 mg PO HS [facility] Last Admin: 02/09/19 21:07 Dose: 10 mg Pantoprazole Sodium (Protonix -) 40 mg PO DAILY [facility] Last Admin: 02/09/19 14:10 Dose: 40 mg Prednisone (Deltasone -) 40 mg PO DAILY [facility] Sevelamer Carbonate (Renvela -) 800 mg PO TID [facility] Last Admin: 02/10/19 05:07 Dose: 800 mg Tiotropium [place] (Spiriva Respimat) 2 puff IH DAILY [facility] Last Admin: 02/10/19 08:13 Dose: 2 puff Valsartan (Diovan -) 160 mg PO DAILY [facility] Last Admin: 02/09/19 14:10 Dose: 160 mg IMPRESSION esrd h/o NHL in remission htn h/o cabg h/o thoracotomy copd exacerbation PLAN Tolerating dialysis well Aggressive UF target with HD today continue renal diet and fluid restriction prednisone taper Bud Campbell DO
--- NOTE | 2019-02-10 12:48 | PN ---
Progress Note (short form) - Note Progress Note: In HD. NAD on NC O2. Still with some cough but overall better. Intake & Output 02/07/19 02/08/19 02/09/19 02/10/19 23:59 23:59 23:59 23:59 Intake Total 1760 1270 1350 680 Output Total 3700 4500 Balance -1940 1270 -3150 680 Weight 201 lb 3 oz 208 lb 6.4 oz 209 lb 209 lb Last Vital Signs Temp Pulse Resp BP Pulse Ox 98.4 F 81 18 140/51 L 96 02/10/19 08:59 02/10/19 11:30 02/10/19 11:30 02/10/19 11:30 02/10/19 09:00 Active Medications Albuterol Sulfate (Ventolin 0.042trength) -) 1 amp NEB Q4H PRN PRN Reason: SHORT OF BREATH/WHEEZING Albuterol/Ipratropium (Duoneb -) 1 amp NEB RQID [facility] Last Admin: 02/10/19 07:29 Dose: 1 amp Aspirin (Asa -) 81 mg PO DAILY [facility] Last Admin: 02/09/19 14:10 Dose: 81 mg Atorvastatin Calcium (Lipitor -) 10 mg PO HS [facility] Last Admin: 02/09/19 21:07 Dose: 10 mg Budesonide/Formoterol Fumarate (Symbicort 160/4.5mcg -) 2 puff IH BID [facility] Last Admin: 02/10/19 08:10 Dose: 2 puff Calcitriol (Rocaltrol Liquid -) 0.5 mcg PO DAILY [facility] Last Admin: 02/09/19 14:12 Dose: 0.5 mcg Calcium Acetate (Phoslo -) 1,334 mg PO TIDCM [facility] Last Admin: 02/10/19 08:12 Dose: 1,334 mg Carvedilol (Coreg -) 25 mg PO BID [facility] Last Admin: 02/09/19 21:07 Dose: 25 mg Glipizide (Glucotrol -) 10 mg PO BID@0700,1630 [facility] Last Admin: 02/10/19 06:02 Dose: 10 mg Guaifenesin (Robitussin -) 10 ml PO Q6H PRN PRN Reason: COUGH Last Admin: 02/10/19 02:00 Dose: 10 ml Heparin Sodium (Porcine) (Heparin -) 5,000 unit SQ TID [facility] Last Admin: 02/10/19 05:07 Dose: 5,000 unit Sodium Chloride (Normal Saline -) 250 mls @ 3,000 mls/hr IV PRN PRN PRN Reason: Hypotension during Dialysis Sodium Chloride (Normal Saline -) 250 mls @ 3,000 mls/hr IV PRN PRN PRN Reason: Hypotension during Dialysis Stop: 02/09/19 17:33 Sodium Chloride (Normal Saline -) 250 mls @ 3,000 mls/hr IV PRN PRN PRN Reason: Hypotension during Dialysis Stop: 02/10/19 15:08 Insulin Aspart (Novolog Vial Sliding Scale -) 1 vial SQ Q4H [facility]; Protocol Last Admin: 02/10/19 04:42 Dose: 4 units Insulin Detemir (Levemir Vial) 5 units SQ HS [facility] Last Admin: 02/09/19 21:04 Dose: 5 units Melatonin (Melatonin) 3 mg PO HS [facility] Last Admin: 02/09/19 21:17 Dose: 3 mg Montelukast Sodium (Singulair -) 10 mg PO HS [facility] Last Admin: 02/09/19 21:07 Dose: 10 mg Pantoprazole Sodium (Protonix -) 40 mg PO DAILY [facility] Last Admin: 02/09/19 14:10 Dose: 40 mg Prednisone (Deltasone -) 40 mg PO DAILY [facility] Sevelamer Carbonate (Renvela -) 800 mg PO TID [facility] Last Admin: 02/10/19 05:07 Dose: 800 mg Tiotropium [place] (Spiriva Respimat) 2 puff IH DAILY [facility] Last Admin: 02/10/19 08:13 Dose: 2 puff Valsartan (Diovan -) 160 mg PO DAILY [facility] Last Admin: 02/09/19 14:10 Dose: 160 mg Gen: NAD at rest Heart: RRR Lung: decreased air movement, scattered rhonchi Abd: soft, nontender Ext: no edema Laboratory Results - last 24 hr 02/09/19 02/09/19 02/09/19 13:18 17:18 21:03 WBC RBC Hgb Hct MCV MCH MCHC RDW Plt Count MPV Sodium Potassium Chloride Carbon Dioxide Anion Gap BUN Creatinine Est GFR (CKD-EPI)AfAm Est GFR (CKD-EPI)NonAf POC Glucometer 142 289 482 Random Glucose Calcium 02/09/19 02/10/19 02/10/19 21:19 00:04 04:40 WBC RBC Hgb Hct MCV MCH MCHC RDW Plt Count MPV Sodium Potassium Chloride Carbon Dioxide Anion Gap BUN Creatinine Est GFR (CKD-EPI)AfAm Est GFR (CKD-EPI)NonAf POC Glucometer 479 286 284 Random Glucose Calcium 02/10/19 02/10/19 07:41 08:35 WBC 7.6 RBC 3.48 L Hgb 11.1 L Hct 33.3 L MCV 95.8 MCH 32.0 MCHC 33.4 RDW 14.5 Plt Count 78 L MPV 9.9 Sodium 140 Potassium 4.3 Chloride 99 Carbon Dioxide 32 Anion Gap 9 BUN 85.4 H Creatinine 6.4 H Est GFR (CKD-EPI)AfAm 9.87 Est GFR (CKD-EPI)NonAf 8.51 POC Glucometer Random Glucose 250 H Calcium 7.5 L A/P Acute COPD Exacerbation Chronic Bronchitis Bronchiectasis CAD s/p CABG ESRD on HD HTN DM h/o Lymphoma - Prednisone taper, will likely need slow taper - inhaled bronchodilators standing and PRN - O2 to keep SpO2 >90% - HD per renal - will need outpt PFTs - DVT prophylaxis - Can be discharged from pulmonary standpoint on steroid taper, LABA/ICS, LAMA , nebs Dr Garcia
[2019-02-10 13:02] VITALS: BP 155/66; PULSE 72
[2019-02-10] MEDS: CARVEDILOL 25 MG TABLET (FP) PO SCH (13:39)
[2019-02-10] MEDS: ASPIRIN 81 MG CHEWABLE TABLETS PO SCH (13:39)
[2019-02-10] MEDS: VALSARTAN 160 MG TABLET (UD) PO SCH (13:39)
[2019-02-10] MEDS: PANTOPRAZOLE 40 MG TABLET (FP) PO SCH (13:39)
--- NOTE | 2019-02-10 14:04 | DS ---
Physical Exam: SUBJECTIVE: Patient seen and examined, breathing improved, getting nebulizer treatment, no new complaints. OBJECTIVE: Vital Signs Period Temp Pulse Resp BP Sys/Dominguez Pulse Ox Last 24 Hr 97.7 F-98.4 F 72-93 18-20 140-172/51-103 96-96 Intake & Output 02/07/19 02/08/19 02/09/19 02/10/19 23:59 23:59 23:59 23:59 Intake Total 1760 1270 1350 1210 Output Total 3700 4500 4500 Balance -1940 1270 -3150 -3290 Weight 201 lb 3 oz 208 lb 6.4 oz 209 lb 209 lb PHYSICAL EXAM General: sitting at edge of bed, no acute distress neck: soft, supple Chest: markedly improved, air entry, no rales or wheezing Abdomen:Soft, obese, NT Extremities: no edema HEENT: PERRL, EOMI Psych: Co-operative LABS Laboratory Results - last 24 hr 02/09/19 02/09/19 02/09/19 17:18 21:03 21:19 WBC RBC Hgb Hct MCV MCH MCHC RDW Plt Count MPV Sodium Potassium Chloride Carbon Dioxide Anion Gap BUN Creatinine Est GFR (CKD-EPI)AfAm Est GFR (CKD-EPI)NonAf POC Glucometer 289 482 479 Random Glucose Calcium 02/10/19 02/10/19 02/10/19 00:04 04:40 07:41 WBC RBC Hgb Hct MCV MCH MCHC RDW Plt Count MPV Sodium 140 Potassium 4.3 Chloride 99 Carbon Dioxide 32 Anion Gap 9 BUN 85.4 H Creatinine 6.4 H Est GFR (CKD-EPI)AfAm 9.87 Est GFR (CKD-EPI)NonAf 8.51 POC Glucometer 286 284 Random Glucose 250 H Calcium 7.5 L 02/10/19 08:35 WBC 7.6 RBC 3.48 L Hgb 11.1 L Hct 33.3 L MCV 95.8 MCH 32.0 MCHC 33.4 RDW 14.5 Plt Count 78 L MPV 9.9 Sodium Potassium Chloride Carbon Dioxide Anion Gap BUN Creatinine Est GFR (CKD-EPI)AfAm Est GFR (CKD-EPI)NonAf POC Glucometer Random Glucose Calcium Microbiology 02/03/19 20:52 Blood - Peripheral Venous Blood Culture - Final NO GROWTH AFTER 5 DAYS INCUBATION 02/03/19 20:52 Blood - Peripheral Venous Blood Culture - Final NO GROWTH AFTER 5 DAYS INCUBATION 02/07/19 04:24 Throat Throat Culture - Final NO BETA HEMOLYTIC STREPTOCOCCI ISOLATED 02/04/19 14:19 Sputum - Expectorated Gram Stain - Final 02/04/19 14:19 Sputum - Expectorated Sputum Culture - Final NORMAL RESPIRATORY [place] 02/04/19 14:19 Urine For Antigen Detection Legionella Antigen - Final 02/04/19 14:19 Urine For Antigen Detection Streptococcus pneumoniae Antigen (M - Final CT chest: Evaluation of the lung rodriguez demonstrates pleural thickening and possibly a small amount of fluid at the left lung base. There is mild plate like atelectasis also noted within the left lower lobe. No pulmonary masses or areas of acute consolidation are identified. There are slightly increased interstitial markings that most likely are chronic in nature. There is a 5 mm nodule within the left lower lobe and additional nodularity within the right middle lobe. Clinical correlation and follow-up is recommended. Examination of the mediastinum demonstrates no evidence of mediastinal masses, fluid collections or lymphadenopathy. The patient is S/P CABG procedure. The heart is not significantly enlarged. Evaluation of the upper abdomen demonstrates inflammatory changes/scarring within the left retroperitoneum of the upper abdomen. Extensive lymphadenopathy had been noted in this location on a prior CT scan of the abdomen dated 07/19/2009. The kidneys are somewhat atrophic. There is also a fat-containing ventral hernia in a subxiphoid location. There is no evidence of acute bony pathology. IMPRESSION: 1. Left basilar pleural thickening without evidence of acute infiltrates. 2. Bilateral pulmonary nodularity. 3. Inflammatory change/scarring left retroperitoneum at site of prior extensive lymphadenopathy. Clinical correlation and follow-up recommended. Please see above discussion. HOSPITAL COURSE: Date of Admission:02/03/19 Date of Discharge: 02/10/19 Minutes to complete discharge: 42 Discharge Summary Reason For Visit: PNEUMONIA Current Active Problems Fluid overload (Acute) Pneumonia (Acute) Hospital Course: 63 yom with PMhx of ESRD on HD (MWF), Pleural effusion s/p VATS, NIDDM, HTN, CAD s/p CABG/PCI, COPD, lymphoma (s/p radiation, now in remission), admitted with dyspnea and productive cough with white sputum. he was admitted with acute exacerbation of his COPD/bronchiectasis. He was seen by pulmonary and infectious disease and placed on IV steroids which were slowly tapered. he was monitored off antibiotics. he was afebrile with normal WBC and sputum cultures with normal respiratory rose. CT chest done as above. He was transitioned to oral steroids. Symbicort/Spiriva were added to his regimen. Nephrology was consulted and he continued to have fluid removal with hemodialysis with improvement. He was transiently placed no levemir given uncontrolled blood sugars and A1c was noted at 8.8. His glipizide has been resumed, blood sugars have improved and he is advised home blood glucose monitoring and close follow up with PCP in [place]. He will be discharged home in stable condition with PCP/ pulmonology/nephrology follow up in [place]. Condition: Stable - Instructions Diet, Activity, Other Instructions: You were in the hospital because of shortness of breath. You were seen by firer tunnel kiln, infectious disease and matrix supervisor. You were placed on Intravenous steroids. You did well off antibiotics. You are being discharged on prednisone taper.You are also started on new inhalers symbicort and spiriva per firer tunnel kiln recommendations. You need to follow up with your doctors in [place]. Make sure you see your primary care doctor within a week. You need to follow up with your kidney doctor. In the future, make sure you have a plan in place for hemodialysis before you travel. You can see your own doctor in [place] or follow up with Dr. Goodman. You need to follow up with your lung doctor. You will need pulmonary function testing and a work up for bronchiectasis. You can see your own doctor in [place] or follow up with Dr. Herrera. You will need your blood sugars closely monitored while on steroids and follow up with your doctor for additional medications and management and to address insulin in the near future. You will be sent on an oral steroid. Take 50mg daily for 2 days 40mg for 2 days 30mg for 2 days 20mg for 2 days 10mg for 2 days You are started on symbicort and spiriva. You can discuss with your firer tunnel kiln in [place] about continuation. Continue taking your medications as before. If you notice any severe or worsening symptoms, fevers, chills, change in character or color of sputum, please call 911 or come to ED. Referrals: Jerome Goodman MD [Staff Physician] - 02/09/19 Javed Herrera MD, MD [Staff Physician] - Disposition: HOME - Home Medications Comprehensive Discharge Medication List: Ambulatory Orders Renvela - 800 mg PO TID 02/04/19 Albuterol Sulfate 0.042% [Ventolin 0.042% (Half-Strength) -] 1 amp NEB Q4H PRN amp 02/08/19 Aspirin 81 mg PO DAILY #10 tab.chew 02/08/19 Budesonide/Formeterol Fumarate [SYMBICORT 160/4.5mcg -] 1 inh PO BID #1 cannister 02/08/19 Calcium Acetate [Phoslo -] 667 mg PO TID #30 capsule 02/08/19 Candesartan Cilexetil [Atacand] 8 mg PO BID #20 tablet 02/08/19 Carvedilol 25 mg PO BID #20 tablet 02/08/19 Glipizide 10 mg PO BID #20 tablet 02/08/19 Guaifenesin [Robitussin -] 10 ml PO Q6H PRN #1 bottle 02/08/19 Montelukast Na [Singulair -] 10 mg PO DAILY #10 tablet 02/08/19 Pantoprazole Sodium 40 mg PO DAILY #10 tablet. 02/08/19 Pravastatin Sodium [Pravachol -] 40 mg PO HS #10 tablet 02/08/19 Prednisone See Taper PO DAILY #30 tablet 02/08/19 Sevelamer HCl 800 mg PO TID #30 tablet 02/08/19 Sodium Bicarbonate - 1,950 mg PO TID #30 tablet 02/08/19 Tiotropium [place] [Spiriva] 1 inh PO DAILY #1 inhaler 02/08/19 Albuterol Sulfate Inhaler - [Ventolin HFA Inhaler -] 1 - 2 inh PO Q4H #1 inhaler 02/10/19 This patient is new to me today: No Emergency Visit: Yes ED Registration Date: 02/03/19 Care time: The patient presented to the Emergency Department on the above date and was hospitalized for further evaluation of their emergent condition. Critical Care patient: No - Discharge Referral Referred to [facility] No
--- NOTE | 2019-02-10 14:56 | PN ---
Progress Note, Physician History of Present Illness: Pt states he is feeling better, less SOB, no productive cough, remains afebrile. - Current Medication List Current Medications: Active Medications Albuterol Sulfate (Ventolin 0.042trength) -) 1 amp NEB Q4H PRN PRN Reason: SHORT OF BREATH/WHEEZING Albuterol/Ipratropium (Duoneb -) 1 amp NEB RQID [facility] Last Admin: 02/10/19 13:10 Dose: Not Given Aspirin (Asa -) 81 mg PO DAILY [facility] Last Admin: 02/10/19 13:39 Dose: 81 mg Atorvastatin Calcium (Lipitor -) 10 mg PO HS [facility] Last Admin: 02/09/19 21:07 Dose: 10 mg Budesonide/Formoterol Fumarate (Symbicort 160/4.5mcg -) 2 puff IH BID [facility] Last Admin: 02/10/19 10:00 Dose: Not Given Calcitriol (Rocaltrol Liquid -) 0.5 mcg PO DAILY [facility] Last Admin: 02/09/19 14:12 Dose: 0.5 mcg Calcium Acetate (Phoslo -) 1,334 mg PO TIDCM [facility] Last Admin: 02/10/19 13:39 Dose: 1,334 mg Carvedilol (Coreg -) 25 mg PO BID [facility] Last Admin: 02/10/19 13:39 Dose: 25 mg Glipizide (Glucotrol -) 10 mg PO BID@0700,1630 [facility] Last Admin: 02/10/19 06:02 Dose: 10 mg Guaifenesin (Robitussin -) 10 ml PO Q6H PRN PRN Reason: COUGH Last Admin: 02/10/19 02:00 Dose: 10 ml Heparin Sodium (Porcine) (Heparin -) 5,000 unit SQ TID [facility] Last Admin: 02/10/19 13:38 Dose: 5,000 unit Sodium Chloride (Normal Saline -) 250 mls @ 3,000 mls/hr IV PRN PRN PRN Reason: Hypotension during Dialysis Sodium Chloride (Normal Saline -) 250 mls @ 3,000 mls/hr IV PRN PRN PRN Reason: Hypotension during Dialysis Stop: 02/09/19 17:33 Sodium Chloride (Normal Saline -) 250 mls @ 3,000 mls/hr IV PRN PRN PRN Reason: Hypotension during Dialysis Stop: 02/10/19 15:08 Insulin Aspart (Novolog Vial Sliding Scale -) 1 vial SQ Q4H [facility]; Protocol Last Admin: 02/10/19 12:00 Dose: Not Given Insulin Detemir (Levemir Vial) [address] [facility] Last Admin: 02/09/19 21:04 Dose: 5 units Melatonin (Melatonin) 3 mg PO HS [facility] Last Admin: 02/09/19 21:17 Dose: 3 mg Montelukast Sodium (Singulair -) 10 mg PO HS [facility] Last Admin: 02/09/19 21:07 Dose: 10 mg Pantoprazole Sodium (Protonix -) 40 mg PO DAILY [facility] Last Admin: 02/10/19 13:39 Dose: 40 mg Prednisone (Deltasone -) 40 mg PO DAILY [facility] Last Admin: 02/10/19 13:38 Dose: 40 mg Sevelamer Carbonate (Renvela -) 800 mg PO TID [facility] Last Admin: 02/10/19 13:41 Dose: 800 mg Tiotropium [place] (Spiriva Respimat) 2 puff IH DAILY [facility] Last Admin: 02/10/19 10:00 Dose: Not Given Valsartan (Diovan -) 160 mg PO DAILY [facility] Last Admin: 02/10/19 13:39 Dose: 160 mg - Objective Vital Signs: Vital Signs Temperature 98.4 F 02/10/19 08:59 Pulse Rate 72 02/10/19 12:35 Respiratory Rate 18 02/10/19 12:35 Blood Pressure 155/66 02/10/19 12:35 O2 Sat by Pulse Oximetry (%) 96 02/10/19 09:00 Constitutional: Yes: No Distress, Calm Neck: Yes: Supple Cardiovascular: Yes: Regular Rate and Rhythm Respiratory: Yes: Diminished, On Nasal O2 Gastrointestinal: Yes: Normal Bowel Sounds, Soft, Abdomen, Obese Genitourinary: Yes: WNL Integumentary: Yes: WNL Neurological: Yes: Alert, Oriented Labs: CBC, BMP 02/10/19 08:35 02/10/19 07:41 Microbiology 02/03/19 20:52 Blood - Peripheral Venous Blood Culture - Final NO GROWTH AFTER 5 DAYS INCUBATION 02/03/19 20:52 Blood - Peripheral Venous Blood Culture - Final NO GROWTH AFTER 5 DAYS INCUBATION 02/07/19 04:24 Throat Throat Culture - Final NO BETA HEMOLYTIC STREPTOCOCCI ISOLATED 02/04/19 14:19 Sputum - Expectorated Gram Stain - Final 02/04/19 14:19 Sputum - Expectorated Sputum Culture - Final NORMAL RESPIRATORY [place] 02/04/19 14:19 Urine For Antigen Detection Legionella Antigen - Final 02/04/19 14:19 Urine For Antigen Detection Streptococcus pneumoniae Antigen (M - Final - ....Imaging Chest X-ray: Report Reviewed Assessment/Plan Acute COPD Exacerbation Bronchitis ESRD on HD DM CAD NHL in remission -- stable off antibiotics at this time -- continues on prednisone/bronchodilators -- for d/c home today
== END 2019-02-10 16:28 | disposition home or self-care (01) | DRG 190 ==
LOC: SUPCPDRO 17:05 → JER 17:05 → JERBED 22:33 → J6S 02-04 03:20
PROVIDERS: ADMIT Internal Medicine; ATTEND Hospitalist
PROC: 3E0F7GC Introduction of Other Therapeutic Substance into Respiratory Tract, Via Natural or Artificial Opening (ICD-10-PCS; principal; 2019-02-03)
PROC: 5A1D70Z Performance of Urinary Filtration, Intermittent, Less than 6 Hours Per Day (ICD-10-PCS; 2019-02-05)
DX: J44.1 Chronic obstructive pulmonary disease with (acute) exacerbation (principal); J18.9 Pneumonia, unspecified organism; N18.6 End stage renal disease; I12.0 Hypertensive chronic kidney disease with stage 5 chronic kidney disease or end stage renal disease; E11.22 Type 2 diabetes mellitus with diabetic chronic kidney disease; Z99.2 Dependence on renal dialysis; I25.10 Atherosclerotic heart disease of native coronary artery without angina pectoris; Z95.1 Presence of aortocoronary bypass graft; E87.70 Fluid overload, unspecified; E11.65 Type 2 diabetes mellitus with hyperglycemia; E21.2 Other hyperparathyroidism; E87.5 Hyperkalemia; I45.81 Long QT syndrome; E83.39 Other disorders of phosphorus metabolism; E66.9 Obesity, unspecified; Z68.33 Body mass index [BMI] 33.0-33.9, adult
CPT/HCPCS: 36415; 36600; 71046-TC-FY; 71250-TC; 80048; 80053; 82803; 82947; 82962; 82977; 83036; 83735; 83880; 84100; 84484; 85025; 85027; 86803; 87040; 87070; 87205; 87340; 87633; 87804; 87880; 87899; 93005; 93010; 93306-TC; 94640; 94761; 97116-GP; 97161-GP; 99284-25; J1644